=== PATIENT | female | born 1940 | race Caucasian/White ===

== ENCOUNTER → 2018-02-11 00:26 | Outpatient (CLI) | payer MEDICARE, SELFPAY ==
--- NOTE | 2018-02-11 10:10 | DI.REPORT_ITS ---
SYMPTOM/DIAGNOSIS: ABNORMAL MAMMO R928 RIGHT MAMMOGRAM: Mammograms were interpreted according to the usual protocol including computer analysis with CAD system, tomosynthesis and C view imaging. This is a 6-month follow up from August 2017 for question of asymmetry in the superior right breast. The right breast is composed of heterogeneously dense fibroglandular tissue, breast density Category C. An intramammary lymph node is again noted in the lower inner quadrant. No suspicious masses or suspicious microcalcifications are seen. The previously questioned asymmetry in the superior breast is not identified on the current exam. There has been no change when compared with exams back to 2013. IMPRESSION: Category 1-C, negative mammogram. Bilateral screening should be resumed in 6 months. [facility] ASSESSMENT OF FINDINGS: Negative. Category 1. Patient will receive a letter notifying them of these results. Bi-RADS category C. The breasts are heterogeneously dense, which may obscure small masses.
== END ==
PROVIDERS: PCP Family Medicine; Visit Provider Family Medicine
DX: Z12.31 Encounter for screening mammogram for malignant neoplasm of breast (principal); R92.8 Other abnormal and inconclusive findings on diagnostic imaging of breast; N60.81 Other benign mammary dysplasias of right breast
CPT/HCPCS: 77065; G0279; 77061

== ENCOUNTER 2018-02-28 10:42 | Outpatient (REF) | payer MEDICARE, SELFPAY ==
[2018-02-28 19:19] LABS: C-Reactive Protein 1.55 mg/dL (0.0-0.3); TSH (W/Ref FT4) 0.42 uIU/mL (0.358-3.74)
[2018-02-28 20:09] LABS: ESR 22 MM/HR (0-30)
== END 2018-02-28 10:43 ==
LOC: NCHCN 10:42
PROVIDERS: PCP Family Medicine; Visit Provider Family Medicine
DX: E03.9 Hypothyroidism, unspecified (principal); M35.3 Polymyalgia rheumatica
CPT/HCPCS: 85652; 84443; 86140

== ENCOUNTER 2018-04-07 10:23 | Outpatient (CLI) | payer MEDICARE, SELFPAY ==
--- NOTE | 2018-04-07 14:20 | DI.RAD_ITS ---
SYMPTOM/DIAGNOSIS: RT SHOULDER PAIN RIGHT SHOULDER: Three views. Mild hypertrophic changes are seen at the acromioclavicular joint. The glenohumeral joint appears well maintained. The bones are normally mineralized. The soft tissues are unremarkable. IMPRESSION: Mild degenerative changes of the right AC joint. LEFT SHOULDER: Three views. There are mild hypertrophic changes seen at the acromioclavicular joint. The glenohumeral joint appears well maintained. The bones are intact and normally mineralized. The soft tissues are unremarkable. IMPRESSION: Mild degenerative changes of the left AC joint.
== END 2018-04-07 10:43 ==
PROVIDERS: PCP Family Medicine; Referring Provider Family Medicine; Visit Provider Student in an Organized Health Care Education/Training Program
DX: M25.511 Pain in right shoulder (principal); M25.512 Pain in left shoulder; M19.011 Primary osteoarthritis, right shoulder; M19.012 Primary osteoarthritis, left shoulder
CPT/HCPCS: 99214; 73030

== ENCOUNTER 2018-04-07 14:34 | Outpatient (CLI) | payer MEDICARE, SELFPAY | END 2018-04-07 14:54 | PROVIDERS: PCP Family Medicine; Visit Provider Family Medicine | DX: M76.821 Posterior tibial tendinitis, right leg (principal); M76.822 Posterior tibial tendinitis, left leg; M67.911 Unspecified disorder of synovium and tendon, right shoulder; M67.912 Unspecified disorder of synovium and tendon, left shoulder | CPT/HCPCS: 99214 ==

== ENCOUNTER 2018-04-14 12:54 | Outpatient (REF) | payer MEDICARE, SELFPAY ==
[2018-04-14 18:57] LABS: C-Reactive Protein 1.35 mg/dL (0.0-0.3)
[2018-04-14 19:31] LABS: ESR 24 MM/HR (0-30)
== END 2018-04-14 13:14 ==
LOC: NCHCN 12:54
PROVIDERS: PCP Family Medicine; Visit Provider Family Medicine
DX: M35.3 Polymyalgia rheumatica (principal)
CPT/HCPCS: 85652; 86140

== ENCOUNTER 2018-05-14 01:52 | Outpatient (CLI) | payer MEDICARE, SELFPAY ==
[2018-05-14 16:52] LABS: C-Reactive Protein 1.36 mg/dL (0.0-0.3)
[2018-05-14 20:04] LABS: ESR 32 MM/HR (0-30)
== END 2018-05-14 02:12 ==
PROVIDERS: PCP Family Medicine; Visit Provider Internal Medicine Rheumatology
DX: M35.3 Polymyalgia rheumatica (principal); Z79.52 Long term (current) use of systemic steroids
CPT/HCPCS: 36415; 85652; 86140

== ENCOUNTER → 2018-06-02 11:17 | Outpatient (BNVA) | payer MEDICARE, SELFPAY | PROVIDERS: PCP Family Medicine; Visit Provider Student in an Organized Health Care Education/Training Program | DX: M76.821 Posterior tibial tendinitis, right leg; M76.822 Posterior tibial tendinitis, left leg | CPT/HCPCS: 99213 ==

== ENCOUNTER 2018-06-12 01:57 | Outpatient (CLI) | payer MEDICARE, SELFPAY ==
[2018-06-12 08:35] LABS: HCT 41.9 % (36.0-46.0); HGB 13.7 g/dL (12.0-15.5); Mean Corp. HGB Concentration 32.7 g/dL (32.0-36.0); Mean Corpuscular Hemoglobin 31.1 pg (27.0-33.0); Mean Platelet Volume 9.2 fL (8.0-11.0); Platelet Count 370 x1000/uL (130-400); RBC 4.41 m/cumm (4.00-5.20); RBC Distribution Width 13.7 % (11.7-14.6); White Blood Cell Count 7.82 k/cumm (4.4-10.8)
[2018-06-12 09:56] LABS: ESR 15 MM/HR (0-30)
[2018-06-12 10:13] LABS: ALT 71 U/L (12-78); AST 36 U/L (15-37); Albumin 3.7 g/dL (3.4-5.0); Alkaline Phosphatase 89 U/L (46-116); Anion Gap 10.6 mmol/L (3-11); BUN 16 mg/dL (7-18); Bilirubin, Total 0.4 mg/dL (0.2-1.0); C-Reactive Protein 0.63 mg/dL (0.0-0.3); CO2 27.4 mmol/L (21.0-32.0); Calcium 9.1 mg/dL (8.5-10.1); Chloride 100 mmol/L (98-107); Glucose 89 mg/dL (70-100); Potassium 4.2 mmol/L (3.5-5.1); Sodium 138 mmol/L (136-145); Total Protein 7.2 g/dL (6.4-8.2)
== END 2018-06-12 02:17 ==
PROVIDERS: PCP Family Medicine; Visit Provider Internal Medicine Rheumatology
DX: M35.3 Polymyalgia rheumatica (principal); Z79.52 Long term (current) use of systemic steroids
CPT/HCPCS: 36415; 80053; 85027; 85652; 86140

== ENCOUNTER 2018-07-18 07:41 | Outpatient (CLI) | payer MEDICARE, SELFPAY ==
[2018-07-18 11:17] LABS: C-Reactive Protein 0.45 mg/dL (0.0-0.3)
[2018-07-18 13:09] LABS: ESR 15 MM/HR (0-30)
== END 2018-07-18 08:01 ==
PROVIDERS: PCP Family Medicine; Visit Provider Internal Medicine Rheumatology
DX: M35.3 Polymyalgia rheumatica (principal); Z79.52 Long term (current) use of systemic steroids
CPT/HCPCS: 36415; 85652; 86140

== ENCOUNTER 2018-08-15 01:37 | Outpatient (CLI) | payer MEDICARE, SELFPAY ==
--- NOTE | 2018-08-15 09:19 | DI.MAMMO_ITS ---
SYMPTOM/DIAGNOSIS: SCREENING, Z12.39 MAMMOGRAMS: Mammograms were interpreted according to the usual protocol including computer analysis with CAD system, tomosynthesis and C view imaging. Comparison is made with prior examinations. Breast density, Category C. No suspicious masses or microcalcifications are seen. There is no definite evidence of malignancy. IMPRESSION: Negative mammogram. Routine screening is recommended. Category 1. [facility] ASSESSMENT OF FINDINGS: Negative. Category 1. Patient will receive a letter notifying them of these results. Bi-RADS category C. The breasts are heterogeneously dense, which may obscure small masses.
== END 2018-08-15 01:57 ==
PROVIDERS: PCP Family Medicine; Visit Provider Family Medicine
DX: Z12.31 Encounter for screening mammogram for malignant neoplasm of breast (principal)
CPT/HCPCS: 77063; 77067

== ENCOUNTER 2018-09-29 08:43 | Outpatient (CLI) | payer MEDICARE, SELFPAY ==
[2018-09-29 11:18] LABS: HCT 39.9 % (36.0-46.0); HGB 13.3 g/dL (12.0-15.5); Mean Corp. HGB Concentration 33.3 g/dL (32.0-36.0); Mean Corpuscular Hemoglobin 31.3 pg (27.0-33.0); Mean Corpuscular Volume 93.9 fL (80-95); Mean Platelet Volume 9.3 fL (8.0-11.0); Platelet Count 362 x1000/uL (130-400); RBC 4.25 m/cumm (4.00-5.20); White Blood Cell Count 8.02 k/cumm (4.4-10.8)
[2018-09-29 12:05] LABS: ALT 57 U/L (12-78); AST 30 U/L (15-37); Albumin 3.8 g/dL (3.4-5.0); Alkaline Phosphatase 93 U/L (46-116); Anion Gap 9.8 mmol/L (3-11); BUN 12 mg/dL (7-18); Bilirubin, Total 0.3 mg/dL (0.2-1.0); C-Reactive Protein 0.57 mg/dL (0.0-0.3); CO2 29.2 mmol/L (21.0-32.0); CREATININE 0.71 mg/dL (0.55-1.02); Calcium 9.4 mg/dL (8.5-10.1); Chloride 100 mmol/L (98-107); Glucose 100 mg/dL (70-100); Potassium 4.1 mmol/L (3.5-5.1); Sodium 139 mmol/L (136-145); Total Protein 7.2 g/dL (6.4-8.2)
[2018-09-29 12:26] LABS: ESR 15 MM/HR (0-30)
== END 2018-09-29 09:03 ==
PROVIDERS: PCP Family Medicine; Visit Provider Internal Medicine Rheumatology
DX: M35.3 Polymyalgia rheumatica (principal); Z79.52 Long term (current) use of systemic steroids
CPT/HCPCS: 36415; 80053; 85027; 85652; 86140

== ENCOUNTER → 2018-11-06 13:15 | Outpatient (BNVA) | payer MEDICARE, SELFPAY | PROVIDERS: PCP Family Medicine; Visit Provider Nurse Practitioner Gerontology | DX: N39.46 Mixed incontinence (principal) | CPT/HCPCS: 99215 ==

== ENCOUNTER 2019-01-08 01:35 | Outpatient (CLI) | payer MEDICARE, SELFPAY ==
[2019-01-08 08:46] LABS: HCT 39.8 % (36.0-46.0); Mean Corp. HGB Concentration 32.7 g/dL (32.0-36.0); Mean Corpuscular Hemoglobin 30.4 pg (27.0-33.0); Mean Corpuscular Volume 93.2 fL (80-95); Mean Platelet Volume 9.8 fL (8.0-11.0); Platelet Count 328 x1000/uL (130-400); RBC 4.27 m/cumm (4.00-5.20); RBC Distribution Width 14.2 % (11.7-14.6); White Blood Cell Count 7.02 k/cumm (4.4-10.8)
[2019-01-08 09:50] LABS: ALT 94 U/L (12-78); Albumin 3.6 g/dL (3.4-5.0); Alkaline Phosphatase 115 U/L (46-116); Anion Gap 9.8 mmol/L (3-11); BUN 23 mg/dL (7-18); Bilirubin, Total 0.2 mg/dL (0.2-1.0); C-Reactive Protein 0.67 mg/dL (0.0-0.3); CO2 27.2 mmol/L (21.0-32.0); CREATININE 0.87 mg/dL (0.55-1.02); Calcium 8.8 mg/dL (8.5-10.1); Chloride 105 mmol/L (98-107); Glucose 103 mg/dL (70-100); Potassium 4.4 mmol/L (3.5-5.1); Sodium 142 mmol/L (136-145); TSH (W/Ref FT4) 0.48 uIU/mL (0.358-3.74)
[2019-01-08 09:53] LABS: ESR 16 MM/HR (0-30)
[2019-01-08 10:24] LABS: AST 64 U/L (15-37)
== END 2019-01-08 01:55 ==
PROVIDERS: PCP Family Medicine; Visit Provider Family Medicine
DX: E03.9 Hypothyroidism, unspecified (principal); E78.5 Hyperlipidemia, unspecified; R53.83 Other fatigue
CPT/HCPCS: 36415; 80053; 85027; 85652; 84443; 86140

== ENCOUNTER → 2019-03-10 11:35 | Outpatient (BNVA) | payer MEDICARE, SELFPAY | PROVIDERS: PCP Family Medicine; Visit Provider Nurse Practitioner Gerontology | DX: N39.46 Mixed incontinence (principal) | CPT/HCPCS: 99213 ==

== ENCOUNTER 2019-04-09 12:18 | Outpatient (REF) | payer MEDICARE, SELFPAY ==
[2019-04-09 13:40] LABS: Iron 129 ug/dL (50-175); Total Iron Binding Capacity 305 ug/dL (250-450); Transferrin Sat 42 % (15-50)
[2019-04-09 13:44] LABS: ALT 173 U/L (14-59); AST 81 U/L (15-37); Albumin 3.9 g/dL (3.4-5.0); Alkaline Phosphatase 119 U/L (46-116); Bilirubin, Total 0.5 mg/dL (0.2-1.0); CREATININE 0.79 mg/dL (0.55-1.02); Ferritin 330 ng/mL (8-388); Total Protein 7.6 g/dL (6.4-8.2)
[2019-04-09 14:02] LABS: Bilirubin, Direct 0.11 mg/dL (0.00-0.20)
[2019-04-09 14:57] LABS: ESR 18 mm/hr (0-30)
[2019-04-10 10:40] LABS: Hepatitis A Antibody IgM Negative (NEGAT); Hepatitis B Core Antibody Negative (NEGAT); Hepatitis B surface Ag Negative (NEGAT); Hepatitis C Ab w Rflx HCV PCR Negative (NEGAT)
== END 2019-04-09 12:38 ==
LOC: NCHCN 12:18
PROVIDERS: PCP Family Medicine; Visit Provider Family Medicine
DX: M35.3 Polymyalgia rheumatica (principal); R32 Unspecified urinary incontinence; R79.89 Other specified abnormal findings of blood chemistry
CPT/HCPCS: 80076; 85652; 86704; 86709; 86803; 87340; 82565; 82728; 83540; 83550

== ENCOUNTER 2019-05-11 01:16 | Outpatient (CLI) | payer MEDICARE, SELFPAY ==
--- NOTE | 2019-05-11 07:00 | DI.US_ITS ---
EXAM: US ABDOMEN CLINICAL HISTORY: ELEVATED LFT'S,R79.89 TECHNIQUE: Ultrasound performed using standard protocol. COMPARISON: No previous for comparison FINDINGS: The aorta and inferior vena cava are unremarkable. The liver measures 17 cm in length. There is diffuse increased echogenicity of the liver consistent with fatty infiltration. There does appear to be a lobulated contour of the liver with an enlarged l eft lobe. Hepatic cirrhosis should be considered. No hepatic mass is seen. There is hepatopetal fl ow through the portal vein. The gallbladder is unremarkable. No gallbladder wall thickening or pericholecystic fluid is seen. T here is a negative sonographic Aguillon's sign. The common duct is within normal limits at 2.7 mm. The pancreas is unremarkable as visualized. The spleen and kidneys are unremarkable as visualized. No free fluid is seen in the abdomen. IMPRESSION: 1. Findings consistent with hepatic steatosis. 2. Appearance of the liver raises the question of hepatic cirrhosis. Please correlate clinically.
== END 2019-05-11 01:36 ==
PROVIDERS: PCP Family Medicine; Visit Provider Family Medicine
DX: K76.0 Fatty (change of) liver, not elsewhere classified (principal); R79.89 Other specified abnormal findings of blood chemistry; R16.0 Hepatomegaly, not elsewhere classified
CPT/HCPCS: 76700

== ENCOUNTER → 2019-05-18 13:23 | Outpatient (BNVA) | payer MEDICARE, SELFPAY | PROVIDERS: PCP Family Medicine; Referring Provider Family Medicine; Visit Provider Nurse Practitioner Gerontology | DX: N39.46 Mixed incontinence (principal) | CPT/HCPCS: 99213 ==

== ENCOUNTER 2019-05-30 09:20 | Outpatient (CLI) | payer MEDICARE, SELFPAY ==
[2019-05-30 11:38] LABS: ALT 102 U/L (14-59); AST 47 U/L (15-37); Albumin 3.9 g/dL (3.4-5.0); Alkaline Phosphatase 90 U/L (46-116); Anion Gap 14.4 mmol/L (3-11); BUN 23 mg/dL (7-18); Bilirubin, Total 0.4 mg/dL (0.2-1.0); CO2 25.6 mmol/L (21.0-32.0); CREATININE 0.69 mg/dL (0.55-1.02); Calcium 8.9 mg/dL (8.5-10.1); Calculated LDL 159 mg/dL; Chloride 100 mmol/L (98-107); Cholesterol 252 mg/dL (<200); Glucose 125 mg/dL (74-106); HDL Cholesterol 78 mg/dL (40-60); Potassium 4.3 mmol/L (3.5-5.1); Sodium 140 mmol/L (136-145); Total Protein 7.3 g/dL (6.4-8.2); Triglyceride 76 mg/dL (<150)
== END 2019-05-30 09:40 ==
PROVIDERS: PCP Family Medicine; Visit Provider Family Medicine
DX: E78.5 Hyperlipidemia, unspecified (principal); R79.89 Other specified abnormal findings of blood chemistry
CPT/HCPCS: 36415; 80053; 80061

== ENCOUNTER 2019-06-06 10:24 | Outpatient (CLI) | payer MEDICARE, SELFPAY ==
[2019-06-06 11:22] LABS: HCT 41.8 % (36.0-46.0); HGB 14.1 g/dL (12.0-15.5); Mean Corp. HGB Concentration 33.7 g/dL (32.0-36.0); Mean Platelet Volume 8.9 fL (8.0-11.0); Platelet Count 402 x1000/uL (130-400); RBC Distribution Width 13.3 % (11.7-14.6); White Blood Cell Count 7.09 k/cumm (4.4-10.8)
[2019-06-06 12:04] LABS: ESR 19 mm/hr (0-30)
[2019-06-06 12:27] LABS: ALT 76 U/L (14-59); AST 37 U/L (15-37); Albumin 4.2 g/dL (3.4-5.0); Alkaline Phosphatase 85 U/L (46-116); Anion Gap 9.7 mmol/L (3-11); BUN 22 mg/dL (7-18); Bilirubin, Total 0.4 mg/dL (0.2-1.0); CO2 29.3 mmol/L (21.0-32.0); CREATININE 0.71 mg/dL (0.55-1.02); Calcium 9.5 mg/dL (8.5-10.1); Chloride 99 mmol/L (98-107); Glucose 102 mg/dL (74-106); Potassium 4.2 mmol/L (3.5-5.1); Sodium 138 mmol/L (136-145); TSH (W/Ref FT4) 3.49 uIU/mL (0.36-3.74); Total Protein 7.6 g/dL (6.4-8.2)
[2019-06-08 11:34] LABS: IgA 395 mg/dL (85-499); IgG 1014 mg/dL (610-1,616); IgM 56 mg/dL (35-242)
[2019-06-08 14:21] LABS: ANA Interpretation Negative (Negative)
[2019-06-08 15:52] LABS: Albumin 60.3 % (55.8-66.1); Total Protein 7.5 g/dL (6.3-8.2)
[2019-06-09 12:33] LABS: Smooth Muscle Ab Screen Negative (Negative)
[2019-06-09 15:43] LABS: Liver/Kidney Microsome Type 1 <5.0 U
== END 2019-06-06 10:44 ==
PROVIDERS: PCP Family Medicine; Visit Provider Family Medicine
DX: E03.9 Hypothyroidism, unspecified (principal); E78.5 Hyperlipidemia, unspecified; R53.83 Other fatigue; R79.89 Other specified abnormal findings of blood chemistry; M35.3 Polymyalgia rheumatica; R32 Unspecified urinary incontinence
CPT/HCPCS: 36415; 80053; 82390; 82784; 85027; 85652; 84165; 84443; 86038; 86140; 86255

== ENCOUNTER → 2019-08-18 14:55 | Outpatient (BNVA) | payer MEDICARE, SELFPAY | PROVIDERS: PCP Family Medicine; Referring Provider Family Medicine; Visit Provider Nurse Practitioner Gerontology | DX: N39.46 Mixed incontinence (principal) | CPT/HCPCS: 99213 ==

== ENCOUNTER 2019-09-01 18:22 | Outpatient (REF) | payer MEDICARE, SELFPAY ==
[2019-09-01 19:13] LABS: ALT 44 U/L (14-59); AST 29 U/L (15-37); Albumin 3.9 g/dL (3.4-5.0); Alkaline Phosphatase 96 U/L (46-116); Bilirubin, Total 0.3 mg/dL (0.2-1.0); Calculated LDL 118 mg/dL (<100); Cholesterol 214 mg/dL (<200); HDL Cholesterol 64 mg/dL (40-60); Total Protein 7.2 g/dL (6.4-8.2); Triglyceride 164 mg/dL (<150)
[2019-09-01 19:44] LABS: Bilirubin, Direct 0.08 mg/dL (0.00-0.20)
== END 2019-09-01 18:42 ==
LOC: NCHCN 18:22
PROVIDERS: PCP Family Medicine; Visit Provider Family Medicine
DX: R79.89 Other specified abnormal findings of blood chemistry (principal)
CPT/HCPCS: 80061; 80076

== ENCOUNTER 2019-09-08 09:42 | Outpatient (REF) | payer MEDICARE, SELFPAY | END 2019-09-08 10:02 | LOC: NCHCN 09:42 | PROVIDERS: PCP Family Medicine; Visit Provider Family Medicine | DX: M35.3 Polymyalgia rheumatica (principal) | CPT/HCPCS: 85652 ==

== ENCOUNTER 2019-09-09 17:55 | Outpatient (REF) | payer MEDICARE, SELFPAY ==
[2019-09-09 20:29] LABS: ESR 23 mm/hr (0-30)
== END 2019-09-09 18:15 ==
LOC: NCHCN 17:55
PROVIDERS: PCP Family Medicine; Visit Provider Family Medicine
DX: M35.3 Polymyalgia rheumatica (principal)
CPT/HCPCS: 85652

== ENCOUNTER → 2019-10-01 10:39 | Outpatient (BNVA) | payer MEDICARE, SELFPAY | PROVIDERS: PCP Family Medicine; Referring Provider Family Medicine; Visit Provider Nurse Practitioner Gerontology | DX: N39.46 Mixed incontinence (principal) | CPT/HCPCS: 99212; 99213 ==

== ENCOUNTER 2019-10-28 17:29 | Outpatient (REF) | payer MEDICARE, SELFPAY ==
[2019-11-26 10:23] LABS: Fungus Smear No Fungi Seen
== END 2019-10-28 17:49 ==
LOC: NCHCN 17:29
PROVIDERS: PCP Family Medicine; Visit Provider Family Medicine
DX: B35.1 Tinea unguium (principal)
CPT/HCPCS: 87101; 87206

== ENCOUNTER → 2020-01-05 09:59 | Outpatient (BNVA) | payer MEDICARE, SELFPAY | PROVIDERS: PCP Family Medicine; Referring Provider Family Medicine; Visit Provider Nurse Practitioner Gerontology | DX: N39.46 Mixed incontinence (principal) | CPT/HCPCS: 99213 ==

== ENCOUNTER 2020-01-22 01:49 | Outpatient (CLI) | payer MEDICARE, SELFPAY ==
[2020-01-22 08:25] LABS: HCT 39.3 % (36.0-46.0); HGB 13.1 g/dL (12.0-15.5); Mean Corp. HGB Concentration 33.3 g/dL (32.0-36.0); Mean Corpuscular Hemoglobin 30.6 pg (27.0-33.0); Mean Corpuscular Volume 91.8 fL (80-95); Platelet Count 397 x1000/uL (130-400); RBC 4.28 m/cumm (4.00-5.20); RBC Distribution Width 13.8 % (11.7-14.6); White Blood Cell Count 5.52 k/cumm (4.4-10.8)
[2020-01-22 08:51] LABS: Hemoglobin A1C 5.7 % (3.8-5.6)
[2020-01-22 09:08] LABS: ESR 23 mm/hr (0-30)
[2020-01-22 09:23] LABS: ALT 35 U/L (14-59); AST 21 U/L (15-37); Albumin 3.8 g/dL (3.4-5.0); Alkaline Phosphatase 81 U/L (46-116); BUN 22 mg/dL (7-18); Bilirubin, Total 0.4 mg/dL (0.2-1.0); CREATININE 0.66 mg/dL (0.55-1.02); Calcium 9.1 mg/dL (8.5-10.1); Calculated LDL 136 mg/dL (<100); Chloride 102 mmol/L (98-107); Cholesterol 214 mg/dL (<200); Glucose 106 mg/dL (74-106); HDL Cholesterol 51 mg/dL (40-60); Potassium 4.3 mmol/L (3.5-5.1); Sodium 137 mmol/L (136-145); Total Protein 7.1 g/dL (6.4-8.2); Triglyceride 137 mg/dL (<150)
== END 2020-01-22 02:09 ==
PROVIDERS: PCP Family Medicine; Visit Provider Internal Medicine Gastroenterology
DX: K76.0 Fatty (change of) liver, not elsewhere classified (principal); M35.3 Polymyalgia rheumatica; E03.9 Hypothyroidism, unspecified
CPT/HCPCS: 36415; 80053; 80061; 85027; 85652; 83036

== ENCOUNTER 2020-03-10 01:33 | Outpatient (CLI) | payer MEDICARE, SELFPAY ==
--- NOTE | 2020-03-10 | DI.DEXA_ITS ---
EXAM: XR DEXA BONE DENSITY W/WO NADIA CLINICAL HISTORY: OSTEOPENIA,M85,88,DISORDER OF BONE DENSITY TECHNIQUE: ACTV8me Horizon C densitometer COMPARISON: 2003, 2006, 2009 and 2013 FINDINGS: Lateral asbestos remover view of the thoracic and lumbar spine shows no evidence of compression fracture. The b one mineral density measurements of lumbar spine correspond to a total T-score of -1.2, in the osteop enic range. This is not significantly changed from 2014. This represents a 3.9 percent increase whe n compared with 2003 baseline exam. The bone mineral density measurements of the left hip correspond to a total T-score of -0.4, in the n ormal range. This represents a 6.5 percent increase when compared with 2013 and a 9.9 percent increa se when compared with 2002. Bone mineral density measurements of the right forearm correspond to a total T-score of -2.3, in the osteopenic range. The T-score of the distal 3rd is -2.4. This is not significantly changed from 201 4. There has been a 2.9 percent decrease when compared with 2009. IMPRESSION: Osteopenia of the lumbar spine and normal bone mineral density of the left hip with increase in bone density when compared with previous exams. Osteopenia of the right forearm with mild decrease when c ompared with previous exams.
--- NOTE | 2020-03-10 10:47 | DI.MAMMO_ITS ---
EXAM: MAMMO SCREENING CLINICAL HISTORY: SCREENING,Z12.39 TECHNIQUE: Mammograms were interpreted according to the usual protocol including computer analysis w [employer] CAD system, tomosynthesis and C-view imaging. COMPARISON: 2009 through 2018 FINDINGS: The breasts are composed of heterogeneously dense fibroglandular densities, Breast Density category C . No suspicious masses or suspicious microcalcifications are seen. No skin thickening or abnormal axillary lymph nodes are seen. There has been no significant change from prior exams. IMPRESSION: BI-RADS Category 1: Negative mammogram Yearly screening mammography is recommended. Breast Density - Category C, heterogeneously dense tissue which decreases the sensitivity of the mamm ogram. The mammogram demonstrates the patient's breast tissue is dense. Dense breast tissue is very common a nd is not abnormal but dense breast tissue can make it harder to find cancer on a mammogram. Also, de nse breast tissue may increase breast cancer risk. This information about the result of the mammogram report was provided to the patient to raise their awareness. Use this report when you speak with the patient about their risks for breast cancer, which includes their family history. At that time, you may recommend additional screening tests (Ultrasound or MRI) as they might be useful based on their r isk. A negative radiographic report should not delay biopsy if a dominant or clinically suspicious mass is present. Up to ten percent of cancers are not identified on mammography. A negative report may reinforce clinical impression. Adenosis and dense breasts may obscure an underlying neoplasm. False positive reports average 6 to 10%.
== END 2020-03-10 01:53 ==
PROVIDERS: PCP Family Medicine; Visit Provider Family Medicine
DX: Z12.31 Encounter for screening mammogram for malignant neoplasm of breast (principal); R92.2 Inconclusive mammogram; M85.89 Other specified disorders of bone density and structure, multiple sites
CPT/HCPCS: 77063; 77067; 77080

== ENCOUNTER 2020-06-07 08:28 | Outpatient (REF) | payer MEDICARE, SELFPAY ==
[2020-06-07 18:14] LABS: HCT 39.5 % (36.0-46.0); HGB 13.2 g/dL (11.2-15.7); MCH 30.6 pg (27.0-33.0); MCHC 33.4 % (32.0-36.0); MCV 91.6 fL (80-95); MPV 11.7 fL (8.0-11.0); Platelet Count 376 10^3/uL (130-400); RBC 4.31 10^6/uL (3.93-5.22); RDW 14.6 % (11.7-14.6); RDW-SD 49.6 fL
[2020-06-07 18:32] LABS: Hemoglobin A1C 5.2 % (<5.7)
[2020-06-07 18:42] LABS: ALT 263 U/L (14-59); AST 196 U/L (15-37); Albumin 3.4 g/dL (3.4-5.0); Anion Gap 9.4 mmol/L (3-11); BUN 19 mg/dL (7-18); Bilirubin, Total 3.9 mg/dL (0.2-1.0); C-Reactive Protein 4.74 mg/dL (0.0-0.3); CO2 25.6 mmol/L (21.0-32.0); CREATININE 0.73 mg/dL (0.55-1.02); Calcium 9.3 mg/dL (8.5-10.1); Chloride 98 mmol/L (98-107); Glucose 112 mg/dL (74-106); Sodium 133 mmol/L (136-145); Total Protein 7.2 g/dL (6.4-8.2)
[2020-06-07 18:44] LABS: Alkaline Phosphatase 1550 U/L (46-116)
[2020-06-07 19:09] LABS: ESR 52 mm/hr (0-30)
[2020-06-07 19:38] LABS: Vitamin D 25 Total 43.5 ng/ml (30-100)
== END 2020-06-07 08:48 ==
LOC: NCHCN 08:28
PROVIDERS: PCP Family Medicine; Visit Provider Family Medicine
DX: R73.03 Prediabetes (principal); E03.9 Hypothyroidism, unspecified; K76.0 Fatty (change of) liver, not elsewhere classified; M85.80 Other specified disorders of bone density and structure, unspecified site; M35.3 Polymyalgia rheumatica
CPT/HCPCS: 80053; 82306; 85027; 85652; 83036; 84443; 86140

== ENCOUNTER 2020-06-07 10:20 | Observation (INO) | payer MEDICARE, SELFPAY ==
[2020-06-07] VITALS (54 sets, daily range): BP systolic 133–166; BP diastolic 51–102; PULSE 60–78; RESP 9–25; TEMP 36.1–36.8; O2SAT 93–99
--- NOTE | 2020-06-07 10:15 | RT.EKG_ITS ---
APPROVED REPORT Exam: Resting ECG Patient Location: E HR:59 bpm ECG Measurements Heart Rate 59 AXIS VA 175 P 43 QRSd 90 QRS 27 QT 404 T 26 QTc 402 Conclusion Sinus bradycardia...rate< 60 Probable left atrial enlargement...P >50mS, <-0.10mV V1 1mm ST depression in I, V3-5. Less than 1mm ST depression in II, aVL, aVF, V6. T wave inversion in V2. No STEMI.
--- NOTE | 2020-06-07 10:27 | W.ED.GENAD ---
Discharge Plan Disposition Patient Disposition: [facility] INPATIENT Condition: Stable Discharge Details Clinical Impression: Abnormal ECG, Pancreatic mass, Mass of left lung Primary Care Provider: Aissatou Grayson ED Provider: Alexa Lala Home Meds and New Rx's Prescriptions: No Action fluoxetine 20 mg capsule 20 mg PO DAILY RF: 0 prednisone 1 mg tablet 1 mg PO DAILY RF: 0 Myrbetriq 25 mg tablet extended release 24 hr 25 mg PO DAILY Qty: 90 RF: 4 Hold Instructions: Home Medication placed on hold at Doctor's office tolterodine 4 mg capsule,extended release 24hr 4 mg PO DAILY Qty: 90 RF: 1 aspirin [Aspir-81] 81 MG tablet,delayed release (DR/EC) 81 mg PO QAM RF: 0 triamcinolone acetonide 5 GM paste 1 ea Topical PRN PRNRF: 0 estradiol [Estrace] 42.5 GM cream 1 ea VG .2X A WEEK RF: 0 hydroxyzine HCl 10 MG tablet 10 mg PO PRN PRNRF: 0 diphenhydramine HCl [NightTime Sleep Aid (diphen)] 25 MG tablet 25 mg PO PRN PRNRF: 0 diphenhydramine-acetaminophen [Tylenol PM Extra Strength] 1 EACH tablet 1 ea PO HS PRN PRNRF: 0 levothyroxine [Levoxyl] 112 MCG tablet 112 mcg PO DAILY RF: 0 sulfamethoxazole-trimethoprim 1 TAB tablet 1 ea PO BID PRNRF: 0 vitamin B complex [B-Complex] 1 EACH tablet 1 ea PO DAILY RF: 0 magnesium 250 MG tablet 1 tab PO DAILY RF: 0 coenzyme Q10 [Co Q-10] 30 MG capsule 50 mg PO DAILY RF: 0 iron 18 MG tablet 18 mg PO DAILY RF: 0 red yeast rice 600 MG capsule 600 mg PO BID RF: 0 calcium carbonate-vitamin D3 [Calcium 500 With D] 1 EACH tablet 1 ea PO DAILY RF: 0 Emergen-C 1,000 MG powder effervescent in packet 1 ea PO DAILY RF: 0 Medical Decision Making 1010 -- 79-year-old female with a history of hypothyroidism and polymyalgia rheumatica chronically on oral steroids presents for intermittent nausea and intermittent aching chest and epigastric pain for the past 6 weeks. Sent from [facility] for complaint of chest pain in setting of abnormal EKG with no previous EKG to compare. EKG on arrival notes a rate of 59, sinus with [address] depression in anterior lateral leads and less than 1 mm depression in inferior leads. No STEMI. Differential diagnosis includes ACS, cholecystitis, cholelithiasis, hepatitis, peptic ulcer disease, gastritis, gastroenteritis. Will place an IV, bolus IV fluids, screening labs, CT chest abdomen pelvis and give Pepcid and Zofran and reassess. 1230 -- Labs reviewed and note a normal white blood cell count but with significant elevation in liver enzymes, specifically alkaline phosphatase at 1503 and total bilirubin at 4.1. US abdomen notes gallbladder distension and dilatation of gallbladder duct. CT notes IMPRESSION: 2.5 cm in diameter uncinate process pancreatic mass, suspicious for carcinoma, causing obstruction of the common bile duct. No gross associated regional or remote lymphadenopathy, an 8 millimeter pericaval node is noted which could conceivably represent metastatic lesion.. 14 millimeter in diameter smooth, well-circumscribed heterogeneous left lower lobe lung mass, indeterminate. Metastatic versus primary carcinoma versus other benign etiologies. Correlation with PET CT suggested. 1300 -- Case d/w Dr. Elder who recommends that pt would need an ERCP or endoscopic US with biopsy for further evaluation of pancreatic mass. We will consult [facility] for recommendations as well as [facility] cardiology for any recommendations for abnormal EKG. We will repeat a troponin and EKG. Repeat EKG unchanged with slight improvement and ST depressions. No STEMI. 1400 --Case discussed with [facility] cardiology who recommends overnight telemetry monitoring with plan for stress test as soon as possible, especially in the case of this needing any GI procedures to be able to rule out any acute cardiac disease. Does not see an acute indication for transfer unless any acute change in symptoms or work-up. Case discussed with [facility] GI who reviewed imaging and recommends outpatient EUS or ERCP. Recommends obtaining a CEA 19-9. Does not see an acute indication for transfer. Case discussed with Dr. Elder who will start the referral process for [facility]. Case discussed with hospitalist who accepts patient for admission. Medical Records Medical records reviewed: Yes I reviewed the patient's medical records. Imaging Data Radiologic Study: Radiologist's impression: US ABDOMEN LIMITED INDICATION: epigastric pain, r/o cholecystitis COMPARISON: US US ABDOMEN from 05/11/2019 TECHNIQUE: Ultrasound abdomen performed using standard protocol FINDINGS: Abdominal ultrasound was performed according to the usual protocol. The liver is normal in size and shape. No focal hepatic lesion seen. There is no evidence of cholelithiasis.. No gallbladder wall thickening or pericholecystic fluid collection. Note is made of gallbladder sludge and mild gallbladder distention, these are nonspecific findings. There is moderate dilatation common bile duct at about 12 millimeters. Pancreas appears intact as visualized, abdominal CT today showed findings suggesting mass of the uncinate process of pancreas which is not appreciated ultrasonographically. Spleen is unremarkable in appearance with no focal lesion. Kidneys are normal in size and shape. No renal mass, hydronephrosis, or nephrolithiasis. Abdominal aorta and IVC are of normal diameter. IMPRESSION: Gallbladder distension and sludge, no evidence of cholelithiasis. Dilatation of the common hepatic duct is noted, obstruction is likely at the level of the head of the pancreas. CT CHEST/ABD/PEL W CLINICAL HISTORY: epigastric/chest pain, r/o gallstones TECHNIQUE: CT examination of the chest, abdomen, and pelvis was performed utilizing intravenous infusion of 100 cc of Omnipaque 350. COMPARISON: No exams were available for comparison FINDINGS: Lungs are predominantly clear. However, there is a 14 millimeter in diameter smooth walled rounded mass seen in left lower lobe lying adjacent to segmental vessels. This measures 80 Hounsfield units mean attenuation. Differential diagnosis would include neoplastic process including primary or neoplastic disease. Benign infectious or inflammatory process not excluded, benign tumor such as pulmonary hamartoma not excluded, aneurysm not excluded. No additional intrapulmonary lesion identified. No pleural effusion. No pleural based mass. No mediastinal or hilar adenopathy. No axillary or supraclavicular adenopathy. Tracheobronchial tree appears intact. No evidence of pulmonary embolic disease. Unremarkable appearance of thoracic aorta and major branch vessels. No focal hepatic lesion identified. There is moderate intra and extrahepatic biliary dilatation. The ducts appear dilated to the level of the head of the pancreas. There is a 2.5 cm in diameter poorly defined heterogeneous low-attenuation mass with some nodular excrescences of the uncinate process of the pancreas, this is likely to be the cause of the biliary obstruction. The most distal portion of the common bile duct appears nondilated. The findings are highly suggestive of pancreatic neoplasm. Adrenals appear normal. Kidneys are unremarkable in appearance with no renal mass, hydronephrosis, or nephrolithiasis. Abdominal aorta and major visceral branches appear intact. No focal bowel pathology. Appendix is normal. No evidence of diverticulitis. No abdominal or pelvic adenopathy. There is an 8 millimeter in diameter pericaval node seen just above level of the uncinate process pancreatic mass, nonspecific. No significant abdominal wall hernia. No focal bony lesion identified on scanning of the chest, abdomen, and pelvis. IMPRESSION: 2.5 cm in diameter uncinate process pancreatic mass, suspicious for carcinoma, causing obstruction of the common bile duct. No gross associated regional or remote lymphadenopathy, an 8 millimeter pericaval node is noted which could conceivably represent metastatic lesion.. 14 millimeter in diameter smooth, well-circumscribed heterogeneous left lower lobe lung mass, indeterminate. Metastatic versus primary carcinoma versus other benign etiologies. Correlation with PET CT suggested. Lab Data Lab results reviewed: Yes I reviewed the patient's lab results. Labs: Laboratory Tests Range/Units 06/07/20 06/07/20 06/07/20 10:35 10:35 10:35 WBC (4.4-10.8) 10^3/uL 7.49 RBC (3.93-5.22) 10^6/uL 4.29 Hgb (11.2-15.7) g/dL 13.2 Hct (36.0-46.0) % 38.8 MCV (80-95) fL 90.4 MCH (27.0-33.0) pg 30.8 MCHC (32.0-36.0) % 34.0 RDW (11.7-14.6) % 14.6 Plt Count (130-400) 10^3/uL 364 MPV (8.0-11.0) fL 10.4 Immature Gran % 0.7 Neutrophils % 59.4 Lymphocytes % 28.8 Monocytes % 8.1 Eosinophils % 2.1 Basophils % 0.9 Nucleated RBC % % 0 Absolute Neutrophils (1.2-6.7) 10^3/uL 4.44 Absolute Lymphocytes (1.2-3.4) 10^3/uL 2.16 Absolute Monocytes (0.1-0.8) 10^3/uL 0.61 Absolute Eosinophils (0.0-0.7) 10^3/uL 0.16 Absolute Basophils (0.0-0.2) 10^3/uL 0.07 PT (9.3-11.0) sec 9.8 INR (0.9-1.1) 1.0 APTT (21.0-27.5) sec 24.3 Sodium (136-145) mmol/L 134 L Potassium (3.5-5.1) mmol/L 3.6 Chloride (98-107) mmol/L 98 Carbon Dioxide (21.0-32.0) mmol/L 27.5 Anion Gap (3-11) mmol/L 8.5 BUN (7-18) mg/dL 16 Creatinine (0.55-1.02) mg/dL 0.64 Estimated GFR/1.73 m2 (mL/min/1.73m2) >= 60.00 Glucose (74-106) mg/dL 104 Calcium (8.5-10.1) mg/dL 9.5 Magnesium (1.8-2.4) mg/dL 2.0 Total Bilirubin (0.2-1.0) mg/dL 4.1 H Conjugated Bilirubin (0.00-0.20) mg/dL AST (15-37) U/L 191 H ALT (14-59) U/L 262 H Alkaline Phosphatase (46-116) U/L 1503 H Troponin I (<0.06) ng/mL < 0.05 Total Protein (6.4-8.2) g/dL 7.8 Albumin (3.4-5.0) g/dL 3.4 Lipase (73-393) U/L 89 TSH (0.36-3.74) uIU/mL Range/Units 06/07/20 06/07/20 10:35 10:35 WBC (4.4-10.8) 10^3/uL RBC (3.93-5.22) 10^6/uL Hgb (11.2-15.7) g/dL Hct (36.0-46.0) % MCV (80-95) fL MCH (27.0-33.0) pg MCHC (32.0-36.0) % RDW (11.7-14.6) % Plt Count (130-400) 10^3/uL MPV (8.0-11.0) fL Immature Gran % Neutrophils % Lymphocytes % Monocytes % Eosinophils % Basophils % Nucleated RBC % % Absolute Neutrophils (1.2-6.7) 10^3/uL Absolute Lymphocytes (1.2-3.4) 10^3/uL Absolute Monocytes (0.1-0.8) 10^3/uL Absolute Eosinophils (0.0-0.7) 10^3/uL Absolute Basophils (0.0-0.2) 10^3/uL PT (9.3-11.0) sec INR (0.9-1.1) APTT (21.0-27.5) sec Sodium (136-145) mmol/L Potassium (3.5-5.1) mmol/L Chloride (98-107) mmol/L Carbon Dioxide (21.0-32.0) mmol/L Anion Gap (3-11) mmol/L BUN (7-18) mg/dL Creatinine (0.55-1.02) mg/dL Estimated GFR/1.73 m2 (mL/min/1.73m2) Glucose (74-106) mg/dL Calcium (8.5-10.1) mg/dL Magnesium (1.8-2.4) mg/dL Total Bilirubin (0.2-1.0) mg/dL Conjugated Bilirubin (0.00-0.20) mg/dL 3.59 H AST (15-37) U/L ALT (14-59) U/L Alkaline Phosphatase (46-116) U/L Troponin I (<0.06) ng/mL Total Protein (6.4-8.2) g/dL Albumin (3.4-5.0) g/dL Lipase (73-393) U/L TSH (0.36-3.74) uIU/mL 0.58 ECG Data Attestation: I personally reviewed and interpreted this ECG (s) as follows: Interpretation: #1 -- Rate of 59, sinus, [address] depression in 1, V3 through V5. Less than [address] depression in 2, aVL, aVF. T wave inversion in lead III and V2. No acute ST elevation. DE 175. QRS 90. QTc 402. #2 -- Rate is 63, sinus, [address] depression in V3 through V5 and lead I. Less than [address] depression in 2, aVL and aVF. T wave inversion in lead II. No STEMI. DE 131. QRS 92. QTc 422. HPI General Mode of arrival: ambulatory. Date/Time Provider Initiated Documentation: 06/07/20 10:22. Limitations to Documentation: no limitations. Information obtained by: patient. HPI Narrative: Patient is a 79-year-old female with a history of hypothyroidism, polymyalgia rheumatica chronically on oral prednisone down to 1 mg daily for the past 2 years presents for chest and abdominal pain and nausea for the past 6 weeks. She states the symptoms feel like aching that is intermittent with occasional radiation of her chest into her back. She states the pain is currently 1/10 but at its worst can be 8/10. She states she has had heartburn in the past which is usually relieved with Tums and Nexium but states for the past 6 weeks, she has only had intermittent relief with these medications. She states she also takes bicarbonate of soda occasionally with occasional relief. She was seen today at [facility] for stomach pain and was referred here for further evaluation when she was noted to have inverted T waves in the anterior leads and was pointing to her chest as the location of her symptoms. Patient admits to occasional vomiting due to nausea when brushing her teeth but none recently. She states her urine has been dark and her stool was recently pale but is now loose and green. She denies any fever, chest pain, shortness of breath, urinary symptoms, recent travel, recent known sick contacts or recent known exposure to coronavirus. She states she has had increased stress recently with caring for her sister and neighbor who recently . Related Data Home Medications Medication Instructions Recorded Confirmed aspirin [Aspir 81] 81 mg PO QAM 07/16/15 06/07/20 estradiol [Estrace] 1 ea VG .2X A WEEK 07/16/15 06/07/20 hydroxyzine HCl 10 mg PO PRN PRN 07/16/15 06/07/20 triamcinolone acetonide 1 ea TOPICAL PRN PRN 07/16/15 06/07/20 ascorbic hira-[id number]-[id number] 1 ea PO DAILY 08/03/16 06/07/20 [Emergen-C 1,000 mg Packet] calcium carbonate-vitamin D3 1 ea PO DAILY 08/03/16 06/07/20 [Calcium 500 + Vit D 400 Tablet] coenzyme Q10 [Co Q-10] 50 mg PO DAILY 08/03/16 06/07/20 diphenhydramine HCl [Nighttime 25 mg PO PRN PRN 08/03/16 06/07/20 Sleep Aid] diphenhydramine-acetaminophen 1 ea PO HS PRN PRN 08/03/16 06/07/20 [Tylenol Pm Ex-Strength Caplet] iron 18 mg PO DAILY 08/03/16 06/07/20 levothyroxine [Levoxyl] 112 mcg PO DAILY 08/03/16 06/07/20 magnesium 1 tab PO DAILY 08/03/16 06/07/20 red yeast rice 600 mg PO BID 08/03/16 06/07/20 sulfamethoxazole-trimethoprim 1 ea PO BID PRN 08/03/16 06/07/20 vitamin B complex [B Complex] 1 ea PO DAILY 08/03/16 06/07/20 fluoxetine 20 mg capsule 20 mg PO DAILY 08/18/19 06/07/20 prednisone 1 mg tablet 1 mg PO DAILY 08/18/19 06/07/20 mirabegron 25 mg tablet,extended 25 mg PO DAILY #90 tab 09/25/19 06/07/20 release 24 hr tolterodine 4 mg capsule,extended 4 mg PO DAILY #90 cap 04/20/20 06/07/20 release 24 hr Previous Rx's Medication Instructions Recorded mirabegron 25 mg tablet,extended 25 mg PO DAILY #90 tab 09/25/19 release 24 hr tolterodine 4 mg capsule,extended 4 mg PO DAILY #90 cap 04/20/20 release 24 hr Allergies Allergy/AdvReac Type Severity Reaction Status Date / Time duloxetine HCl AdvReac Unknown Unverified 06/07/20 10:35 [From Kalin] black flies AdvReac Severe hives Uncoded 06/07/20 10:35 wood smoke AdvReac Severe hives Uncoded 06/07/20 10:35 Review of Systems All systems reviewed & are unremarkable except as noted in HPI and below Constitutional Constitutional: Reports as per HPI, Denies chills and Denies fever(s) Eyes Eyes: Denies blurry vision ENT Ears, Nose, Mouth, and Throat: Denies dizziness, Denies sore throat and Denies throat swelling Cardiovascular Cardiovascular: Denies chest pain and Denies dyspnea Respiratory Respiratory: Denies cough and Denies dyspnea Gastrointestinal Gastrointestinal: Denies abdominal pain, Denies diarrhea and Denies vomiting Genitourinary Genitourinary: Denies hematuria and Denies dysuria Musculoskeletal Musculoskeletal: Denies back pain and Denies numbness Integumentary/Breasts Skin/Breast: Denies lesions and Denies rash Neurologic Neurologic: Denies dizziness, Denies localized weakness and Denies numbness Allergic/Immunologic Allergic/Immunologic: Denies throat swelling PFS Medical History (Updated 06/07/20 @ 14:35 by Alexa Lala DO) Hypothyroidism Polymyalgia rheumatica Surgical History (Updated 06/07/20 @ 11:17 by Alexa Lala DO) H/O total cystectomy vaginal cystectomy Social History Smoking/Tobacco Use Status: Former Tobacco Use Smoking risk assessment performed?: Yes Alcohol Intake: current Alcohol Intake frequency: 0-2 drinks per day Alcohol type: wine Drug use: Never Substance use type: does not use Exam Const General: cooperative and no acute distress Orientation: alert, awake and oriented x3 HENMT Head: normal to inspection Face and sinus: normal facial exam Eyes General: appearance normal, both eyes and all related structures Conjunctivae: conjunctival abnormality bilaterally conjunctival icterus Pupils: PERRL EOM: EOM intact bilaterally Neck Neck: normal visual inspection and No submandibular swelling Lymphatic: no lymphadenopathy noted Chest Chest: normal inspection of the chest and no tenderness Resp Effort & Inspection: normal respiratory effort and able to speak in complete sentences Auscultation: clear to auscultation bilaterally Cardio Rate: regular rate Rhythm: regular rhythm GI Inspection: normal to inspection Palpation: soft, not firm, not rigid and nontender Auscultation: normal bowel sounds Back/Spine/Pelvis Thoracic/Lumbar Spine: thoracic and lumbar spine normal to inspection Pelvis: no pain with anterior-posterior compression Skin General skin exam: no rashes or lesions noted and jaundice Neuro General: patient alert, patient awake and patient oriented x3 Cognition: normal cognition Speech: speech normal Motor: muscle tone normal throughout Sensory Exam: no sensory deficits noted Extrem General: normal to inspection, full ROM, capillary refill normal, no calf tenderness bilaterally and no edema Psych Appearance: grossly normal Mental Status: mental status grossly normal Speech and Movement: speech and movement normal Affect: normal affect
[2020-06-07 10:42] LABS: Abs Immature Grans 0.05 10^3/uL (0.0-0.06); Absolute Basophil Count 0.07 10^3/uL (0.0-0.2); Absolute Eosinophil Count 0.16 10^3/uL (0.0-0.7); Absolute Lymphocyte Count 2.16 10^3/uL (1.2-3.4); Absolute Monocyte Count 0.61 10^3/uL (0.1-0.8); Absolute Neutrophil Count 4.44 10^3/uL (1.2-6.7); Basophils % 0.9; Eosinophils % 2.1; HCT 38.8 % (36.0-46.0); HGB 13.2 g/dL (11.2-15.7); Immature Grans % 0.7; Lymphocytes % 28.8; MCH 30.8 pg (27.0-33.0); MCV 90.4 fL (80-95); MPV 10.4 fL (8.0-11.0); Monocytes % 8.1; Neutrophils % 59.4; Nucleated RBC 0 %; Platelet Count 364 10^3/uL (130-400); RBC 4.29 10^6/uL (3.93-5.22); RDW 14.6 % (11.7-14.6); RDW-SD 48.9 fL; WBC 7.49 10^3/uL (4.4-10.8)
[2020-06-07 10:56] LABS: PTT Activated 24.3 sec (21.0-27.5); Prothrombin Time 9.8 sec (9.3-11.0)
--- NOTE | 2020-06-07 11:00 | DI.CT_ITS ---
EXAM: CT CHEST/ABD/PEL W CLINICAL HISTORY: epigastric/chest pain, r/o gallstones TECHNIQUE: CT examination of the chest, abdomen, and pelvis was performed utilizing intravenous inf usion of 100 cc of Omnipaque 350. COMPARISON: No exams were available for comparison FINDINGS: Lungs are predominantly clear. However, there is a 14 millimeter in diameter smooth walled rounded m ass seen in left lower lobe lying adjacent to segmental vessels. This measures 80 Hounsfield units m micki attenuation. Differential diagnosis would include neoplastic process including primary or neopla stic disease. Benign infectious or inflammatory process not excluded, benign tumor such as pulmonary hamartoma not excluded, aneurysm not excluded. No additional intrapulmonary lesion identified. No pleural effusion. No pleural based mass. No mediastinal or hilar adenopathy. No axillary or supraclavicular adenopathy. Tracheobronchial tamiko e appears intact. No evidence of pulmonary embolic disease. Unremarkable appearance of thoracic aorta and major branch vessels. No focal hepatic lesion identified. There is moderate intra and extrahepatic biliary dilatation. The ducts appear dilated to the level of the head of the pancreas. There is a 2.5 cm in diameter poo rly defined heterogeneous low-attenuation mass with some nodular excrescences of the uncinate process of the pancreas, this is likely to be the cause of the biliary obstruction. The most distal portion of the common bile duct appears nondilated. The findings are highly suggestive of pancreatic neoplasm. Adrenals appear normal. Kidneys are unremarkable in appearance with no renal mass, hydronephrosis, or nephrolithiasis. Abdominal aorta and major visceral branches appear intact. No focal bowel pathology. Appendix is normal. No evidence of diverticulitis. No abdominal or pelvic adenopathy. There is an 8 millimeter in diameter pericaval node seen just abo ve level of the uncinate process pancreatic mass, nonspecific. No significant abdominal wall hernia. No focal bony lesion identified on scanning of the chest, abdomen, and pelvis. IMPRESSION: 2.5 cm in diameter uncinate process pancreatic mass, suspicious for carcinoma, causing obstruction of the common bile duct. No gross associated regional or remote lymphadenopathy, an 8 millimeter peric aval node is noted which could conceivably represent metastatic lesion.. 14 millimeter in diameter smooth, well-circumscribed heterogeneous left lower lobe lung mass, indeter minate. Metastatic versus primary carcinoma versus other benign etiologies. Correlation with PET CT suggested. RADIATION DOSE DELIVERED: 1,349.64mGy.cm Total DLP 1,349.64mGy.cm Total DLP
--- NOTE | 2020-06-07 11:00 | DI.US_ITS ---
EXAM: US ABDOMEN LIMITED INDICATION: epigastric pain, r/o cholecystitis COMPARISON: US US ABDOMEN from 05/11/2019 TECHNIQUE: Ultrasound abdomen performed using standard protocol FINDINGS: Abdominal ultrasound was performed according to the usual protocol. The liver is normal in size and shape. No focal hepatic lesion seen. There is no evidence of cholelithiasis.. No gallbladder wall thickening or pericholecystic fluid col lection. Note is made of gallbladder sludge and mild gallbladder distention, these are nonspecific f indings. There is moderate dilatation common bile duct at about 12 millimeters. Pancreas appears intact as visualized, abdominal CT today showed findings suggesting mass of the unci michael process of pancreas which is not appreciated ultrasonographically. Spleen is unremarkable in appearance with no focal lesion. Kidneys are normal in size and shape. No renal mass, hydronephrosis, or nephrolithiasis. Abdominal aorta and IVC are of normal diameter. IMPRESSION: Gallbladder distension and sludge, no evidence of cholelithiasis. Dilatation of the common hepatic duct is noted, obstruction is likely at the level of the head of the pancreas.
[2020-06-07 11:05] LABS: ALT 262 U/L (14-59); AST 191 U/L (15-37); Albumin 3.4 g/dL (3.4-5.0); Alkaline Phosphatase 1503 U/L (46-116); Anion Gap 8.5 mmol/L (3-11); BUN 16 mg/dL (7-18); Bilirubin, Total 4.1 mg/dL (0.2-1.0); CO2 27.5 mmol/L (21.0-32.0); CREATININE 0.64 mg/dL (0.55-1.02); Calcium 9.5 mg/dL (8.5-10.1); Chloride 98 mmol/L (98-107); Glucose 104 mg/dL (74-106); Lipase 89 U/L (73-393); Potassium 3.6 mmol/L (3.5-5.1); Sodium 134 mmol/L (136-145); Total Protein 7.8 g/dL (6.4-8.2); Troponin I < 0.05 ng/mL (<0.06)
[2020-06-07] MEDS: Ondansetron 4 MG/2 ML VIAL IVP ×2 (11:18→22:23)
[2020-06-07 11:45] LABS: Bilirubin, Direct 3.59 mg/dL (0.00-0.20)
[2020-06-07] MEDS: Omnipaque 350 MG/ML 100 ML BTL IJ (11:51)
[2020-06-07] MEDS: Normal Saline - Diluent 50 ML VIAL IV (11:52)
[2020-06-07 11:56] LABS: TSH (W/Ref FT4) 0.58 uIU/mL (0.36-3.74)
[2020-06-07] MEDS: FAMOTIDINE 20 MG/50 ML BAG 200 MG IVPB (12:08)
[2020-06-07] MEDS: Normal Saline 1,000 ML 1000 ML IV (12:08)
--- NOTE | 2020-06-07 13:15 | RT.EKG_ITS ---
APPROVED REPORT Exam: Resting ECG Patient Location: E HR:63 bpm ECG Measurements Heart Rate 63 AXIS AK 171 P 61 QRSd 92 QRS 33 QT 410 T 26 QTc 422 Conclusion Sinus rhythm...normal P axis, V-rate 60- 99 Probable left atrial enlargement...P >50mS, <-0.10mV V1
[2020-06-07 14:03] LABS: Troponin I < 0.05 ng/mL (<0.06)
[2020-06-07] MEDS: Normal Saline 1,000 ML 75 ML IV (16:05)
[2020-06-07] MEDS: Normal Saline Flush 10 ML SYR IVP ×2 (16:06→22:23)
--- NOTE | 2020-06-07 16:08 | HPE_ITS ---
Date of service: 06/07/20 Time of Service: 16:08 Assessment and Plan Assessment and plan (1) Abnormal ECG: Status: Acute Assessment and plan: Complete her serial troponin measurements. If negative obtain gated exercise treadmill stress ECG with myocardial perfusion imaging. If this is negative we will plan to discharge her with near-term follow-up with GI at [facility] for an ERCP. Patient will also need a PET CT scan to evaluate the left lower lobe lung nodule (2) Pancreatic mass: Status: Acute Assessment and plan: Suspicious for pancreatic cancer causing biliary ductal obstruction. Present time her nausea seems to be controlled. We will continue with IV fluid hydration overnight but if she is eating adequately and her stress test is negative I will plan for discharge home tomorrow with close follow-up with GI services at [facility] for an ERCP as well as a metastatic work-up. (3) Mass of left lung: Status: Acute Assessment and plan: As above History of Present Illness History of Present Illness Chief Complaint: epigastric pain Narrative: 79-year-old female with a history of polymyalgia rheumatica chronically on prednisone, history of depression, history of overactive bladder who presents emergency department with epigastric burning pain with radiation to substernal area with nausea and waterbrash. Patient states that her symptoms began in late March when she was in [facility] taking care of her sister who from gastric cancer. Since that time the patient's had a 15 pound weight loss. Her GI symptoms have been improved initially with antaci ds and Nexium but is gotten more frequent and has been taking more antacids to relieve her symptoms. She denies exertional chest discomfort or exertional dyspnea. She try to get into see her PCP today but could not get an appointment and was referred to the emergency department. Work-up by Dr. Lala included a CT scan of her chest abdomen and pelvis as well as an abdominal ultrasound and routine labs and EKGs. CT scan of the abdomen showed a pancreatic mass measuring 2.5 cm at the head of the pancreas causing obstruction of her common bile duct. CT scan of the lungs demonstrated a 1.4 cm left lower lobe nodule which could not be definitively characterized as to whether or not this was a primary versus a metastatic carcinoma versus a benign process. It was smooth and well-circumscribed but heterogeneous. No focal bony lesions were identified in the chest abdomen and pelvis. She did have an 8 mm pericaval lymph node in the abdomen. Labs were consistent with a biliary obstructive process with an elevated total bilirubin of 4.1 and conjugated bilirubin of 3.59 with an AST of 191, ALT 262, alkaline phosphatase 1503. EKGs were obtained and demonstrated nonspecific ST depression diffusely seen throughout the limb leads and precordial leads measuring 0.5mm to 1 mm. Serial ECGs were obtained and there were no dynamic changes. Serial troponin levels x2 sets were normal. Patient came into the emergency room because she could not get into see her PCP and she thought that she probably had either a peptic ulcer or a bad gallbladder. She was shocked to find out that she has a pancreatic mass. Dr. Lala spoke with [facility] and discussed her case both with GI service and cardiology. Because of her abnormal EKG it was recommended that she be ho spitalized overnight for serial troponin levels and if they are negative to get a stress test. The GI service at [facility] did not feel that she needed urgent transfer for an ERCP but recommended that if her stress test is negative she can be done as an outpatient. In addition to the 15 pound weight loss over the past 2-1/2 months she has noticed over the past couple weeks that her stools been a certified technician color although not karen colored. Review of Systems Constitutional Constitutional: Reports weight loss (15 pounds over the past 2 and half months) Cardiovascular Cardiovascular: Denies chest pain with activity, Denies radiating jaw, neck or arm pain, Denies dyspnea and Denies dyspnea on exertion Respiratory Respiratory: Denies cough, Denies dyspnea and Denies dyspnea on exertion Gastrointestinal Gastrointestinal: Reports as per HPI and Reports change in stool character PFSH Medical History (Updated 06/07/20 @ 17:09 by Doug Paz) Hypothyroidism Polymyalgia rheumatica Surgical History (Updated 06/07/20 @ 17:09 by Doug Paz) H/O total cystectomy vaginal cystectomy History of benign breast biopsy Family History (Updated 06/07/20 @ 17:10 by Doug Paz) Sister Gastric cancer Niece Breast cancer Social History Smoking/Tobacco Use Status: Former Tobacco Use Smoking risk assessment performed?: Yes Alcohol Intake: current Alcohol Intake frequency: 0-2 drinks per day Alcohol type: wine Drug use: Never Substance use type: does not use Meds Home Medications and Allergies Home Medications Medication Instructions Recorded Confirmed Type aspirin [Aspir 81] 81 mg PO QAM 07/16/15 06/07/20 History estradiol [Estrace] 1 ea VG .2X A WEEK 07/16/15 06/07/20 History hydroxyzine HCl 10 mg PO PRN PRN 07/16/15 06/07/20 History triamcinolone acetonide 1 ea TOPICAL PRN PRN 07/16/15 06/07/20 History ascorbic [id number] 1 ea PO DAILY 08/03/16 06/07/20 History [Emergen-C 1,000 mg Packet] calcium carbonate-vitamin D3 1 ea PO DAILY 08/03/16 06/07/20 History [Calcium 500 + Vit D 400 Tablet] coenzyme Q10 [Co Q-10] 50 mg PO DAILY 08/03/16 06/07/20 History diphenhydramine HCl [Nighttime 25 mg PO PRN PRN 08/03/16 06/07/20 History Sleep Aid] diphenhydramine-acetaminophen 1 ea PO HS PRN PRN 08/03/16 06/07/20 History [Tylenol Pm Ex-Strength Caplet] iron 18 mg PO DAILY 08/03/16 06/07/20 History levothyroxine [Levoxyl] 112 mcg PO DAILY 08/03/16 06/07/20 History magnesium 1 tab PO DAILY 08/03/16 06/07/20 History red yeast rice 600 mg PO BID 08/03/16 06/07/20 History sulfamethoxazole-trimethoprim 1 ea PO BID PRN 08/03/16 06/07/20 History vitamin B complex [B Complex] 1 ea PO DAILY 08/03/16 06/07/20 History fluoxetine 20 mg capsule 20 mg PO DAILY 08/18/19 06/07/20 History prednisone 1 mg tablet 1 mg PO DAILY 08/18/19 06/07/20 History mirabegron 25 mg tablet,extended 25 mg PO DAILY #90 tab 09/25/19 06/07/20 Rx release 24 hr tolterodine 4 mg capsule,extended 4 mg PO DAILY #90 cap 04/20/20 06/07/20 Rx release 24 hr Allergies Allergy/AdvReac Type Severity Reaction Status Date / Time duloxetine HCl AdvReac Unknown Unverified 06/07/20 10:35 [From Kalin] black flies AdvReac Severe hives Uncoded 06/07/20 10:35 wood smoke AdvReac Severe hives Uncoded 06/07/20 10:35 Exam Narrative Exam Narrative: Elderly female who is sitting up in her chair alert and oriented person place time circumstance. HEENT is remarkable for slight scleral icterus Neck is supple nontender no JVD normal carotid pulses no bruits no cervical lymphadenopathy Lungs are clear to auscultation Heart regular rate and rhythm Abdomen soft nondistended normal bowel sounds no palpable masses no organomegaly. Extremities without peripheral cyanosis or edema Neuro exam is grossly intact nonfocal Genitalia rectal exam and breast exam deferred Results Labs Result diagrams: 06/07/20 10:35 06/07/20 10:35 Labs: Laboratory Results - last 24 hr 06/07/20 06/07/20 06/07/20 10:35 10:35 10:35 WBC 7.49 RBC 4.29 Hgb 13.2 Hct 38.8 MCV 90.4 MCH 30.8 MCHC 34.0 RDW 14.6 Plt Count 364 MPV 10.4 Immature Gran % 0.7 Neutrophils % 59.4 Lymphocytes % 28.8 Monocytes % 8.1 Eosinophils % 2.1 Basophils % 0.9 Nucleated RBC % 0 Absolute Neutrophils 4.44 Absolute Lymphocytes 2.16 Absolute Monocytes 0.61 Absolute Eosinophils 0.16 Absolute Basophils 0.07 PT 9.8 INR 1.0 APTT 24.3 Sodium 134 L Potassium 3.6 Chloride 98 Carbon Dioxide 27.5 Anion Gap 8.5 BUN 16 Creatinine 0.64 Estimated GFR/1.73 m2 >= 60.00 Glucose 104 Calcium 9.5 Magnesium 2.0 Total Bilirubin 4.1 H Conjugated Bilirubin AST 191 H ALT 262 H Alkaline Phosphatase 1503 H Troponin I < 0.05 Total Protein 7.8 Albumin 3.4 Lipase 89 TSH 06/07/20 06/07/20 06/07/20 10:35 10:35 13:35 WBC RBC Hgb Hct MCV MCH MCHC RDW Plt Count MPV Immature Gran % Neutrophils % Lymphocytes % Monocytes % Eosinophils % Basophils % Nucleated RBC % Absolute Neutrophils Absolute Lymphocytes Absolute Monocytes Absolute Eosinophils Absolute Basophils PT INR APTT Sodium Potassium Chloride Carbon Dioxide Anion Gap BUN Creatinine Estimated GFR/1.73 m2 Glucose Calcium Magnesium Total Bilirubin Conjugated Bilirubin 3.59 H AST ALT Alkaline Phosphatase Troponin I < 0.05 Total Protein Albumin Lipase TSH 0.58 Last Vital Signs Temp 36.5 C 06/07/20 15:40 Pulse 72 06/07/20 15:40 Resp 14 06/07/20 15:40 BP 158/91 H 06/07/20 15:40 Pulse Ox 98 06/07/20 15:40 COVID-19 Screening Have you, or household traveled for leisure in last 14 days?: No Had IN PERSON contact w/suspected or confirmed C-19 person: No
[2020-06-07] MEDS: Enoxaparin 40 MG/0.4 ML SYR SC (17:03)
[2020-06-07 17:24] LABS: Troponin I < 0.05 ng/mL (<0.06)
[2020-06-07] MEDS: Acetaminophen 325 MG TAB PO (22:22)
[2020-06-08 01:26] LABS: COVID-19 RT-PCR UVMMC Result Negative (Negative)
[2020-06-08 03:16] VITALS: BP 176/80; PULSE 65; RESP 17; TEMP 36.6; O2SAT 96
[2020-06-08] MEDS: Levothyroxine 112 MCG TAB PO (05:45)
[2020-06-08] MEDS: Ondansetron 4 MG/2 ML VIAL IVP ×3 (05:45→14:35)
[2020-06-08] MEDS: Normal Saline Flush 10 ML SYR IVP ×4 (05:45→14:36)
[2020-06-08] MEDS: Normal Saline 1,000 ML 75 ML IV (05:47)
[2020-06-08 07:49] VITALS: BP 153/72; PULSE 69; RESP 17; TEMP 36.9; O2SAT 97
[2020-06-08 07:53] VITALS: PULSE 65
[2020-06-08] MEDS: FLUoxetine 20 MG CAP PO (08:06)
[2020-06-08] MEDS: Famotidine 20 MG TAB PO (08:06)
[2020-06-08] MEDS: predniSONE 1 MG TAB PO (08:06)
[2020-06-08] MEDS: Aspirin E.C. 81 MG TABEC PO (08:06)
[2020-06-08] MEDS: Mirabegron 25 MG TABCR PO (08:06)
[2020-06-08] MEDS: Vitamins B Comp w/C TAB 1 TAB PO (08:06)
[2020-06-08] MEDS: Magnesium Oxide 400 MG TAB 200 MG PO (10:17)
--- NOTE | 2020-06-08 11:03 | W.PM.PROGNOT ---
Date of Service Date of service: 06/08/20 Time of Service: 11:04 Assessment and Plan Assessment and plan (1) Abnormal ECG: Status: Acute Assessment and plan: Serial troponin I levels were all negative. Stress MPI cannot be performed today and will be scheduled for tomorrow morning as an outpatient. (2) Pancreatic mass: Status: Acute Assessment and plan: 2.5 cm mass at the uncinate process of the pancreas causing biliary ductal obstruction. There is also a 14 mm left lower lobe lung nodule suspicious for metastatic lesion. Patient needs outpatient PET/CT study to evaluate the lung nodule for metastatic disease. Patient needs an urgent ERCP for diagnosis of her pancreatic mass as well as stenting of her common bile duct. All relevant studies have been sent to Dr. Peoples's office at [facility] gastroenterology department. (3) Mass of left lung: Status: Acute Assessment and plan: As above Subjective Subjective Patient reports: no new complaints Interval history since last seen: Patient's had some nausea this morning requiring Zofran but denies any abdominal pain and no chest pain. Troponin levels were all negative. She was post to have a gated exercise treadmill stress MPI study today however the specialty clinic did not coordinate with radiology or stress test nurse and although we have a sandblast or shotblast equipment tender in-house today because of a lack of communication no stress testing will be performed today. I advised the patient that she will be put on the schedule for tomorrow morning but there is no need for further hospitalization. She can be discharged home today with her prescription for Zofran to be used as needed for nausea. I did let the patient know that I spoke with Dr. Alex Peoples's office in the gastroenterology department at [facility] and explained her situation with her pancreatic mass causing biliary ductal obstruction. And inform them that all relevant films were sent to [facility] radiology department. They gave me their fax number [phone] I requested that the relevant reports and H&P be faxed to them with a cover letter requesting a stat consult. Dr. Peoples will be reviewing her studies and they will be calling us back with an urgent outpatient appointment for an ERCP. Objective Last Vital Signs Temp 36.9 C 06/08/20 07:49 Pulse 65 06/08/20 07:53 Resp 17 06/08/20 07:49 BP 153/72 H 06/08/20 07:49 Pulse Ox 97 06/08/20 07:49 Laboratory Results - last 24 hr 06/07/20 06/07/20 06/07/20 10:35 10:35 10:35 WBC 7.49 Hgb 13.2 Hct 38.8 MCV 90.4 Plt Count 364 PT 9.8 INR 1.0 APTT 24.3 Sodium 134 L Potassium 3.6 Chloride 98 Carbon Dioxide 27.5 Anion Gap 8.5 BUN 16 Creatinine 0.64 Estimated GFR/1.73 m2 >= 60.00 Glucose 104 Calcium 9.5 Magnesium 2.0 Total Bilirubin 4.1 H Conjugated Bilirubin AST 191 H ALT 262 H Alkaline Phosphatase 1503 H Troponin I < 0.05 Total Protein 7.8 Albumin 3.4 Lipase 89 TSH COVID-19 PCR Nasopharyn COVID-19 PCR Ref Test Perform Site 06/07/20 06/07/20 06/07/20 10:35 10:35 13:35 WBC Hgb Hct MCV Plt Count PT INR APTT Sodium Potassium Chloride Carbon Dioxide Anion Gap BUN Creatinine Estimated GFR/1.73 m2 Glucose Calcium Magnesium Total Bilirubin Conjugated Bilirubin 3.59 H AST ALT Alkaline Phosphatase Troponin I < 0.05 Total Protein Albumin Lipase TSH 0.58 COVID-19 PCR Nasopharyn COVID-19 PCR Ref Test Perform Site 06/07/20 06/07/20 14:45 16:37 WBC Hgb Hct MCV Plt Count PT INR APTT Sodium Potassium Chloride Carbon Dioxide Anion Gap BUN Creatinine Estimated GFR/1.73 m2 Glucose Calcium Magnesium Total Bilirubin Conjugated Bilirubin AST ALT Alkaline Phosphatase Troponin I < 0.05 Total Protein Albumin Lipase TSH COVID-19 PCR Negative Nasopharyn COVID-19 PCR Not Applicable Ref Test Perform Site [facility] lab
[2020-06-08 11:34] VITALS: BP 121/74; PULSE 63; RESP 17; TEMP 37.2; O2SAT 97
[2020-06-08 11:52] LABS: CA 19-9 1087 U/mL (<35)
--- NOTE | 2020-06-08 13:10 | NUR.NOTE ---
Nursing Note: 06/08/2020 13:10 Patient's daughter Nena Andino called requesting some information about her mother. Nena is on patient's hipaa so nurse answered all questions that were asked by her, including about radiology's reporting on size of masses seen on imaging and Dr. Paz's progress note from today 06/08. Nena's number, , was requested to be used to reach her with any updates.
--- NOTE | 2020-06-08 14:12 | W.PM.DS.N ---
Date of service: 06/08/20 Time of Service: 14:12 DS: Diagnosis Discharge Diagnosis (1) Abnormal ECG: Status: Acute (2) Pancreatic mass: Status: Acute (3) Mass of left lung: Status: Acute Discharge Plan Disposition Patient Disposition: HOME Condition: Improving Discharge Details Reason For Visit: ABNORMAL EKG, PANCREATIC MASS, LEFT LUNG MASS Admit Date/Time: 06/07/20 14:29 Admit Provider: Doug Paz Attending Provider: Doug Paz Primary Care Provider: Aissatou Grayson [facility] Course Hospital Course: See my admission H&P from 06/07/2020 for details. In summary this 79-year-old female with a past medical history of polymyalgia rheumatica chronically on prednisone, history depression had presented with worsening epigastric burning pain with radiation to the substernal area with nausea and waterbrash. Symptoms have been present for the last 2-1/2 to 3 months. Initially symptoms have been able to be controlled with Nexium and an acids but is gotten progressively worse over the last couple weeks. When she could not get into see her PCP she was advised to go to the emergency department where work-up included a CT scan of her chest abdomen pelvis which demonstrated 2.5 cm mass at the uncinate process of the pancreas causing biliary ductal obstruction. CT scanning lungs demonstrate a 1.4 cm left lower lobe nodule. Patient's labs were consistent with a biliary obstructive process with elevated total bilirubin of 4.1 with a conjugated bilirubin 3.59 along with an alkaline phosphatase of 1503. Admission EKG showed nonspecific diffuse ST depression. Serial troponin I levels came back within normal limits x3 sets. She was admitted overnight for cardiac monitoring to rule out ACS. She was supposed to have a gated exercise treadmill stress test the next morning with myocardial perfusion imaging however due to a miscommunication between the purification supervisor office and the radiology department the test did not get performed. However her stress test has been rescheduled for tomorrow morning at 11:45 AM. Patient's nausea was controlled with Zofran. She was given IV fluid hydration overnight. She is tolerating a diet and will be discharged home with her follow-up stress test for tomorrow morning June 09, 2020 at 11:45 AM. Furthermore I made phone calls to Dr. Alex Peoples's office in the gastroenterology department at [facility] to try to get her in urgently for an ERCP. All of her images including her CT scans as well as her abdominal ultrasound was sent to [facility] radiology department. Her chart was photocopied and faxed to Dr. Peoples's office for his review. Patient has been advised that she will hear from Dr. Peoples's office in the next 24 to 48 hours after he is reviewed her studies. Patient has been given his office number [phone] to call for follow-up if she does not hear from his office in the next 24 to 48 hours. Patient is advised to avoid use of any NSAIDs or aspirin as this may complicate any procedure she has.. Home Meds and New Rx's Prescriptions: New ondansetron HCl [Zofran] 4 mg tablet 4 mg PO Q6H PRNQty: 30 RF: 0 Continued fluoxetine 20 mg capsule 20 mg PO DAILY RF: 0 prednisone 1 mg tablet 1 mg PO DAILY RF: 0 Myrbetriq 25 mg tablet extended release 24 hr 25 mg PO DAILY Qty: 90 RF: 4 Hold Instructions: Home Medication placed on hold at Doctor's office tolterodine 4 mg capsule,extended release 24hr 4 mg PO DAILY Qty: 90 RF: 1 aspirin [Aspir-81] 81 MG tablet,delayed release (DR/EC) 81 mg PO QAM RF: 0 triamcinolone acetonide 5 GM paste 1 ea Topical PRN PRNRF: 0 estradiol [Estrace] 42.5 GM cream 1 ea VG .2X A WEEK RF: 0 hydroxyzine HCl 10 MG tablet 10 mg PO PRN PRNRF: 0 diphenhydramine HCl [NightTime Sleep Aid (diphen)] 25 MG tablet 25 mg PO PRN PRNRF: 0 diphenhydramine-acetaminophen [Tylenol PM Extra Strength] 1 EACH tablet 1 ea PO HS PRN PRNRF: 0 levothyroxine [Levoxyl] 112 MCG tablet 112 mcg PO DAILY RF: 0 sulfamethoxazole-trimethoprim 1 TAB tablet 1 ea PO BID PRNRF: 0 vitamin B complex [B-Complex] 1 EACH tablet 1 ea PO DAILY RF: 0 magnesium 250 MG tablet 1 tab PO DAILY RF: 0 coenzyme Q10 [Co Q-10] 30 MG capsule 50 mg PO DAILY RF: 0 iron 18 MG tablet 18 mg PO DAILY RF: 0 red yeast rice 600 MG capsule 600 mg PO BID RF: 0 calcium carbonate-vitamin D3 [Calcium 500 With D] 1 EACH tablet 1 ea PO DAILY RF: 0 Emergen-C 1,000 MG powder effervescent in packet 1 ea PO DAILY RF: 0 Discharge Instructions Instructions: Chest Pain (DC) Stand Alone Forms: Nursing Discharge Form Referrals: Alex Peoples [ [facility] STAFF PHYSICIAN] - (you should hear from Dr. Peoples's office in the next 24 to 48 hr regarding an appointment for your ERCP; if you do not hear from them please call the office) Aissatou Grayson MD [Primary Care Provider] - 06/15/20 10:30 am Activity:: Activity as Tolerated Equipment/Supplies:: No Equipment Needed Diet:: As Tolerated Discharge Orders Discharge Orders: Discharge Order (Routine); Ordered 06/08/20 Ordered By: Doug Paz Other Ambulatory Orders: NM MPI rest & stress grp (Routine) Timeframe: 1 Day Facility: [facility] - Location: DIAGNOSTIC IMAGING DEPT Ordered By: Doug Paz DS: Summary Status at Discharge Functional status at discharge: independent ambulation Overall status at discharge: patient is not back to baseline Mental Status: mental status grossly normal Speech and Movement: speech and movement normal Mood: congruent mood Affect: normal affect Time Spent with Patient providing and/or coordinating discharge services: Greater than 30 minutes Exam Psych Mental Status: mental status grossly normal Speech and Movement: speech and movement normal Mood: congruent mood Affect: normal affect DS: Data Vitals/I&O Vitals and I&O: Vital Signs Temperature 37.2 C 06/08/20 11:34 Temperature Source Tympanic 06/08/20 11:34 Pulse 63 06/08/20 11:34 Pulse Rhythm Regular 06/08/20 07:55 Pulse 71 06/07/20 15:20 Respiratory Rate 17 06/08/20 11:34 Respiratory Effort Non-Labored 06/08/20 07:55 Respiratory Depth Normal 06/08/20 07:55 Respiratory Pattern Normal 06/08/20 07:55 Blood Pressure 121/74 06/08/20 11:34 Blood Pressure Mean 109 06/07/20 14:46 Blood Pressure Position Supine 06/07/20 10:23 Pulse Oximetry 97 06/08/20 11:34 Oxygen Delivery Method Room Air 06/08/20 11:34 Oxygen Flow Rate 0 06/08/20 11:34 Pain Level 2 06/08/20 11:34 Intake & Output 06/07/20 06/08/20 06/08/20 23:59 11:59 23:59 Intake Total 1390 / 1390 2290 / 2530 240 / 2530 Balance 1390 / 1390 2290 / 2530 240 / 2530 Weight 75.2 kg Intake: IV 1050 / 1050 990 / 990 Oral 340 / 340 1300 / 1540 240 / 1540 Other: Urine Color Yellow Urine Appearance Clear Voiding Methods Toilet Toilet Data Completed and Pending Labs on day of discharge: Labs from last 24 hours 06/07/20 06/07/20 06/07/20 16:37 14:45 10:35 WBC Hgb Hct MCV Plt Count Sodium Potassium BUN Creatinine Glucose Troponin I < 0.05 CA 19-9 Antigen 1087 H COVID-19 PCR Negative Nasopharyn COVID-19 PCR Not Applicable Ref Test Perform Site [facility] 06/07/20 06/07/20 10:35 10:35 WBC 7.49 Hgb 13.2 Hct 38.8 MCV 90.4 Plt Count 364 Sodium 134 L Potassium 3.6 BUN 16 Creatinine 0.64 Glucose 104 Troponin I CA 19-9 Antigen COVID-19 PCR Nasopharyn COVID-19 PCR Ref Test Perform Site [facility] Medical History (Updated 06/07/20 @ 17:09 by Doug Paz) Hypothyroidism Polymyalgia rheumatica Surgical History (Updated 06/07/20 @ 17:09 by Doug Paz) H/O total cystectomy vaginal cystectomy History of benign breast biopsy Family History (Updated 06/07/20 @ 17:10 by Doug Paz) Sister Gastric cancer Niece Breast cancer Social History Smoking/Tobacco Use Status: Former Tobacco Use Smoking risk assessment performed?: Yes Alcohol Intake: current Alcohol Intake frequency: 0-2 drinks per day Alcohol type: wine Drug use: Never Substance use type: does not use
[2020-06-08 15:00] VITALS: PULSE 63
--- NOTE | 2020-06-08 15:11 | CMPROGNOTE_ITS ---
- If Service Date Differs Date of service: 06/08/20 Time of Service: 15:11 Care Management Progress Note S/O: Gale was sitting up in a chair when CM met with her. She shared that she is really concerned about the mass on her pancreas and the fact that she may have cancer. She stated that her sister recently from stomach cancer and she is still struggling with that. Gale will be discharged later this afternoon and return to her home in [place] where she and her live in a single family home. They have 2 daughters who are both nurses and provide a great deal of support to their parents. Gale's will transport her via private vehicle. Gale will return to [facility] tomorrow for an outpatient stress test and follow up with gastroenterology at [facility] for the pancreatic mass. A: Gale was admitted on 06/07/20 with an abnormal EKG andf new pancreatic and lung masses. P: Gale will be discharaged home later today. She will return for an outpatient stress test tomorrow and complete a workup in the near future at [facility] for the newly diagnosed masses in her pancreas and lung. She will transport with her .
== END 2020-06-08 15:27 | disposition home or self-care (01) ==
LOC: ER 14:35 → MS 15:44
PROVIDERS: Admitting Provider Internal Medicine; Emergency Provider Physician Assistant; PCP Family Medicine; Visit Provider Internal Medicine
DX: R94.31 Abnormal electrocardiogram [ECG] [EKG] (principal); R10.13 Epigastric pain; K86.89 Other specified diseases of pancreas; M35.3 Polymyalgia rheumatica; Z79.52 Long term (current) use of systemic steroids; R91.1 Solitary pulmonary nodule; E03.9 Hypothyroidism, unspecified
CPT/HCPCS: 74177; 80053; 83690; 93005; 96361; 96365; 96375; 99220; 99225; 99239; 99285; J1650; U0003; 71260; 76705; 82248; 83735; 84443; 84484; 85025; 85610; 85730; 86301; 93010; 99217; G0378; J2405; J3490

== ENCOUNTER 2020-06-09 02:53 | Outpatient (CLI) | payer MEDICARE, SELFPAY ==
--- NOTE | 2020-06-09 11:45 | DI.NM_ITS ---
APPROVED REPORT Exam: Exercise Treadmill Patient Location: Out-Patient Room/Bed: Stress Nurse: Emily Bhagat RN BMI: 26.14 Baseline Rhythm: Sinus Rhythm Indications: Atypical chest pain, abnormal ECG. Medical History Medical History: Hypothyroidism, Polymyalgia rheumatica Cardiac Medications: Aspirin, CoQ10, Magnesium, Prednisone. , Allergies: Duloxetine. Cardiac Risk Factors: Hyperlipidemia, Smoking (former) Previous Cardiac Procedures: None. Pretest Chest Pain Characteristics: None. Exercise History: Sedentary Physical Disabilities: None. Lung Sounds: Clear to auscultation Heart Sounds: Regular Stress Test Details Test: Exercise stress testing was performed using a modified Francis protocol. Nuclear Acquisition: Rest Tc-99m/Stress Tc-99m 1 day Rest Isotope: Tc-99m Sestamibi. Dose: 12.1 Date: 06/09/2020 Injection Time: 1210 Stress Isotope: Tc-99m Sestamibi. Dose: 38.1 Date: 06/09/2020 Injection Time: 1425 HR Resting HR Supine: 61 bpm Max Heart Rate (APMHR): 143 bpm Resting HR Standin bpm Target HR (85% APMHR): 121 bpm Max HR Achieved: 148 bpm % of APMHR: 103 Recovery HR: 76 bpm HR response to stress: Normal HR response to stress BP Resting BP Supine: 126/70 mmHg Resting BP Standin/84 mmHg Max BP: 162/70 mmHg Recovery BP: 130//78 mmHg BP response to stress: Normal blood pressure response to stress. ECG Resting ECG: Sinus Rhythm Ectopy: None. Stress ECG: Sinus Tachycardia ST Change: Horizontal ST depression, Upsloping ST depression Lead(s): , aVF, V3, V4, V5 Maximum ST Deviation: 1 mm Arrhythmia: None Recovery ECG: Sinus Rhythm Recovery ST Change: Downsloping ST depression Lead(s): II, III, aVF, V3, V4, V5, V6 Recovery ST Deviation: 2.5 mm Recovery Arrhythmia: PAC's. Patient to ER: following second set of images Reason Why: Patient developed downsloping ST segment depressions that had not resolved 18 min after e xercise. Patient had a brief episode of nausea, but otherwise asymptomatic. Dr. Murphy notified who s uggested patient be brought to ER after MPI complete for further work-up. Report called to ER while s econd set of images being obtained. Clinical Reason for Termination: Fatigue Stress Symptoms: Nausea. Exercise duration: 9 min00 sec Exercise capacity: 8.55 METs Stress ECG Conclusion 1. The patient exercised for 9 minutes (9 METS). Exercise was stopped due to nausea. 2. The patient developed diffuse horizontal ST depressions at close the inferior and lateral leads. These changes lasted until 8 minutes into recovery. Stress Test Summary STAGE Time (mins) Speed (mph) Grade (%) HR BP SYMPTOMS METS Supine 61 126/70 Standing 68 128/74 1 3 1.7 10 90 138/72 4.6 2 6 2.5 12 120 144/76 7 1 min recovery 105 162/70 Nauseous. 3 min recovery 88 150/72 Nausea resolved. 6 min recovery 76 130/78 Francis protocol was modified at 06:40 to enable patient to continue exercising. MPI Conclusion Ejection fraction was 69% with stress. There were no wall motion abnormalities. The imaging portion of this exam did not show any evidence of ischemia. This represents a discordant stress test as the the ECG portion of the exam was grossly abnormal. I discussed the findings of this case case with the referring provider in the emergency room.
== END 2020-06-09 03:13 ==
PROVIDERS: PCP Family Medicine; Visit Provider Internal Medicine
DX: R07.89 Other chest pain (principal); R94.31 Abnormal electrocardiogram [ECG] [EKG]; E78.5 Hyperlipidemia, unspecified; Z87.891 Personal history of nicotine dependence
CPT/HCPCS: 78452; 93016; 93018; 93017

== ENCOUNTER 2020-06-09 15:21 | Emergency (ER) | payer MEDICARE, SELFPAY ==
[2020-06-09] VITALS (38 sets, daily range): BP systolic 109–158; BP diastolic 49–128; PULSE 61–82; RESP 11–27; TEMP 36.8; O2SAT 93–98
--- NOTE | 2020-06-09 15:15 | RT.EKG_ITS ---
APPROVED REPORT Exam: Resting ECG Patient Location: E HR:69 bpm ECG Measurements Heart Rate 69 AXIS MO 166 P 60 QRSd 91 QRS 16 QT 388 T 27 QTc 416 Conclusion Sinus rhythm. Nonspecific repol abnormality, diffuse leads...ST dep, T flat/neg, ant/lat/inf. No signiicant change versus 06/09/20
--- NOTE | 2020-06-09 15:54 | W.ED.GENAD ---
Discharge Plan Disposition Patient Disposition: HOME Condition: Improving Discharge Details Clinical Impression: Pancreatic mass, Abnormal stress test Primary Care Provider: Aissatou Grayson ED Provider: Ladarius Giles Home Meds and New Rx's Prescriptions: Continued fluoxetine 20 mg capsule 20 mg PO DAILY RF: 0 prednisone 1 mg tablet 1 mg PO DAILY RF: 0 Myrbetriq 25 mg tablet extended release 24 hr 25 mg PO DAILY Qty: 90 RF: 4 Hold Instructions: Home Medication placed on hold at Doctor's office tolterodine 4 mg capsule,extended release 24hr 4 mg PO DAILY Qty: 90 RF: 1 aspirin [Aspir-81] 81 MG tablet,delayed release (DR/EC) 81 mg PO QAM RF: 0 triamcinolone acetonide 5 GM paste 1 ea Topical PRN PRNRF: 0 estradiol [Estrace] 42.5 GM cream 1 ea VG .2X A WEEK RF: 0 hydroxyzine HCl 10 MG tablet 10 mg PO PRN PRNRF: 0 diphenhydramine HCl [NightTime Sleep Aid (diphen)] 25 MG tablet 25 mg PO PRN PRNRF: 0 diphenhydramine-acetaminophen [Tylenol PM Extra Strength] 1 EACH tablet 1 ea PO HS PRN PRNRF: 0 levothyroxine [Levoxyl] 112 MCG tablet 112 mcg PO DAILY RF: 0 sulfamethoxazole-trimethoprim 1 TAB tablet 1 ea PO BID PRNRF: 0 vitamin B complex [B-Complex] 1 EACH tablet 1 ea PO DAILY RF: 0 magnesium 250 MG tablet 1 tab PO DAILY RF: 0 coenzyme Q10 [Co Q-10] 30 MG capsule 50 mg PO DAILY RF: 0 iron 18 MG tablet 18 mg PO DAILY RF: 0 red yeast rice 600 MG capsule 600 mg PO BID RF: 0 calcium carbonate-vitamin D3 [Calcium 500 With D] 1 EACH tablet 1 ea PO DAILY RF: 0 Emergen-C 1,000 MG powder effervescent in packet 1 ea PO DAILY RF: 0 ondansetron HCl [Zofran] 4 mg tablet 4 mg PO Q6H PRNQty: 30 RF: 0 Discharge Instructions Additional Instructions: We will ask our care management team to arrange a follow-up for you at [facility] in cardiology as we discussed. Continue your regularly prescribed medications. Return if you develop chest pain, difficulty breathing, or any other acute concerns. Medical Decision Making 79-year-old female who was recently admitted to the hospital for both pancreatic mass and jaundice as well as to rule out pericardial infarction. Patient had unremarkable troponins while an inpatient and was referred for outpatient stress test today. During the stress test towards the end she had ST depressions that did not resolve and reported some nausea. The images show ejection fraction of 69% with no wall motion abnormalities. Imaging did not show any evidence of ischemia. Due to the abnormal ECG findings patient was sent to the ER for further evaluation. Upon arrival to the ED, patient reports no discomfort. Case discussed with Dr. Murphy, who noted persistent ST depressions following the patient's stress test and that these were incongruent with the imaging portion of the exam which did not show any evidence of ischemia and no wall motion abnormalities. Patient placed in a cardiac specialist, screening labs including troponin obtained and patient observed for nearly 4 hours and repeat troponin obtained and is negative. We will have the patient follow-up with [facility] cardiology as she has pending GI intervention planned. She is stable and improved, appropriate for discharge home at this time. I discussed with her indications to seek reevaluation. HPI General Mode of arrival: wheelchair. Date/Time Provider Initiated Documentation: 06/09/20 15:21. Limitations to Documentation: no limitations. Information obtained by: patient and RN notes reviewed. History of Present Illness 79 year old F presents to the emergency department with the chief complaint of Brought from outpatient stress test with nausea, now improved, described as moderate, and is localized to the abdomen. Patient reports no radiation. Patient started experiencing this minute(s) and it has been now resolved. No relieving factors improve symptom(s), No exacerbating factors reported . Patient notes denies chest pain, syncope and weakness. Patient did receive the following treatments prior to arrival, none Related Data Home Medications Medication Instructions Recorded Confirmed aspirin [Aspir-81] 81 mg PO QAM 07/16/15 06/09/20 estradiol [Estrace] 1 ea VG .2X A WEEK 07/16/15 06/09/20 hydroxyzine HCl 10 mg PO PRN PRN 07/16/15 06/09/20 triamcinolone acetonide 1 ea TOPICAL PRN PRN 07/16/15 06/09/20 Emergen-C 1 ea PO DAILY 08/03/16 06/09/20 calcium carbonate-vitamin D3 1 ea PO DAILY 08/03/16 06/09/20 [Calcium 500 With D] coenzyme Q10 [Co Q-10] 50 mg PO DAILY 08/03/16 06/09/20 diphenhydramine HCl [NightTime 25 mg PO PRN PRN 08/03/16 06/09/20 Sleep Aid (diphen)] diphenhydramine-acetaminophen 1 ea PO HS PRN PRN 08/03/16 06/09/20 [Tylenol PM Extra Strength] iron 18 mg PO DAILY 08/03/16 06/09/20 levothyroxine [Levoxyl] 112 mcg PO DAILY 08/03/16 06/09/20 magnesium 1 tab PO DAILY 08/03/16 06/09/20 red yeast rice 600 mg PO BID 08/03/16 06/09/20 sulfamethoxazole-trimethoprim 1 ea PO BID PRN 08/03/16 06/09/20 vitamin B complex [B-Complex] 1 ea PO DAILY 08/03/16 06/09/20 fluoxetine 20 mg capsule 20 mg PO DAILY 08/18/19 06/09/20 prednisone 1 mg tablet 1 mg PO DAILY 08/18/19 06/09/20 mirabegron 25 mg tablet,extended 25 mg PO DAILY #90 tab 09/25/19 06/09/20 release 24 hr tolterodine 4 mg capsule,extended 4 mg PO DAILY #90 cap 04/20/20 06/09/20 release 24 hr ondansetron HCl [Zofran] 4 mg PO Q6H PRN #30 tab 06/08/20 06/09/20 Previous Rx's Medication Instructions Recorded mirabegron 25 mg tablet,extended 25 mg PO DAILY #90 tab 09/25/19 release 24 hr tolterodine 4 mg capsule,extended 4 mg PO DAILY #90 cap 04/20/20 release 24 hr ondansetron HCl [Zofran] 4 mg PO Q6H PRN #30 tab 06/08/20 Allergies Allergy/AdvReac Type Severity Reaction Status Date / Time duloxetine HCl AdvReac Unknown Unverified 06/09/20 15:27 [From Cymbalta] black flies AdvReac Severe hives Uncoded 06/09/20 15:27 wood smoke AdvReac Severe hives Uncoded 06/09/20 15:27 General Stated Complaint: Chest Pain JEROD: 2 Review of Systems Narrative: 6 systems reviewed and otherwise negative FOR[facility]LY [facility], [facility] Medical History Hypothyroidism Polymyalgia rheumatica Surgical History (Updated 06/07/20 @ 17:09 by Doug Paz) H/O total cystectomy vaginal cystectomy History of benign breast biopsy Family History Sister Gastric cancer Niece Breast cancer Social History Smoking/Tobacco Use Status: Former Tobacco Use Smoking risk assessment performed?: Yes Alcohol Intake: current Alcohol Intake frequency: 0-2 drinks per day Alcohol type: wine Drug use: Daily Substance use type: does not use Details: CBD oil on ankle Do you feel safe at home: Yes Do you feel safe in your relationship?: Yes Exam Narrative Exam Narrative: GEN: awake, alert, oriented 3. Pleasant, well groomed, interactive. Slight jaundice of skin HEAD: Normocephalic, atraumatic ENT: Mucous membranes moist, External ear exam unremarkable EYES: PERRL, EOMI NECK: Full ROM, no EDU, no menigismus CHEST/RESP: Nontender, clear to auscultation bilateral, no wheeze/rhonchi/rales CARDIOVASCULAR: RRR, no murmur, rub russel. 2+ Rad pulse bilateral ABDOMEN: Soft, minimal tenderness to palpation in the epigastrium without rebound or guarding, no mass. +Bowel sounds EXT: Full ROM, no edema, no rash Neuro: Grossly normal neurologic exam, conversant, interactive. Psych: Speech fluent, thoughts congruent, affect normal Course Vital Signs Vital signs: Vital Signs Temperature 36.8 C 06/09/20 15:22 Pulse 75 06/09/20 15:22 Respiratory Rate 16 06/09/20 15:22 Blood Pressure 158/71 H 06/09/20 15:22 Pulse Oximetry 97 06/09/20 15:22 Temperature 36.8 C 06/09/20 15:22 Temperature Source Skin 06/09/20 15:22 Pulse 75 06/09/20 15:24 Pulse 75 06/09/20 15:27 Respiratory Rate 18 06/09/20 15:27 Respiratory Effort Non-Labored 06/09/20 15:25 Blood Pressure 158/71 H 06/09/20 15:24 Blood Pressure Mean 90 06/09/20 15:24 Blood Pressure Position Sitting 06/09/20 15:22 Pulse Oximetry 95 06/09/20 15:27 Oxygen Delivery Method Room Air 06/09/20 15:22 Oxygen Flow Rate 0 06/09/20 15:22 Pain Level 0 06/09/20 15:22
[2020-06-09 16:07] LABS: Abs Immature Grans 0.05 10^3/uL (0.0-0.06); Absolute Basophil Count 0.05 10^3/uL (0.0-0.2); Absolute Lymphocyte Count 1.47 10^3/uL (1.2-3.4); Absolute Monocyte Count 0.49 10^3/uL (0.1-0.8); Absolute Neutrophil Count 4.21 10^3/uL (1.2-6.7); Basophils % 0.8; Eosinophils % 1.6; HCT 38.9 % (36.0-46.0); Immature Grans % 0.8; Lymphocytes % 23.1; MCH 30.4 pg (27.0-33.0); MCHC 33.4 % (32.0-36.0); MCV 91.1 fL (80-95); MPV 10.6 fL (8.0-11.0); Monocytes % 7.7; Nucleated RBC 0 %; Platelet Count 360 10^3/uL (130-400); RBC 4.27 10^6/uL (3.93-5.22); RDW 15.1 % (11.7-14.6); RDW-SD 50.4 fL; WBC 6.37 10^3/uL (4.4-10.8)
[2020-06-09 16:30] LABS: ALT 315 U/L (14-59); AST 238 U/L (15-37); Albumin 3.3 g/dL (3.4-5.0); BUN 14 mg/dL (7-18); Bilirubin, Total 5.4 mg/dL (0.2-1.0); CREATININE 0.71 mg/dL (0.55-1.02); Calcium 9.4 mg/dL (8.5-10.1); Chloride 99 mmol/L (98-107); Glucose 110 mg/dL (74-106); Potassium 3.3 mmol/L (3.5-5.1); Sodium 136 mmol/L (136-145); Total Protein 7.7 g/dL (6.4-8.2)
[2020-06-09 16:32] LABS: Alkaline Phosphatase 1451 U/L (46-116); Troponin I < 0.05 ng/mL (<0.06)
--- NOTE | 2020-06-09 17:54 | NUR.NOTE ---
referral to Care Management to make f/u appt to [facility]. Provider discussed case with RUDY CM.Nursing Note:
--- NOTE | 2020-06-09 18:30 | RT.EKG_ITS ---
APPROVED REPORT Exam: Resting ECG Patient Location: E HR:65 bpm ECG Measurements Heart Rate 65 AXIS MO 169 P 66 QRSd 89 QRS 31 QT 394 T 61 QTc 409 Conclusion Sinus rhythm.. Nonspecific T abnormalities, anterior leads.
[2020-06-09 19:03] LABS: Troponin I 0.05 ng/mL (<0.06)
--- NOTE | 2020-06-10 11:46 | CMPROGNOTE_ITS ---
- If Service Date Differs Date of service: 06/10/20 Time of Service: 11:49 Care Management Progress Note Gale is seen in the ED on 06/09/20 for chest pain. At the request of Dr. Giles, ED provider, ZEN coordinates a referral to [facility] Cardiology. An appointment is scheduled for Gale on July 05, 2020 at [facility] with cardiology.
--- NOTE | 2020-06-10 11:46 | PDOC.ERCMPRO ---
- If Service Date Differs Date of service: 06/10/20 Time of Service: 11:49 Care Management Progress Note Gale is seen in the ED on 06/09/20 for chest pain. At the request of Dr. Giles, ED provider, ZEN coordinates a referral to [facility] Cardiology. An appointment is scheduled for Gale on July 05, 2020 at [facility] with cardiology.
== END 2020-06-09 19:38 | disposition home or self-care (01) ==
PROVIDERS: Emergency Provider Emergency Medicine; PCP Family Medicine
DX: R93.3 Abnormal findings on diagnostic imaging of other parts of digestive tract (principal); R94.31 Abnormal electrocardiogram [ECG] [EKG]; K86.89 Other specified diseases of pancreas
CPT/HCPCS: 36415; 80053; 93005; 99284; 83735; 84484; 85025; 93010

== ENCOUNTER 2020-06-13 14:40 | Outpatient (REF) | payer MEDICARE, SELFPAY ==
[2020-06-13 19:06] LABS: ALT 274 U/L (14-59); AST 204 U/L (15-37); Albumin 3.4 g/dL (3.4-5.0); Bilirubin, Total 6.7 mg/dL (0.2-1.0); Total Protein 7.2 g/dL (6.4-8.2)
[2020-06-13 19:30] LABS: Alkaline Phosphatase 1470 U/L (46-116)
== END 2020-06-13 15:00 ==
LOC: NCHCN 14:40
PROVIDERS: PCP Family Medicine; Visit Provider Family Medicine
DX: K83.1 Obstruction of bile duct (principal); R79.89 Other specified abnormal findings of blood chemistry
CPT/HCPCS: 80076

== ENCOUNTER 2020-06-29 15:44 | Outpatient (REF) | payer MEDICARE, SELFPAY ==
--- OUTSIDE RECORDS SUMMARY | 2020-06-29 15:56 | XMS_ITS ---
:1940 Author Care Team Providers Name Role Phone DR. RINKU BRANDT Primary Care Provider [phone] DR. RINKU BRANDT Referring Provider [phone] Allergies Code Code System Name Reaction Severity Status Onset 009935 RxNorm Cymbalta ? ? Active ? Notes: wood smoke black flies Medications Name Status Start Date Stop Date ? ? Adult Aspirin Regimen 81 mg tablet,delayed release Active ? Not available Take 1 tablet every day by oral route. Aleve 220 mg tablet Completed ? 04/14/2018 Take 1 tablet every 12 hours by oral route as needed. B Complex 50 ER tablet,extended release Active ? Not available Take 1 tablet every day by oral route. Calcium 600 with Vitamin D3 600 mg (1,500 mg)-200 unit tablet Ac tive ? Not available Take 2 tablets every day by oral route. CoQ-10 Active ? Not available 50mg daily CoQ-10 30 mg capsule Completed ? 09/11/2018 Take 1.5 capsules every day by oral route. Emergen-C 1,000 mg oral effervescent powder packet Active ? Not available Take by oral route as needed. Estrace 0.01% (0.1 mg/gram) vaginal cream Active ? Not available INSERT 1 GRAM BY VAGINAL ROUTE twice WEEKLY ferrous sulfate, dried ER 168 mg (50 mg iron) tablet,extended re lease Active ? Not available Take 1 tablet every day by oral route. fluoxetine 10 mg tablet Completed ? 08/13/19 20 Take 1 tablet every day by oral route. fluoxetine 20 mg tablet Active ? Not avai lable Take 1 tablet every day by oral route. glucosamine 116 mg-chondroitin 100 mg-dietary supplement #25 cap abraham Active ? Not available Take 1 capsule twice a day by oral route. hydroxyzine HCl 10 mg tablet Active ? Not available Take 1 tablet as needed by oral route. Levoxyl 112 mcg tablet Active ? Not avail able Take 1 tablet every day by oral route. magnesium Active ? Not available 400 mg with zinc once daily Multiple Vitamin Active ? Not available once daily Myrbetriq 25 mg tablet,extended release Active ? Not available Take 1 tablet every day by oral route. oxybutynin chloride 5 mg tablet Completed ? 01/11/2020 Take 1 tablet every day by oral route. paroxetine 10 mg tablet Completed ? 02/17/20 19 Take 0.5 tablets every day by oral route. prednisone 1 mg tablet Active ? Not avail able Take 1 tablet every day by oral route. prednisone 5 mg tablet Completed ? 0 Take 2 tablets every day by oral route. red yeast rice 600 mg tablet Completed ? Take 1 tablet twice a day by oral route. triamcinolone acetonide 0.1 % topical cream Active ? Not available APPLY A THIN LAYER TO THE AFFECTED AREA (S) BY TOPICAL ROUTE 2 TIMES PER DAY PRN Tylenol Extra Strength 500 mg tablet Active ? Not available Take 1 tablet every 3-4 hours by oral route as needed. Wheat Germ Active ? Not available with flaxseed Problems Name Status Onset Date Source ? Multinodular Goiter Active 04/08/2018 ? Hypothyroidism Active 04/08/2018 ? Hyperlipidemia Active 04/08/2018 ? Foot Callus Active 04/08/2018 ? Ingrowing Nail Active 04/08/2018 ? Urticaria Active 04/08/2018 ? Polymyalgia Active 04/08/2018 ? Osteopenia Active 04/08/2018 ? Fatigue Active 04/08/2018 ? Urinary Incontinence Active 04/08/2018 ? Procedures None recorded. Results Lab Results None recorded. 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 01/11/2020 [place] [facility] [place] [employer]: [address] [place] [phone], Ph. 11/09/2019 Avulsion of Toenail of Right Foot [facility]: [address] [place] [phone], Ph. 08/13/2019 Intractable Plantar Keratoma [facility]: [address] [place] [phone], Ph. 05/04/2019 [place] [facility]: [address] [place] [phone], Ph. 02/16/2019 Hallux Valgus and Bunion; [place] [facility] [employer] [employer]: [address] [place] [phone], Ph. Social History Tobacco Smoking Status Never Smoker Vaccine List Vaccine Type Hep B, unspecified formulation 12/05/2000 01/02/2001 06/05/2001 pneumococcal polysaccharide PPV23 05/31/1993 02/28/2009 pneumococcal, unspecified formulation 12/20/2014 Td(adult) unspecified formulation 03/26/2005 Tdap 03/26/2012 zoster live 12/02/2007 Plan of Care Patient Instructions Patient should consider use of a Mo rton's extension to unload the IP joint of the callus which is hyperextended and th ere is a relatively large 3 mm diameter IP K under the interphalangeal joint of the h allux. Reminders Provider Appointments None recorded. ? ? Lab None recorded. ? ? Referral None recorded. ? ? Procedures None recorded. ? ? Surgeries None recorded. ? ? Imaging None recorded. ? ? Vitals 05/16/2020 01:00PM PODIATRY NAIL DEBRIDEMENT Height Weight BMI Blood Pressure 167.64 cm 72.57 kg 25.8 kg/m2 01/11/2020 02:45PM PODIATRY NAIL DEBRIDEMENT Height Weight BMI Blood Pressure 167.64 cm 72.57 kg 25.8 kg/m2 110/60 mm[Hg] 11/09/2019 02:30PM PODIATRY NAIL DEBRIDEMENT Height Weight BMI Blood Pressure 167.64 cm 70.31 kg 25 kg/m2 122/64 mm[Hg] 08/13/2019 02:00PM PODIATRY NAIL DEBRIDEMENT Height Weight BMI Blood Pressure 167.64 cm 70.31 kg 25 kg/m2 130/66 mm[Hg] 05/04/2019 01:30PM PODIATRY NAIL DEBRIDEMENT Height Weight BMI Blood Pressure 167.64 cm 70.31 kg 25 kg/m2 126/68 mm[Hg] 02/16/2019 01:15PM PODIATRY NAIL DEBRIDEMENT Height Weight BMI Blood Pressure 167.64 cm 70.31 kg 25 kg/m2 122/62 mm[Hg] 11/18/2018 02:30PM PODIATRY FOLLOW UP Height Weight BMI Blood Pressure 167.64 cm 70.31 kg 25 kg/m2 122/62 mm[Hg] 09/11/2018 01:00PM PODIATRY NAIL DEBRIDEMENT Height 167.64 cm 09/11/2018 01:30PM PODIATRY ACUTE Height Weight BMI Blood Pressure 167.64 cm 70.31 kg 25 kg/m2 128/62 mm[Hg] 07/07/2018 01:15PM PODIATRY NAIL DEBRIDEMENT Height Weight BMI Blood Pressure 167.64 cm 70.31 kg 25 kg/m2 140/72 mm[Hg] 04/14/2018 02:30PM PODIATRY NEW PATIENT Height Weight BMI Blood Pressure 167.64 cm 70.31 kg 25 kg/m2 128/62 mm[Hg]
--- OUTSIDE RECORDS SUMMARY | 2020-06-29 15:56 | XMS_ITS | Encounter Summary ---
:1940 Author Care Team Providers Name Role Phone Dr. Aissatou Grayson Primary Care Provider [phone] Dr. Aissatou Grayson Referring Provider [phone] Reason for Visit nailsLAST PCP VISIT 01/29/20 Assessment and Plan Assessment Note Assessment/Plan: 1. Hallux Limitus Left 2. Keratoderma 3. Onychomycosis -Discussed symptoms and etiology with maurizio mauro. -Pared lesions as courtesy with #15 blad e x 1. Pt tolerated procedure well with negative trauma to skin. all skin intact -Counseled patient on foot care: drying feet well, especially between toes, apply cream to top and bottom of feet and not between, and never walking without shoes or hard bottom slippers. -Under aseptic technique, debrided nails 1-10, of all devitalized tissue, using sterile nail nipper and curettage, to he althy nail as possible. Patient tolerated procedure well, without compli cations. -Advised patient on proper foot hygiene and shoe gear for condition. -Advised patient to perform daily foot c hecks. -Advised patient to f/u with PCP as dire cted. -RTC every 3 months 1. Acquired hallux limitus of le ft great toe 2. Acquired plantar keratoderma 3. Onychomycosis of toenails Discussion Note: None recorded.Patient educational handouts: No information available. Plan of Care Reminders Provider Appointments Podiatry Nail [facility] Debridement 07/25/2020 12:30PM Lab None recorded. ? ? Referral None recorded. ? ? Procedures None recorded. ? ? Surgeries None recorded. ? ? Imaging None recorded. ? ? Medications Name Start Date ? ? Adult Aspirin Regimen 81 mg tablet,delayed release ? Take 1 tablet every day by oral route. B Complex 50 ER tablet,extended release ? Take 1 tablet every day by oral route. Calcium 600 with Vitamin D3 600 mg (1,500 mg)-200 unit tablet ? Take 2 tablets every day by oral route. CoQ-10 ? 50mg daily Emergen-C 1,000 mg oral effervescent powder packet ? Take by oral route as needed. Estrace 0.01% (0.1 mg/gram) vaginal cream ? INSERT 1 GRAM BY VAGINAL ROUTE twice WEEKLY ferrous sulfate, dried ER 168 mg (50 mg iron) tablet,e xtended release ? Take 1 tablet every day by oral route. fluoxetine 20 mg tablet ? Take 1 tablet every day by oral route. glucosamine 116 mg-chondroitin 100 mg-dietary suppleme nt #25 capsule ? Take 1 capsule twice a day by oral route. hydroxyzine HCl 10 mg tablet ? Take 1 tablet as needed by oral route. Levoxyl 112 mcg tablet ? Take 1 tablet every day by oral route. magnesium ? 400 mg with zinc once daily Multiple Vitamin ? once daily Myrbetriq 25 mg tablet,extended release ? Take 1 tablet every day by oral route. prednisone 1 mg tablet ? Take 1 tablet every day by oral route. triamcinolone acetonide 0.1 % topical cream ? APPLY A THIN LAYER TO THE AFFECTED AREA (S) BY TOPICAL ROUTE 2 TIMES PER DAY PRN Tylenol Extra Strength 500 mg tablet ? Take 1 tablet every 3-4 hours by oral route as needed . Wheat Germ ? with flaxseed Medications Administered None recorded. Vitals Height Weight BMI Blood Pressure 5 ft 6 in 160 lbs 25.8 kg/m2 Results Lab Results None recorded. Allergies Code Code System Name Reaction Severity Onset 087029 RxNorm Cymbalta ? ? ? Notes: wood smoke black flies Problems Name Status Onset Date Source ? Multinodular Goiter Active 04/08/2018 ? Hypothyroidism Active 04/08/2018 ? Hyperlipidemia Active 04/08/2018 ? Foot Callus Active 04/08/2018 ? Ingrowing Nail Active 04/08/2018 ? Urticaria Active 04/08/2018 ? Polymyalgia Active 04/08/2018 ? Osteopenia Active 04/08/2018 ? Fatigue Active 04/08/2018 ? Urinary Incontinence Active 04/08/2018 ? Procedures None recorded. Vaccine List Vaccine Type Hep B, unspecified formulation 12/05/2000 01/02/2001 06/05/2001 pneumococcal polysaccharide PPV23 05/31/1993 02/28/2009 pneumococcal, unspecified formulation 12/20/2014 Td(adult) unspecified formulation 03/26/2005 Tdap 03/26/2012 zoster live 12/02/2007 Social History Tobacco Smoking Status Never Smoker Smokeless Tobacco Status Never used smokeless tobacco Has patient visited an area known to be N high risk for 2019 n-CoV? Most Recent Tobacco Use Screening 05/16/2020 E-cigarette/Vape Status Never used electronic cigarettes In the 14 days before symptom onset, did N the patient spend time in [facility]? If patient spent time in [facility] N - Does the patient live in [facility]? Functional Status Unknown. Past Encounters 05/16/2020 Acquired Hallux Limitus of Left Great To e; Acquired Plantar Keratoderma; Onychomycosis of Toenails Ana Luisa Crump, DPM: [address] [place] [address], Ph. History of Present Illness Note: 79 y/o female presents with painful callous when she walks and in shoes. pt would also like nail care. No other acute pedal concerns. chart and meds reviewed. Review of Systems ? Notes: all neg at this time Physical Exam ? Notes: P/E: VASC:<div>b/l DP 0/4; R ight PT 2/4; Left PT 1/4; 0/4 pitting edema to b/l LE. Skin temp
</div>< div>warm to cool prox to distal b/l LE. decreased pedal hair growth b/l LE.
</div><div>Capillary Fill time 1 sec bilateral; neg Varicosities b/l; neg Ru bor
</div><div>b/l
</div> <div>
</div><div>DERM:
</div><div>No open lesions noted b/l. </div><di v>+ HPK lesion: left sub hallux DIPJ: _+ intralesional hemorrhage +PO P</div><div>Nails 1-10 yellow dystrophic thick, elongated +POp with sub ungu al debris</div><div>
</div><div>MUSC:
</div><div>MMT 5/5 to al l major muscle groups b/l LE with decreased AJ, STJ, and pedal
</div><di v>joint ROM b/l. neg equinus b/l. No POP to b/l Achilles tendon insertions, </div><div>No POP along PT, peroneal or Achilles
</div><div>tendons. + digital contracture b/l 4,5.
</div><div>left Hallux Limitus with left 1st MTPJ dorsal and medial bony prominence</div><div>
</d iv><div>NEURO:
</div><div>Protective threshold intact b/l LE as per 5.07 mo nofilament().
</div>
[2020-06-29 20:19] LABS: ALT 48 U/L (14-59); AST 40 U/L (15-37); Albumin 3.2 g/dL (3.4-5.0); Alkaline Phosphatase 433 U/L (46-116); Amylase 40 U/L (25-115); BUN 16 mg/dL (7-18); Bilirubin, Total 1.2 mg/dL (0.2-1.0); Calcium 8.9 mg/dL (8.5-10.1); Chloride 100 mmol/L (98-107); Glucose 145 mg/dL (74-106); Lipase 229 U/L (73-393); Potassium 4.3 mmol/L (3.5-5.1); Sodium 134 mmol/L (136-145); Total Protein 7.1 g/dL (6.4-8.2)
== END 2020-06-29 16:04 ==
LOC: NCHCN 15:44
PROVIDERS: PCP Family Medicine; Visit Provider Family Medicine
DX: R94.39 Abnormal result of other cardiovascular function study (principal); C25.9 Malignant neoplasm of pancreas, unspecified
CPT/HCPCS: 80053; 83690; 82150

== ENCOUNTER 2020-07-13 02:02 | Outpatient (CLI) | payer MEDICARE, SELFPAY ==
--- NOTE | 2020-07-13 09:26 | DI.US_ITS ---
APPROVED REPORT EXAM: Comprehensive 2D, Doppler, and color-flow Echocardiogram Patient Location: Out-Patient Cargo Inspector: Sivan Sebastian RDCS (AE) Indications: Pre operative exam, Chest pain, Abnormal EKG,Hyperlipidemia, Pancreatic Mass Other Information Study Quality: Adequate Conclusion Normal left ventricular wall thickness and chamber size. Estimated ejection fraction is 60 to 65%. There are no segmental wall motion abnormalities Right ventricular free wall appears hypertrophied. Normal right ventricular chamber size and systoli c function Both atria are normal in size There is no significant valvular disease Wall motion Left Ventricle The left ventricle is normal size. The left ventricular systolic function is normal. The left ventric ular ejection fraction is within the normal range. There is normal left ventricular wall thickness. T here is normal LV segmental wall motion. There is no ventricular septal defect visualized. LVEF is 60 -65%. Right Ventricle The right ventricle is normal size. The right ventricular systolic function is normal. The RVSP is 27 .3 mmHg. Right ventricle is moderately hypertrophied. Atria The left atrium size is normal. The right atrium size is normal. The interatrial septum is intact wit h no evidence for an atrial septal defect. Aortic Valve The aortic valve is normal in structure. Aortic valve is trileaflet. There is no aortic valvular sten osis. No aortic regurgitation is present. Mitral Valve The mitral valve is normal in structure. No evidence of mitral valve stenosis. Mild mitral regurgitat ion. Tricuspid Valve The tricuspid valve is normal in structure. There is no tricuspid valve stenosis. Trace tricuspid reg urgitation. Pulmonic Valve The pulmonary valve is normal in structure. There is no pulmonic valvular stenosis. Trace pulmonic re gurgitation. Great Vessels The aortic root is normal in size. The ascending aorta is normal in size. IVC is normal in size and c ollapses >50% with inspiration. Pericardium There is no pericardial effusion. 2D Dimensions IVSD d PLAX 0.84 cm F: 0.6-1.0 LV Vol A2C d MOD 95.3 mL LVPW d PLAX 0.98 cm F: 0.6 - 1.0 LV Vol A4C d MOD 81.0 mL LVID d PLAX 4.15 cm F: 3.8 - 5.2 LA vol/ BSA A2C s A-L 33.5 mL/m2 LVDs 2.75 cm F: 2.2 - 3.5 LA vol/ BSA A4C s A-L 27.1 mL/m2 Ao Root d 2.64 cm F: 2.7 - 3.3 LA Vol/ BSA Biplane s A-L 31.3 mL/m2 RA Area A4C 13.48 cm2 LA Area A4C s MOD 17.00 cm2 RA Vol/ BSA A4C s A-L 18.8 mL/m2 LA Area A2C s MOD 19.66 cm2 Ao Asc Diam d 3.24 cm F: 2.3 - 3.1 LV EF A4C MOD 62.3 % LV EF Teichholz 61.9 % LV EF A2C MOD 57.6 % LVEF (Carr's) 57.11 % F: 54 - 74 LV EF Biplane MOD 57.1 % LV Volume 69.21 mL F: 46 - 106 SV 50.92 mL LV Volume Index 38.23 mL/m2 F: 29 - 61 SV Index 28.14 mL/m2 LV Vol Biplane MOD 89.2 mL FS 32.95 % M-Mode TAPSE 2.83 cm (M/F) >1.7 LV Diastology MV E' medial 0.055 (>0.07 m/s) E/A Ratio 1.0 LV E/e MED 11.25 (<14) MV E Vmax 0.62 (0.4-1.3 m/s) MV E' lateral 0.062 (>0.1 m/s) MV A Vmax 0.65 (0.4-1.3 m/s) LV E/e LAT 9.90 (<14) MV E/A Ratio 0.94 MV E/E' medial 11.26 MV E/E' lateral 9.93 Aortic Valve LVOT Area 3.06 cm2 AoV Area Vmax 2.81 cm2 LVOT Vmax 1.27 m/s AoV Area/ BSA (Vmax) 1.55 cm2/m2 LVOT Mean Raul. 0.73 m/s TYREL Mean Raul. 2.33 cm2 LVOT Peak Grad 6.5 mmHg TYREL Mean Raul. Index 1.29 cm2/m2 LVOT Mean Grad 2.7 mmHg LVOT VTI 0.247 m LVOT Diam s 1.95 cm AoV Vmax 1.38 m/s Velocity Ratio 0.92 AoV Mean Raul. 0.96 m/s AoV Peak Grad 7.6 mmHg LVOT SV 75.40 mL AoV Mean Grad 4.1 mmHg AoV VTI 0.285 m AoV Area VTI 2.65 cm2 AoV Area/ BSA (VTI) 1.46 cm/m2 Mitral Valve MV DT 218 (160-240 msec) MV PHT 63 msec MV Area PHT 3.48 cm2 MV VTI 0.181 m MV VTI Annulus 0.191 m MV Area VTI 4.39 (4.0-6.0 cm2) Pulmonary Valve PV Vmax 1.09 (0.5-1.5 m/s) RVOT Peak Gr. 3.66 mmHg PV Peak Grad 4.8 mmHg RVOT Mean Gr. 1.95 mmHg PV Mean Grad 2.8 mmHg RVOT VTI 0.183 m PV VTI 0.218 m RVOT Vmax 0.96 m/s Tricuspid Valve TR Peak Grad 24.2 mmHg TR Vmax 2.46 m/s RA Pressure 3.00 mmHg RVSP (TR) 27.3 mmHg
== END 2020-07-13 02:22 ==
PROVIDERS: PCP Family Medicine; Visit Provider Family Medicine
DX: R07.9 Chest pain, unspecified (principal); Z01.818 Encounter for other preprocedural examination; E78.5 Hyperlipidemia, unspecified; R94.31 Abnormal electrocardiogram [ECG] [EKG]; K86.89 Other specified diseases of pancreas
CPT/HCPCS: 93306

== ENCOUNTER 2020-07-29 10:00 | Outpatient (RCR) | payer MEDICARE, SELFPAY ==
[2020-07-29] MEDS: Heparin 500 UNITS/5 ML SYRINGE IV (12:40)
[2020-07-29] MEDS: Normal Saline Flush 10 ML SYR IVP (12:40)
[2020-07-29 12:55] LABS: Abs Immature Grans 0.03 10^3/uL (0.0-0.06); Absolute Basophil Count 0.04 10^3/uL (0.0-0.2); Absolute Eosinophil Count 0.13 10^3/uL (0.0-0.7); Absolute Lymphocyte Count 2.87 10^3/uL (1.2-3.4); Absolute Monocyte Count 0.62 10^3/uL (0.1-0.8); Absolute Neutrophil Count 5.57 10^3/uL (1.2-6.7); Basophils % 0.4; Eosinophils % 1.4; HCT 35.7 % (36.0-46.0); HGB 11.8 g/dL (11.2-15.7); Immature Grans % 0.3; MCH 31.8 pg (27.0-33.0); MCHC 33.1 % (32.0-36.0); MCV 96.2 fL (80-95); MPV 9.1 fL (8.0-11.0); Monocytes % 6.7; Neutrophils % 60.2; Nucleated RBC 0 %; Platelet Count 354 10^3/uL (130-400); RBC 3.71 10^6/uL (3.93-5.22); RDW 12.9 % (11.7-14.6); WBC 9.26 10^3/uL (4.4-10.8)
[2020-07-29 13:09] LABS: ALT 35 U/L (14-59); AST 31 U/L (15-37); Albumin 3.7 g/dL (3.4-5.0); Alkaline Phosphatase 158 U/L (46-116); Anion Gap 8.9 mmol/L (3-11); BUN 20 mg/dL (7-18); Bilirubin, Total 0.5 mg/dL (0.2-1.0); CO2 26.1 mmol/L (21.0-32.0); CREATININE 0.7 mg/dL (0.55-1.02); Calcium 9.1 mg/dL (8.5-10.1); Chloride 97 mmol/L (98-107); Glucose 123 mg/dL (74-106); Potassium 3.9 mmol/L (3.5-5.1); Sodium 132 mmol/L (136-145); Total Protein 7.9 g/dL (6.4-8.2)
== END 2020-07-31 23:59 | disposition home or self-care (01) ==
LOC: INF 10:00
PROVIDERS: PCP Family Medicine; Visit Provider Internal Medicine Hematology & Oncology
DX: C25.0 Malignant neoplasm of head of pancreas (principal); Z45.2 Encounter for adjustment and management of vascular access device
CPT/HCPCS: 36591; 80053; 85025

== ENCOUNTER 2020-08-19 01:43 | Outpatient (RCR) | payer MEDICARE, SELFPAY ==
[2020-08-19] MEDS: Normal Saline Flush 10 ML SYR IVP (08:11)
[2020-08-19 08:21] LABS: Abs Immature Grans 0.03 10^3/uL (0.0-0.06); Absolute Basophil Count 0.05 10^3/uL (0.0-0.2); Absolute Eosinophil Count 0.46 10^3/uL (0.0-0.7); Absolute Lymphocyte Count 2.05 10^3/uL (1.2-3.4); Absolute Monocyte Count 0.37 10^3/uL (0.1-0.8); Absolute Neutrophil Count 2.07 10^3/uL (1.2-6.7); Eosinophils % 9.1; HGB 12.3 g/dL (11.2-15.7); Immature Grans % 0.6; Lymphocytes % 40.8; MCH 31.5 pg (27.0-33.0); MCHC 32.4 % (32.0-36.0); MCV 97.4 fL (80-95); MPV 9.2 fL (8.0-11.0); Monocytes % 7.4; Neutrophils % 41.1; Nucleated RBC 0 %; Platelet Count 293 10^3/uL (130-400); RDW 13.3 % (11.7-14.6); WBC 5.03 10^3/uL (4.4-10.8)
[2020-08-19 08:39] LABS: ALT 42 U/L (14-59); AST 29 U/L (15-37); Albumin 3.4 g/dL (3.4-5.0); Alkaline Phosphatase 153 U/L (46-116); Anion Gap 8.3 mmol/L (3-11); BUN 19 mg/dL (7-18); Bilirubin, Total 0.3 mg/dL (0.2-1.0); CO2 27.7 mmol/L (21.0-32.0); CREATININE 0.7 mg/dL (0.55-1.02); Calcium 8.7 mg/dL (8.5-10.1); Chloride 100 mmol/L (98-107); Glucose 159 mg/dL (74-106); Sodium 136 mmol/L (136-145); Total Protein 7.4 g/dL (6.4-8.2)
[2020-08-22 12:58] LABS: CA 19-9 3196 U/mL (<35)
== END 2020-08-28 23:59 | disposition home or self-care (01) ==
LOC: INF 01:43
PROVIDERS: PCP Family Medicine; Visit Provider Internal Medicine Hematology & Oncology
DX: C25.0 Malignant neoplasm of head of pancreas (principal); Z45.2 Encounter for adjustment and management of vascular access device
CPT/HCPCS: 36591; 80053; 85025; 86301

== ENCOUNTER → 2020-08-23 14:56 | Outpatient (BNVA) | payer MEDICARE, SELFPAY | PROVIDERS: PCP Family Medicine; Referring Provider Family Medicine; Visit Provider Nurse Practitioner Gerontology | DX: N39.46 Mixed incontinence (principal); C25.0 Malignant neoplasm of head of pancreas; R91.8 Other nonspecific abnormal finding of lung field | CPT/HCPCS: 99443 ==

== ENCOUNTER 2020-09-28 01:57 | Outpatient (CLI) | payer MEDICARE, SELFPAY ==
[2020-09-28] MEDS: Omnipaque 350 MG/ML 50 ML BTL IJ (07:44)
[2020-09-28] MEDS: Breeza Beverage 473 ML BTL PO ×2 (07:45→07:46)
--- NOTE | 2020-09-28 09:05 | DI.CT_ITS ---
EXAM: CT CHEST/ABD/PEL W CLINICAL HISTORY: PANCREATIC HEAD CT,C25.0,DRUG INDUCED NAUSEA,VOMITING,R11.2,T50.905A,ASSESS. TECHNIQUE: Imaging Protocol: Axial computed tomography images with coronal and sagittal reformatted images were created and reviewed CONTRAST MATERIAL: Intravenous: Omnipaque 350 Contrast volume:100 ml Oral: Yes COMPARISON: CT CT CHEST/ABD/PEL W from 06/07/2020 FINDINGS: CHEST: LUNGS: The previously described 1.3 x 1.3 centimeter nodule in the left lower lobe adjacent to segmen lynn vessels is unchanged in size. There are no new focal left lung findings nor pleural effusions. No new focal findings in the opposite-right lung. A small 2 millimeter subpleural nodule laterally i n the posterior segment of the right upper lobe is unchanged. No new focal right lung findings. No pleural effusions. There are no significant focal findings in the trachea and mainstem bronchi.. MEDIASTINUM: There is no new hilar nor mediastinal adenopathy. No subcarinal adenopathy. No axillar y adenopathy. No supraclavicular adenopathy. Distal tip of the Port-A-Cath is at the SVC-RA junctio n CARDIAC: Heart size is normal. There is no pericardial effusion.Caliber of the thoracic aorta is wit hin normal limits. OSSEOUS: No significant osseous lesions.. ABDOMEN: There is no ascites. PANCREAS: There has been interval placement of a self expanding CBD stent which appears to be in satisfactory p osition. Air is seen within intrahepatic ducts, as expected. Gallbladder is not distended. No obvi ous acute gallbladder pathology. The previously described hypodense mass in the uncinate process of pancreas is noted but appears somewhat less well-defined at this time some probable edema in this are a. Some abnormal tissue from this mass is now interposed between the superior mesenteric artery and pre aortic left renal vein, slightly more so than previous. There is no encasement of the celiac art darius nor of its main branches. Pancreatic duct diameter is upper normal. LIVER: Liver is now steatotic but without evidence of obvious metastatic lesions. GALLBLADDER/BILIARY: The gallbladder is not distended. CBD stent in place. SPLEEN: Spleen is not enlarged. There are no intrasplenic lesions. Splenic and portal veins are chi nt. ADRENALS: There are no significant adrenal masses. KIDNEYS: No calculi nor hydronephrosis. No solid renal masses. No cysts evident. ABDOMINAL AORTA: Calcified but not enlarged LYMPH NODES: No para-aortic adenopathy. ABDOMINAL WALL/GI: No evidence of significant anterior abdominal wall hernia. No bowel obstruction. No abnormal tissue in the lesser sac. Posterior wall of the stomach appears unremarkable. Duodenal C loop is patent. PELVIS: LYMPH NODES: There is no intrapelvic nor inguinal adenopathy. GI: No evidence of appendicitis.No evidence of sigmoid diverticulitis. URINARY BLADDER: Not distended. No obvious abnormality. REPRODUCTIVE: Age-appropriate uterus and adnexal regions. No free fluid in the pelvis. OSSEOUS: No significant osseous lesions. IMPRESSION: 1. Compared to the prior CT scan of 06/07/2020 there has been interval stenting of the CBD with a per manent-type self expanding-type stent. This stent appears to be in satisfactory position there is mi ld pneumobilia, as expected. No gross dilatation of intrahepatic ducts nor significant dilatation of the gallbladder lumen. 2. The previously described neoplasm at the junction of the uncinate and pancreatic head appears slig htly less well-defined. There is some abnormal tissue now evident in the midline interposed between the superior mesenteric artery and the pre aortic left renal vein. I suspect this is malignant tissu e. It appears to encase 2 small arteries coming off of the posterior aspect of the superior mesenter ic artery. The superior mesenteric artery itself is not encased nor thrombosed. There is no thrombo sis of the adjacent preaortic left renal vein nor of the adjacent splenic vein and portal vein conflu ence.. Small portacaval lymph node again noted. There is no prominent para-aortic adenopathy. 3. Liver is now hypodense implying steatosis. However, there are no metastatic appearing lesions in the liver at this time. 4. Previously described 1.3 centimetres solitary concerning nodule in the left lung is unchanged. No additional lung nodules evident. No pleural effusions nor intrathoracic adenopathy evident. 5. No lytic osseous lesions identified. RADIATION DOSE DELIVERED: 1,602.26mGy.cm Total DLP DATA REPOSITORY: All CT scans at this facility are submitted to the National Radiology Data Registry (NRDR) Dose Index Registry (DIR) with the [employer] (ACR). RADIATION OPTIMIZATION: All CT scans at this facility use at least one of these dose optimization te chniques: automated exposure control; mA and/or kV adjustment per patient size (includes targeted exa ms where dose is matched to clinical indication); or iterative reconstruction.
[2020-09-28] MEDS: Normal Saline - Diluent 50 ML VIAL IV (09:14)
[2020-09-28] MEDS: Omnipaque 350 MG/ML 100 ML BTL IJ (09:15)
[2020-09-28] MEDS: Normal Saline Flush 10 ML SYR IVP (09:16)
== END 2020-09-28 02:17 ==
PROVIDERS: PCP Family Medicine; Visit Provider Nurse Practitioner Family
DX: C25.0 Malignant neoplasm of head of pancreas (principal); R11.2 Nausea with vomiting, unspecified; K76.0 Fatty (change of) liver, not elsewhere classified; R91.1 Solitary pulmonary nodule
CPT/HCPCS: 36415; 74177; 80053; 96523; 71260; 85025; 86301; J3490; Q9967

== ENCOUNTER 2020-09-28 02:29 | Outpatient (RCR) | payer MEDICARE, SELFPAY ==
[2020-09-02 08:29] LABS: Abs Immature Grans 0.01 10^3/uL (0.0-0.06); Absolute Basophil Count 0.05 10^3/uL (0.0-0.2); Absolute Eosinophil Count 0.46 10^3/uL (0.0-0.7); Absolute Lymphocyte Count 1.67 10^3/uL (1.2-3.4); Absolute Monocyte Count 0.38 10^3/uL (0.1-0.8); Absolute Neutrophil Count 1.73 10^3/uL (1.2-6.7); Basophils % 1.2; Eosinophils % 10.7; HCT 37.8 % (36.0-46.0); HGB 12.5 g/dL (11.2-15.7); Immature Grans % 0.2; Lymphocytes % 38.8; MCH 32.2 pg (27.0-33.0); MCHC 33.1 % (32.0-36.0); MCV 97.4 fL (80-95); MPV 8.8 fL (8.0-11.0); Monocytes % 8.8; Neutrophils % 40.3; Nucleated RBC 0 %; Platelet Count 260 10^3/uL (130-400); RBC 3.88 10^6/uL (3.93-5.22); RDW 13.6 % (11.7-14.6); RDW-SD 48.7 fL
[2020-09-02 08:46] LABS: ALT 64 U/L (14-59); AST 50 U/L (15-37); Albumin 3.3 g/dL (3.4-5.0); Alkaline Phosphatase 186 U/L (46-116); Anion Gap 10.8 mmol/L (3-11); BUN 19 mg/dL (7-18); Bilirubin, Total 0.3 mg/dL (0.2-1.0); CO2 27.2 mmol/L (21.0-32.0); CREATININE 0.7 mg/dL (0.55-1.02); Calcium 8.7 mg/dL (8.5-10.1); Chloride 101 mmol/L (98-107); Glucose 131 mg/dL (74-106); Potassium 3.6 mmol/L (3.5-5.1); Sodium 139 mmol/L (136-145); Total Protein 7.1 g/dL (6.4-8.2)
[2020-09-02] MEDS: Normal Saline Flush 10 ML SYR IVP (09:06)
[2020-09-05 12:20] LABS: CA 19-9 1512 U/mL (<35)
[2020-09-16] MEDS: Normal Saline Flush 10 ML SYR IVP (08:15)
[2020-09-16 08:29] LABS: Abs Immature Grans 0.01 10^3/uL (0.0-0.06); HCT 39.2 % (36.0-46.0); HGB 13.2 g/dL (11.2-15.7); MCH 32.3 pg (27.0-33.0); MCHC 33.7 % (32.0-36.0); MCV 95.8 fL (80-95); MPV 9.2 fL (8.0-11.0); Nucleated RBC 0 %; RBC 4.09 10^6/uL (3.93-5.22); RDW 13.7 % (11.7-14.6); RDW-SD 48.3 fL; WBC 4.13 10^3/uL (4.4-10.8)
[2020-09-16 08:42] LABS: ALT 46 U/L (14-59); AST 38 U/L (15-37); Albumin 3.3 g/dL (3.4-5.0); Alkaline Phosphatase 194 U/L (46-116); Anion Gap 8.6 mmol/L (3-11); BUN 15 mg/dL (7-18); Bilirubin, Total 0.3 mg/dL (0.2-1.0); CO2 28.4 mmol/L (21.0-32.0); CREATININE 0.8 mg/dL (0.55-1.02); Calcium 8.7 mg/dL (8.5-10.1); Chloride 100 mmol/L (98-107); Glucose 128 mg/dL (74-106); Potassium 3.8 mmol/L (3.5-5.1); Sodium 137 mmol/L (136-145); Total Protein 7.5 g/dL (6.4-8.2)
[2020-09-16 08:45] LABS: Absolute Eosinophil Count 0.25 10^3/uL (0.0-0.7); Absolute Lymphocyte Count 1.86 10^3/uL (1.2-3.4); Absolute Monocyte Count 0.45 10^3/uL (0.1-0.8); Absolute Neutrophil Count 1.53 10^3/uL (1.2-6.7); Atypical Lymphocytes % 3; Diff Comment Manual Differential; Platelet Count 245 10^3/uL (130-400); RBC Morphology Normal
[2020-09-19 12:17] LABS: CA 19-9 1868 U/mL (<35)
[2020-09-28] MEDS: Heparin 500 UNITS/5 ML SYRINGE IV (09:31)
[2020-09-28] MEDS: Normal Saline Flush 10 ML SYR IVP (09:31)
[2020-09-28 09:35] LABS: Abs Immature Grans 0.01 10^3/uL (0.0-0.06); Absolute Basophil Count 0.02 10^3/uL (0.0-0.2); Absolute Eosinophil Count 0.09 10^3/uL (0.0-0.7); Absolute Lymphocyte Count 1.42 10^3/uL (1.2-3.4); Absolute Monocyte Count 0.42 10^3/uL (0.1-0.8); Absolute Neutrophil Count 1.17 10^3/uL (1.2-6.7); Basophils % 0.6; Eosinophils % 2.9; HCT 36.9 % (36.0-46.0); HGB 12.3 g/dL (11.2-15.7); Immature Grans % 0.3; Lymphocytes % 45.4; MCH 31.9 pg (27.0-33.0); MCHC 33.3 % (32.0-36.0); MCV 95.6 fL (80-95); Monocytes % 13.4; Neutrophils % 37.4; Nucleated RBC 0 %; Platelet Count 195 10^3/uL (130-400); RBC 3.86 10^6/uL (3.93-5.22); RDW 14.4 % (11.7-14.6); RDW-SD 49.8 fL; WBC 3.13 10^3/uL (4.4-10.8)
[2020-09-28 09:54] LABS: ALT 47 U/L (14-59); AST 37 U/L (15-37); Albumin 2.9 g/dL (3.4-5.0); Alkaline Phosphatase 231 U/L (46-116); Anion Gap 5.7 mmol/L (3-11); BUN 17 mg/dL (7-18); Bilirubin, Total 0.3 mg/dL (0.2-1.0); CO2 30.3 mmol/L (21.0-32.0); CREATININE 0.7 mg/dL (0.55-1.02); Calcium 8.6 mg/dL (8.5-10.1); Chloride 98 mmol/L (98-107); Glucose 89 mg/dL (74-106); Potassium 3.6 mmol/L (3.5-5.1); Sodium 134 mmol/L (136-145); Total Protein 6.9 g/dL (6.4-8.2)
[2020-09-30 11:23] LABS: CA 19-9 1860 U/mL (<35)
== END 2020-09-28 23:59 | disposition home or self-care (01) ==
LOC: INF 02:29
PROVIDERS: PCP Family Medicine; Visit Provider Internal Medicine Hematology & Oncology
DX: C25.0 Malignant neoplasm of head of pancreas (principal); Z45.2 Encounter for adjustment and management of vascular access device
CPT/HCPCS: 36415; 36591; 80053; 96523; 85025; 86301

== ENCOUNTER 2020-10-16 19:29 | Inpatient (IN) | payer MEDICARE, SELFPAY ==
[2020-10-16] VITALS (33 sets, daily range): BP systolic 82–168; BP diastolic 30–74; PULSE 77–100; RESP 14–23; TEMP 37–37.1; O2SAT 81–98
--- NOTE | 2020-10-16 20:00 | RT.EKG_ITS ---
APPROVED REPORT Exam: Resting ECG Patient Location: E HR:94 bpm ECG Measurements Heart Rate 94 AXIS IL 150 P 72 QRSd 89 QRS 28 QT 356 T 195 QTc 445 Conclusion Sinus rhythm...normal P axis, V-rate 60- 99 Probable left atrial enlargement...P >50mS, <-0.10mV V1 Anteroseptal infarct, age indeterminate...Q >35mS, T neg, V1-V2 Abnormal T, consider ischemia, lateral leads...T <-0.20mV, I aVL V5 V6 Physician: Rate 94, sinus rhythm, less than a millimeter of ST depression in V3 through V6, no recipr ocal ST elevation aside for minimal less than a millimeter in V1. Does not meet STEMI criteria. Pre vious EKG from 06/09 demonstrates similar depressions at that time
--- NOTE | 2020-10-16 20:00 | DI.CT_ITS ---
EXAM: CT ABDOMEN PELVIS WO CLINICAL HISTORY: panc cancer, vomoyting, low back/L flank pain. TECHNIQUE: Imaging Protocol: Axial computed tomography images with coronal and sagittal reformatted images were created and reviewed CONTRAST MATERIAL: Intravenous: none Oral: None COMPARISON: CT CT CHEST/ABD/PEL W from 09/28/2020 FINDINGS: VISUALIZED LUNG BASES: In left lower lobe subhilar region there is again noted noncalcified 12 x 12 m illimeter nodule. Slightly above this level in the left lower lobe posteriorly there is a subpleural density which appears unchanged and possibly may represent pulmonary varicose. There dependent incr eased markings in posterior aspect of both lungs again noted. There are no pleural effusions. ABDOMEN: There is no ascites. LIVER: There is pneumobilia again noted in this patient who has a self expanding-type CBD stent in pl shannan. There is fluid and density in the inferior aspect of the stent just at and above the level of t he duodenal wall. GALLBLADDER/BILIARY: The gallbladder is not overly distended nor edematous and there is no pericholec ystic fluid. PANCREAS: On this noninfused study there is now a metallic density-probable surgical clip in the kylee on of the uncinate process the pancreas. This is at the site of previous abnormal tissue in this reg ion anterior to the pre aortic left renal vein. Another possibility is that this may represent embol ic material. The amount of abnormal tissue at this level adjacent to the superior mesenteric artery is basically unchanged from 09/28/2020. SPLEEN: Spleen is not enlarged. No obvious intrasplenic lesions. ADRENALS: There are no significant adrenal masses. KIDNEYS:No cysts evident. No solid renal masses. No calculi nor hydronephrosis. . ABDOMINAL AORTA: Abdominal aorta is not enlarged. LYMPH NODES: There is no retroperitoneal nor paraaortic adenopathy. ABDOMINAL WALL/GI: No evidence of significant anterior abdominal wall hernia. No bowel obstruction. PELVIS: LYMPH NODES: There is no intrapelvic nor inguinal adenopathy. GI: No evidence of appendicitis.No evidence of sigmoid diverticulitis. URINARY BLADDER: No calculi nor obvious masses evident REPRODUCTIVE: Age-appropriate OSSEOUS: No significant osseous lesions. IMPRESSION: 1. To the prior study of 09/29/2019 there is now what is probably a surgical clip in the abnormal sof t tissue mass adjacent to the pancreatic head uncinate process region adjacent to the superior mesent alex artery. This area appears relatively stable when compared to the prior study. 2. CBD stent is unchanged in position. Lower part of this stent contains some fluid and density. Pn eumobilia is again noted. The gallbladder is not edematous nor grossly distended. 3. Unchanged appearing left lung lower lobe nodules. No pleural effusions. RADIATION DOSE DELIVERED: Total DLP DATA REPOSITORY: All CT scans at this facility are submitted to the National Radiology Data Registry (NRDR) Dose Index Registry (DIR) with the [employer] (ACR). RADIATION OPTIMIZATION: All CT scans at this facility use at least one of these dose optimization te chniques: automated exposure control; mA and/or kV adjustment per patient size (includes targeted exa ms where dose is matched to clinical indication); or iterative reconstruction.
--- NOTE | 2020-10-16 20:00 | DI.RAD_ITS ---
EXAM: XR PORTABLE CHEST AP CLINICAL HISTORY: fever, vomiting. TECHNIQUE: 2D digital imaging was performed. COMPARISON: No exams were available for comparison FINDINGS: Heart size is upper normal. The mediastinum is not widened. Lungs are clear. No infiltrates nor obvious pleural effusions. Distal tip of the right supraclinoid in Port-A-Cath is at the SVC-RA junction. Incidentally noted is calcific tendinitis in the right shoulder. IMPRESSION: No acute pulmonary findings on this single AP portable view of the chest. Calcific tendinitis right shoulder. DATA REPOSITORY: RADIATION DOSE DELIVERED: All CT scans at this facility use at least one of these dose optimization techniques: automated exposure control; mA and/or kV adjustment per patient size (includes targeted e xams where dose is matched to clinical indication); or iterative reconstruction.
--- NOTE | 2020-10-16 20:12 | DI.CT_ITS ---
EXAM: CT LUMBAR SPINE RECONS CLINICAL HISTORY: low back and left flank pain. TECHNIQUE: Imaging Protocol: Axial computed tomography images with coronal and sagittal reformatted images were created and reviewed COMPARISON: CT CT CHEST/ABD/PEL W from 09/28/2020 FINDINGS: History of pancreatic malignancy. CBD stent noted as well as abnormal tissue with biopsy clip just a nterior to the aorta left renal vein region. Bones: There are no fractures, listhesis, nor pars defects. There are no lytic osseous lesions evide nt. INDIVIDUAL LEVELS: T12-L1:No disc herniation nor canal stenosis. Facet joints unremarkable. No foraminal stenosis. L1-2: Disc space narrowing is noted at this level. Also vacuum phenomenon seen within the disc spac e. There is posterior annular bulging. Appears to be a suggestion of a lateral right disc protrusio n at the level of the exiting right neural foramen with minimal foraminal stenosis. No significant f acet arthropathy. L2-3: No disc herniation nor canal stenosis. Facet joints unremarkable. No Foraminal stenosis L3-4: No disc herniation nor canal stenosis. Mild annular bulging. No dominant disc herniation. No central or canal stenosis. L4-5: Mild disc space narrowing. Broad annular bulging. Mild-moderate central canal stenosis. No significant foraminal stenosis. Mild facet arthropathy L5-S1: No disc herniation or canal stenosis. No disc height loss. No central canal stenosis. No f oraminal stenosis. No obvious facet arthropathy. The visualized sacroiliac joints and sacrum appear unremarkable. PARASPINAL SOFT TISSUES: Visualized paraspinal tissues appear unremarkable. IMPRESSION: 1. There is annular bulging with a superimposed lateral right disc protrusion at L2-3 level which ext ends into the exiting right neural foramen there is mild foraminal stenosis. Central canal dimension s lower normal. 2. There is mild central spinal canal stenosis L3 in-4 and L4-5 levels as described above. No signif icant foraminal stenosis. 3. No lytic osseous lesions identified, given the history of pancreatic malignancy here. A CBD stent is noted in the peripheral aspect of the field of view as is abnormal tissue adjacent to the pancrea tic head-preaortic region. There appears to be a surgical clip at this level. RADIATION DOSE DELIVERED: Total DLP DATA REPOSITORY: All CT scans at this facility are submitted to the National Radiology Data Registry (NRDR) Dose Index Registry (DIR) with the [employer] (ACR). RADIATION OPTIMIZATION: All CT scans at this facility use at least one of these dose optimization te chniques: automated exposure control; mA and/or kV adjustment per patient size (includes targeted exa ms where dose is matched to clinical indication); or iterative reconstruction.
[2020-10-16] MEDS: Normal Saline 1,000 ML 1000 ML IV (20:19)
[2020-10-16 20:21] LABS: Abs Immature Grans 0.05 10^3/uL (0.0-0.06); Absolute Basophil Count 0.03 10^3/uL (0.0-0.2); Absolute Eosinophil Count 0.11 10^3/uL (0.0-0.7); Absolute Lymphocyte Count 1.12 10^3/uL (1.2-3.4); Absolute Monocyte Count 0.26 10^3/uL (0.1-0.8); Absolute Neutrophil Count 6.89 10^3/uL (1.2-6.7); Basophils % 0.4; Eosinophils % 1.3; HCT 38.8 % (36.0-46.0); HGB 12.8 g/dL (11.2-15.7); Immature Grans % 0.6; Lymphocytes % 13.2; MCH 31.7 pg (27.0-33.0); MPV 9.2 fL (8.0-11.0); Monocytes % 3.1; Neutrophils % 81.4; Nucleated RBC 0 %; Platelet Count 237 10^3/uL (130-400); RBC 4.04 10^6/uL (3.93-5.22); RDW 15.2 % (11.7-14.6); RDW-SD 54.6 fL; WBC 8.46 10^3/uL (4.4-10.8)
[2020-10-16 20:23] LABS: Lactate 2.6 mmol/L (0.6-1.4)
[2020-10-16 20:38] LABS: ALT 224 U/L (14-59); AST 390 U/L (15-37); Albumin 3.4 g/dL (3.4-5.0); Alkaline Phosphatase 589 U/L (46-116); BUN 19 mg/dL (7-18); Bilirubin, Total 0.7 mg/dL (0.2-1.0); CREATININE 0.7 mg/dL (0.55-1.02); Calcium 8.9 mg/dL (8.5-10.1); Chloride 102 mmol/L (98-107); Glucose 106 mg/dL (74-106); Potassium 3.8 mmol/L (3.5-5.1); Sodium 138 mmol/L (136-145); Total Protein 7.8 g/dL (6.4-8.2)
[2020-10-16 20:42] LABS: Troponin I < 0.05 ng/mL (<0.06)
[2020-10-16] MEDS: Ondansetron 4 MG/2 ML VIAL IVP (20:50)
--- NOTE | 2020-10-16 20:53 | DI.VRAD_ITS ---
PROCEDURE INFORMATION: Exam: XR Chest Exam date and time: 10/16/2020 8:29 PM Age: 80 years old Clinical indication: Fever and other: Vomiting TECHNIQUE: Imaging protocol: XR of the chest. Views: 1 view. COMPARISON: CT CHEST/ABD/PEL W 28/09/2020 09:02 FINDINGS: Tubes, catheters and devices: Right IJ line in place with the tip in the mid superior vena cava. EKG wires overlie the chest. Lungs: Unremarkable. No consolidation. Pleural spaces: Unremarkable. No pleural effusion. No pneumothorax. Heart/Mediastinum: Unremarkable. No cardiomegaly. Bones/joints: Unremarkable for patient's age. IMPRESSION: No acute cardiopulmonary findings. Dictated and Authenticated by: Galilea Aleman MD. Ordering:JENNIFER Pringle MD
--- NOTE | 2020-10-16 21:02 | W.ED.GENAD ---
Discharge Plan Disposition Patient Disposition: [facility] INPATIENT Condition: Stable Discharge Details Chief Complaint: GenMedical Clinical Impression: Transaminitis, Elevated LDH, Fever of unknown origin Primary Care Provider: Aissatou Grayson ED Provider: Pino Doyle Home Meds and New Rx's Prescriptions: No Action fluoxetine 20 mg capsule 20 mg PO DAILY RF: 0 prednisone 1 mg tablet 1 mg PO DAILY RF: 0 Myrbetriq 25 mg tablet extended release 24 hr 25 mg PO DAILY Qty: 90 RF: 4 Hold Instructions: Home Medication placed on hold at Doctor's office tolterodine 4 mg capsule,extended release 24hr 4 mg PO DAILY Qty: 90 RF: 1 Hold Instructions: Home Medication placed on hold at Doctor's office aspirin [Aspir-81] 81 MG tablet,delayed release (DR/EC) 81 mg PO QAM RF: 0 triamcinolone acetonide 5 GM paste 1 ea Topical PRN PRNRF: 0 estradiol [Estrace] 42.5 GM cream 1 ea VG .2X A WEEK RF: 0 hydroxyzine HCl 10 MG tablet 10 mg PO PRN PRNRF: 0 diphenhydramine HCl [NightTime Sleep Aid (diphen)] 25 MG tablet 25 mg PO PRN PRNRF: 0 diphenhydramine-acetaminophen [Tylenol PM Extra Strength] 1 EACH tablet 1 ea PO HS PRN PRNRF: 0 levothyroxine [Levoxyl] 112 MCG tablet 112 mcg PO DAILY RF: 0 sulfamethoxazole-trimethoprim 1 TAB tablet 1 ea PO BID PRNRF: 0 vitamin B complex [B-Complex] 1 EACH tablet 1 ea PO DAILY RF: 0 magnesium 250 MG tablet 1 tab PO DAILY RF: 0 coenzyme Q10 [Co Q-10] 30 MG capsule 50 mg PO DAILY RF: 0 iron 18 MG tablet 18 mg PO DAILY RF: 0 red yeast rice 600 MG capsule 600 mg PO BID RF: 0 calcium carbonate-vitamin D3 [Calcium 500 With D] 1 EACH tablet 1 ea PO DAILY RF: 0 Emergen-C 1,000 MG powder effervescent in packet 1 ea PO DAILY RF: 0 ondansetron HCl [Zofran] 4 mg tablet 4 mg PO Q6H PRNQty: 30 RF: 0 Medical Decision Making 80-year-old female with a past medical history of pancreatic cancer/adenocarcinoma, left lung mass, recently just received fiduciary beads/gold beads 3 days ago. She has been doing well until this afternoon when she developed left lower back pain/flank pain, fever of 101, and nausea and vomiting shortly after eating a whopper at [employer]. She denies any chest pain or shortness of breath. She denies any history of heart attack or cardiac disease. She denies any urinary frequency, dysuria, or other complaint. She denies any cough or shortness of breath. She denies any epigastric abdominal pain. She did not take any Tylenol or Motrin prior to arrival. No other complaints at this time. She denies any chest pain. Physical exam is notably unremarkable. Lung sounds are clear, abdomen is nontender. Differential is broad but includes pulmonary pneumonia, urinary tract infection, kidney stone, or potential complication from fiduciary bead placement. We will treat the patient's pain, get labs, get imaging of her chest and abdomen, monitor closely and reassess. 1:14 AM Laboratory work-up has returned, initial labs show no elevation in white count, no bandemia, no significant left shift, electrolytes and bilirubin are all normal. Renal function normal. She does demonstrate fairly notable transaminitis and an elevated alkaline phosphatase. However this is in the setting of a normal lipase. Urinalysis is normal with no blood, Covid test is negative. Troponin is normal. Patient was rehydrated with a liter of normal saline. Repeat lactate is actually increasing now to 3.2 after initial lactate of 2.6. Pain is now completely resolved after an extensive treatment of Dilaudid and morphine. Patient feels much better. She has remained afebrile here, heart rate is stayed normal. Urinalysis negative. Uncertain as to the exact cause of her transaminitis and rising lactate. I did contact [facility] and discussed the case with oncology Dr. Alfaro they are uncertain as to the cause of what is going on as well. With no clear infectious etiology of pneumonia or UTI, and especially with negative lipase and negative bilirubin they are not certain. I also contacted [facility] gastroenterology and reviewed the case with them. Images were forwarded to [facility]. Dr. Ramirez of GI feels that the procedure is unrelated to her current symptomatology. Specially with a negative lipase and a negative bilirubin. [facility] does recommend observation and admission for the patient to trend her lactate and sending hepatitis studies. Patient remains hemodynamically stable currently. I discussed the case with Dr. Middleton, he agrees with the assessment and plan. Patient will be admitted. I have extensively reviewed the treatment plan with the patient. I have addressed all patient concerns at this time. I have also discussed the plan with the admitting physician and they agree with the current assessment and plan and have agreed to assume responsibility for the patient. All parties demonstrate verbal understanding and agreement with our assessment and plan at this time. The documentation in this chart was dictated using [employer] dictation software. Please excuse any dictation errors. EKG 21: 09 Rate 94, sinus rhythm, less than a millimeter of ST depression in V3 through V6, no reciprocal ST elevation aside for minimal less than a millimeter in V1. Does not meet STEMI criteria. Previous EKG from 06/09 demonstrates similar depressions at that time. FINDINGS: Tubes, catheters and devices: Tip of central infusion catheter in superior vena cava. Lungs: Dependent subsegmental atelectasis Liver: Normal. No mass. Gallbladder and bile ducts: Pneumobilia as previously demonstrated.. Soft tissue attenuation occludes biliary stent distally, less pronounced on comparison to prior. No gallstones or gallbladder wall thickening. Pancreas: Surgical clips now demonstrated within circumscribed soft tissue density measuring 1.6 cm, in or adjacent to pancreatic head and interposed between it and superior mesenteric artery. There is stranding of fat immediately about the density. No pancreatic ductal dilatation. Spleen: Normal. No splenomegaly. Adrenal glands: Normal. No mass. Kidneys and ureters: There is subtle, bilateral perinephric stranding which is nonspecific. Stomach and bowel: Unremarkable. No obstruction. No mucosal thickening. Colonic diverticula. Appendix: Normal appendix. Intraperitoneal space: Unremarkable. No free air. No significant fluid collection. Vasculature: There are coronary artery calcifications. Lymph nodes: Unremarkable. No enlarged lymph nodes. Urinary bladder: Unremarkable as visualized. Reproductive: Retroverted uterus. Bones/joints: Unremarkable. No acute fracture. Soft tissues: There is an uncomplicated fat-containing umbilical hernia. IMPRESSION: 1. No bowel obstruction. 2. Surgical clips now demonstrated in soft tissue within or immediately adjacent to pancreatic head which could represent pancreatic mass or adjacent enlarged lymph node. There is stranding of fat about the area which could be due to recent procedure, inflammatory process or infection. 3. Perinephric stranding of fat which could have several possible etiologies including scarring, third spacing of fluid, inflammatory process or infection. 4. Soft tissue attenuation occludes distal portion of biliary stent. 5. Colonic diverticula. Thank you for allowing us to participate in the care of your patient. Dictated and Authenticated by: Phi Ruelas DO 10/16/2020 11:07 PM Eastern Time ([place] & [place]) HPI General Date/Time Provider Initiated Documentation: 10/16/20 19:51. HPI Narrative: 80-year-old female with a past medical history of pancreatic cancer/adenocarcinoma, left lung mass, recently just received fiduciary beads/gold beads 3 days ago. She has been doing well until this afternoon when she developed left lower back pain/flank pain, fever of 101, and nausea and vomiting shortly after eating a whopper at [employer]. She denies any chest pain or shortness of breath. She denies any history of heart attack or cardiac disease. She denies any urinary frequency, dysuria, or other complaint. She denies any cough or shortness of breath. She denies any epigastric abdominal pain. She did not take any Tylenol or Motrin prior to arrival. No other complaints at this time. She denies any chest pain. Related Data Home Medications Medication Instructions Recorded Confirmed aspirin [Aspir-81] 81 mg PO QAM 07/16/15 08/23/20 estradiol [Estrace] 1 ea VG .2X A WEEK 07/16/15 08/23/20 hydroxyzine HCl 10 mg PO PRN PRN 07/16/15 08/23/20 triamcinolone acetonide 1 ea TOPICAL PRN PRN 07/16/15 08/23/20 Emergen-C 1 ea PO DAILY 08/03/16 08/23/20 calcium carbonate-vitamin D3 1 ea PO DAILY 08/03/16 08/23/20 [Calcium 500 With D] coenzyme Q10 [Co Q-10] 50 mg PO DAILY 08/03/16 08/23/20 diphenhydramine HCl [NightTime 25 mg PO PRN PRN 08/03/16 08/23/20 Sleep Aid (diphen)] diphenhydramine-acetaminophen 1 ea PO HS PRN PRN 08/03/16 08/23/20 [Tylenol PM Extra Strength] iron 18 mg PO DAILY 08/03/16 08/23/20 levothyroxine [Levoxyl] 112 mcg PO DAILY 08/03/16 08/23/20 magnesium 1 tab PO DAILY 08/03/16 08/23/20 red yeast rice 600 mg PO BID 08/03/16 08/23/20 sulfamethoxazole-trimethoprim 1 ea PO BID PRN 08/03/16 08/23/20 vitamin B complex [B-Complex] 1 ea PO DAILY 08/03/16 08/23/20 fluoxetine 20 mg capsule 20 mg PO DAILY 08/18/19 08/23/20 prednisone 1 mg tablet 1 mg PO DAILY 08/18/19 08/23/20 mirabegron 25 mg tablet,extended 25 mg PO DAILY #90 tab 09/25/19 08/23/20 release 24 hr tolterodine 4 mg capsule,extended 4 mg PO DAILY #90 cap 04/20/20 08/23/20 release 24 hr ondansetron HCl [Zofran] 4 mg PO Q6H PRN #30 tab 06/08/20 08/23/20 Previous Rx's Medication Instructions Recorded mirabegron 25 mg tablet,extended 25 mg PO DAILY #90 tab 09/25/19 release 24 hr tolterodine 4 mg capsule,extended 4 mg PO DAILY #90 cap 04/20/20 release 24 hr ondansetron HCl [Zofran] 4 mg PO Q6H PRN #30 tab 06/08/20 Allergies Allergy/AdvReac Type Severity Reaction Status Date / Time duloxetine HCl AdvReac Unknown Unverified 10/16/20 19:54 [From Cymbalta] black flies AdvReac Severe hives Uncoded 10/16/20 19:54 wood smoke AdvReac Severe hives Uncoded 10/16/20 19:54 General Stated Complaint: GenMedical JEROD: 2 Review of Systems All systems reviewed & are unremarkable except as noted in HPI and below PFSH Medical History Adenocarcinoma of head of pancreas Goals of care, counseling/discussion Hypothyroidism Palliative care patient Polymyalgia rheumatica Unintentional weight loss Surgical History H/O total cystectomy vaginal cystectomy History of benign breast biopsy Family History Sister , in 05/2020 from gastric cancer age 75 Gastric cancer Niece , age 45 Breast cancer Father , age 69 from small bowel cancer Small bowel cancer Social History Smoking/Tobacco Use Status: Former Tobacco Use Smoking risk assessment performed?: Yes Alcohol Intake: current Alcohol Intake frequency: 0-2 drinks per day Alcohol type: wine Drug use: Never Substance use type: does not use Details: CBD oil on ankle Caregiver/Support person: Yes Household members: spouse Housing: house Number of Children: 2 number of grandchildren: 3 Communication Needs: Corrective Lenses Education Level: high school Do you need help understanding health information?: Often 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; 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 Do you think of yourself as: straight/heterosexual Current gender identity: female What is your relationship status?: How often do you talk on the phone with friends or family?: three or more times per week How often do you get together with friends or relatives?: twice per week How often do you attend scientology or presybeterian services?: 4 or more times per year Panel score (0-1 are the most socially isolated patients): 3 What type of physical activity do you participate in: walking Duration: 15-30 minutes/day Frequency: 5-6 times per week Peyton/Catholic: Muslim Special peyton needs: No Seatbelt use: always Working smoke detector in home: Yes Do you feel safe at home: Yes Do you feel safe in your relationship?: Yes Additional Social history: to Quan. Has 2 daughters, Nena, who is an ICU nurse and Chelsey, who is a hospice nurse. Gale is doing much better than she was when first diagnosed. Sister in May 2020; she had heart burn and dyspepsia after her . When she had weight loss too, PCP worked her up. Found pancreatic cancer in head of pancreas. NO KNOWN METS at this time. Had negative w/u for endometrial ca; stage 1 lung cancer, very slow growing rare type, found. Watching only. Plan is to go ahead with chemo and radiation, then Whipple. Gale gearing herself up for the long escobedo. Wants to hear about Act 39/Medical Aid in Dying. Just gathering information. Exam Narrative Exam Narrative: 1.Const: Well-nourished, Well-developed, appearing stated age 2.Eyes: PERRL, no conjunctival injection, and symmetrical lids. 3.ENT: Atraumatic external nose and ears. Moist MM. Neck: Symmetric, trachea midline, No thyromegaly. No nuchal rigidity 4.CVS: +S1/S2, No murmurs or gallops. Peripheral pulses 2+ and equal in all extremities. Brisk capillary refill in all extremities. 5.RESP: Unlabored respiratory effort. Clear to auscultation bilaterally. No wheezes rales or rhonchi 6.GI: Soft, Nontender/Nondistended, No hepatosplenomegaly. No guarding or rebound. No epigastric tenderness, no reproducible flank or CVA tenderness. No midline spine tenderness. No tenderness to the pelvis with palpation 7.MSK: Normocephalic/Atraumatic, Extremities w/o deformity or ttp No cyanosis or clubbing, Normal movement of all extremities 8.Skin: Warm, Dry. No rashes or lesions. 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 Sensation grossly intact, no focal neurologic deficits. 10.Psych: (AAO) x3. Appropriate mood and affect Course Vital Signs Vital signs: Vital Signs Temperature 37.1 C 10/16/20 19:41 Pulse 90 10/16/20 19:41 Respiratory Rate 17 10/16/20 19:41 Blood Pressure 168/71 H 10/16/20 19:41 Pulse Oximetry 98 10/16/20 19:41 Temperature 37.1 C 10/16/20 19:41 Temperature Source Oral 10/16/20 19:41 Pulse 90 10/16/20 19:41 Respiratory Rate 17 10/16/20 19:41 Respiratory Effort 10/16/20 20:51 Blood Pressure 168/71 H 10/16/20 19:41 Blood Pressure Position Supine 10/16/20 19:41 Pulse Oximetry 98 10/16/20 19:41 Oxygen Delivery Method Room Air 10/16/20 19:41 Oxygen Flow Rate 0 10/16/20 19:41 Pain Level 4 10/16/20 19:41 Lab/Test Results Lab/Test Results: 10/16/20 20:13 Blood Blood Culture - Pending 10/16/20 20:13 Blood Blood Culture - Pending Laboratory Tests Range/Units 10/16/20 10/16/20 10/16/20 20:15 20:15 20:15 WBC (4.4-10.8) 10^3/uL RBC (3.93-5.22) 10^6/uL Hgb (11.2-15.7) g/dL Hct (36.0-46.0) % MCV (80-95) fL MCH (27.0-33.0) pg MCHC (32.0-36.0) % RDW (11.7-14.6) % Plt Count (130-400) 10^3/uL MPV (8.0-11.0) fL Immature Gran % Neutrophils % Lymphocytes % Monocytes % Eosinophils % Basophils % Nucleated RBC % % Absolute Neutrophils (1.2-6.7) 10^3/uL Absolute Lymphocytes (1.2-3.4) 10^3/uL Absolute Monocytes (0.1-0.8) 10^3/uL Absolute Eosinophils (0.0-0.7) 10^3/uL Absolute Basophils (0.0-0.2) 10^3/uL VBG Lactate (0.6-1.4) mmol/L 2.6 H* Sodium (136-145) mmol/L 138 Potassium (3.5-5.1) mmol/L 3.8 Chloride (98-107) mmol/L 102 Carbon Dioxide (21.0-32.0) mmol/L 26.0 Anion Gap (3-11) mmol/L 10.0 BUN (7-18) mg/dL 19 H Creatinine (0.55-1.02) mg/dL 0.7 Estimated GFR/1.73 m2 (mL/min/1.73m2) >= 60.00 Glucose (74-106) mg/dL 106 Calcium (8.5-10.1) mg/dL 8.9 Total Bilirubin (0.2-1.0) mg/dL 0.7 AST (15-37) U/L 390 H ALT (14-59) U/L 224 H Alkaline Phosphatase (46-116) U/L 589 H Troponin I (<0.06) ng/mL < 0.05 Total Protein (6.4-8.2) g/dL 7.8 Albumin (3.4-5.0) g/dL 3.4 Range/Units 10/16/ 20:15 WBC (4.4-10.8) 10^3/uL 8.46 RBC (3.93-5.22) 10^6/uL 4.04 Hgb (11.2-15.7) g/dL 12.8 Hct (36.0-46.0) % 38.8 MCV (80-95) fL 96.0 H MCH (27.0-33.0) pg 31.7 MCHC (32.0-36.0) % 33.0 RDW (11.7-14.6) % 15.2 H Plt Count (130-400) 10^3/uL 237 MPV (8.0-11.0) fL 9.2 Immature Gran % 0.6 Neutrophils % 81.4 Lymphocytes % 13.2 Monocytes % 3.1 Eosinophils % 1.3 Basophils % 0.4 Nucleated RBC % % 0 Absolute Neutrophils (1.2-6.7) 10^3/uL 6.89 H Absolute Lymphocytes (1.2-3.4) 10^3/uL 1.12 L Absolute Monocytes (0.1-0.8) 10^3/uL 0.26 Absolute Eosinophils (0.0-0.7) 10^3/uL 0.11 Absolute Basophils (0.0-0.2) 10^3/uL 0.03 VBG Lactate (0.6-1.4) mmol/L Sodium (136-145) mmol/L Potassium (3.5-5.1) mmol/L Chloride (98-107) mmol/L Carbon Dioxide (21.0-32.0) mmol/L Anion Gap (3-11) mmol/L BUN (7-18) mg/dL Creatinine (0.55-1.02) mg/dL Estimated GFR/1.73 m2 (mL/min/1.73m2) Glucose (74-106) mg/dL Calcium (8.5-10.1) mg/dL Total Bilirubin (0.2-1.0) mg/dL AST (15-37) U/L ALT (14-59) U/L Alkaline Phosphatase (46-116) U/L Troponin I (<0.06) ng/mL Total Protein (6.4-8.2) g/dL Albumin (3.4-5.0) g/dL
[2020-10-16 21:10] LABS: Bilirubin Negative (Negative); Blood Negative (Negative); Clarity Clear (Clear); Glucose Negative (Negative); Ketones Negative (Negative); Leukocyte Esterase Negative (Negative); Nitrite Negative (Negative); Urobilinogen 0.2 EU/dL (Up TO 0.2); pH 7.5 (5-8)
[2020-10-16] MEDS: HYDROmorphone 2 MG/ML VIAL 1 MG IVP (21:18)
[2020-10-16 22:24] LABS: Lipase 232 U/L (73-393)
--- NOTE | 2020-10-16 23:07 | DI.VRAD_ITS ---
PROCEDURE INFORMATION: Exam: CT Abdomen And Pelvis Without Contrast Exam date and time: 10/16/2020 9:49 PM Age: 80 years old Clinical indication: Abdominal pain and other: Flank; Generalized; Patient HX: Back and abdominal pain; Additional info: Panc cancer, vomitting, low back/l flank pain TECHNIQUE: Imaging protocol: Computed tomography of the abdomen and pelvis without contrast. Radiation optimization: All CT scans at this facility use at least one of these dose optimization techniques: automated exposure control; mA and/or kV adjustment per patient size (includes targeted exams where dose is matched to clinical indication); or iterative reconstruction. COMPARISON: CT CHEST/ABD/PEL W 09/28/2020 9:02 AM FINDINGS: Tubes, catheters and devices: Tip of central infusion catheter in superior vena cava. Lungs: Dependent subsegmental atelectasis Liver: Normal. No mass. Gallbladder and bile ducts: Pneumobilia as previously demonstrated.. Soft tissue attenuation occludes biliary stent distally, less pronounced on comparison to prior. No gallstones or gallbladder wall thickening. Pancreas: Surgical clips now demonstrated within circumscribed soft tissue density measuring 1.6 cm, in or adjacent to pancreatic head and interposed between it and superior mesenteric artery. There is stranding of fat immediately about the density. No pancreatic ductal dilatation. Spleen: Normal. No splenomegaly. Adrenal glands: Normal. No mass. Kidneys and ureters: There is subtle, bilateral perinephric stranding which is nonspecific. Stomach and bowel: Unremarkable. No obstruction. No mucosal thickening. Colonic diverticula. Appendix: Normal appendix. Intraperitoneal space: Unremarkable. No free air. No significant fluid collection. Vasculature: There are coronary artery calcifications. Lymph nodes: Unremarkable. No enlarged lymph nodes. Urinary bladder: Unremarkable as visualized. Reproductive: Retroverted uterus. Bones/joints: Unremarkable. No acute fracture. Soft tissues: There is an uncomplicated fat-containing umbilical hernia. IMPRESSION: 1. No bowel obstruction. 2. Surgical clips now demonstrated in soft tissue within or immediately adjacent to pancreatic head which could represent pancreatic mass or adjacent enlarged lymph node. There is stranding of fat about the area which could be due to recent procedure, inflammatory process or infection. 3. Perinephric stranding of fat which could have several possible etiologies including scarring, third spacing of fluid, inflammatory process or infection. 4. Soft tissue attenuation occludes distal portion of biliary stent. 5. Colonic diverticula. Dictated and Authenticated by: Phi Ruelas MD. Ordering:JENNIFER Pringle MD
--- NOTE | 2020-10-16 23:07 | DI.VRAD_ITS ---
PROCEDURE INFORMATION: Exam: CT Lumbar Spine Without Contrast Exam date and time: 10/16/2020 9:49 PM Age: 80 years old Clinical indication: Other: Back pain, flank pain; Additional info: Panc cancer, vomitting, low back/l flank pain TECHNIQUE: Imaging protocol: Computed tomography images of the lumbar spine without contrast. Radiation optimization: All CT scans at this facility use at least one of these dose optimization techniques: automated exposure control; mA and/or kV adjustment per patient size (includes targeted exams where dose is matched to clinical indication); or iterative reconstruction. COMPARISON: No relevant prior studies available. FINDINGS: Vertebrae: No acute fracture. Normal alignment. L1-L2: L1/2, minimal diffuse disc bulge without significant spinal or foraminal stenosis. L2-L3: L2/3, disc vacuum phenomenon with loss of disc space height, prominent diffuse disc bulge resulting in mild spinal stenosis, with extension into the neural foramina bilaterally resulting in mild bilateral foraminal stenosis. L3-L4: L3/4, minimal diffuse disc bulge without spinal stenosis. Left-sided foraminal extension resulting in minimal foraminal stenosis. L4-L5: L4/5, diffuse disc bulge resulting in mild spinal stenosis. Bilateral foraminal extension resulting in minimal bilateral foraminal stenosis. L5-S1: L5/S1, diffuse disc bulge without significant spinal stenosis. No evidence for foraminal extension. Soft tissues: Unremarkable. IMPRESSION: Multilevel mild degenerative disc disease. No significant spinal stenosis. Minimal foraminal stenosis as above. Dictated and Authenticated by: Graham George MD. Ordering:JENNIFER Pringle MD
[2020-10-16 23:35] LABS: Lactate 3.2 mmol/L (0.6-1.4)
[2020-10-17] VITALS (53 sets, daily range): BP systolic 72–120; BP diastolic 35–99; PULSE 62–94; RESP 14–23; TEMP 36.4–37.1; O2SAT 92–98
[2020-10-17 00:15] LABS: COVID-19 PCR Negative (Negative)
--- NOTE | 2020-10-17 01:13 | W.PM.HP.N ---
Date of service: 10/17/20 Time of Service: 01:13 Assessment and Plan Assessment and plan (1) Back pain: Status: Acute Assessment and plan: To summarize, here with acute onset back (or flank) pain, nausea, fever and transaminitis. Unclear how to tie case together. Some infectious or inflammatroy complication of recent procedure would be a consideration, but lipase is normal (despite some stranding around pancreas); the transaminitis is notable but does not appear to be an obstructive phenomenon given normal bilirubin, more hepatocellular pattern, but this would then appear to be unrelated. Or perhaps this was in fact some sort of food poisoning or other reaction to meal, though certainly not a typical profile of such. Will monitor overnight, track TAs,check viral serologies, IVF and prn analgesics and antiemetics. Reviewed ADs, requests Full Code. 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 Note that shared in meal and feels fine. In ER w/u of note for normal white count, lipase 232, AST 390, ALT 224, Alk phos 589, Bili 0.7; CT spine unrevealing, CT abdomen showing soft tissue occlusion of previously placed biliary stent, known mass in head of pancreas, and some adjacent stranding, and mild perinephric stranding as well; urinalysis unremarkable. Initial lactate 2.6, repeat 3.2. EKG shows non-specific STTW changes, but similar to prior (albeit perhaps somewhat more pronounced) with negative troponin. Case reviewed with both oncology and GI at [facility], no clear answer forthcoming, but they advised monitoring overnight. Patient has received Dilaudid, MS and Zofran. States she feels fine at present other than lingering anorexia. Review of Systems All systems reviewed & are unremarkable except as noted in HPI and below PFSH Medical History Adenocarcinoma of head of pancreas Goals of care, counseling/discussion Hypothyroidism Palliative care patient Polymyalgia rheumatica Unintentional weight loss Surgical History H/O total cystectomy vaginal cystectomy History of benign breast biopsy Family History Sister , in 05/2020 from gastric cancer age 75 Gastric cancer Niece , age 45 Breast cancer Father , age 69 from small bowel cancer Small bowel cancer Social History Smoking/Tobacco Use Status: Former Tobacco Use Smoking risk assessment performed?: Yes Alcohol Intake: current Alcohol Intake frequency: 0-2 drinks per day Alcohol type: wine Drug use: Never Substance use type: does not use Details: CBD oil on ankle Caregiver/Support person: Yes Household members: spouse Housing: house Number of Children: 2 number of grandchildren: 3 Communication Needs: Corrective Lenses Education Level: high school Do you need help understanding health information?: Often 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; 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 Do you think of yourself as: straight/heterosexual Current gender identity: female What is your relationship status?: How often do you talk on the phone with friends or family?: three or more times per week How often do you get together with friends or relatives?: twice per week How often do you attend scientologist or orthodox services?: 4 or more times per year Panel score (0-1 are the most socially isolated patients): 3 What type of physical activity do you participate in: walking Duration: 15-30 minutes/day Frequency: 5-6 times per week Peyton/Zoroastrianism: Adventist Special peyton needs: No Seatbelt use: always Working smoke detector in home: Yes Do you feel safe at home: Yes Do you feel safe in your relationship?: Yes Additional Social history: to Quan. Has 2 daughters, Nena, who is an ICU nurse and Chelsey, who is a hospice nurse. Gale is doing much better than she was when first diagnosed. Sister in May 2020; she had heart burn and dyspepsia after her . When she had weight loss too, PCP worked her up. Found pancreatic cancer in head of pancreas. NO KNOWN METS at this time. Had negative w/u for endometrial ca; stage 1 lung cancer, very slow growing rare type, found. Watching only. Plan is to go ahead with chemo and radiation, then Whipple. Gale gearing herself up for the long escobedo. Wants to hear about Act 39/Medical Aid in Dying. Just gathering information. Meds Allergies and Home Medications Allergies Allergy/AdvReac Type Severity Reaction Status Date / Time duloxetine HCl AdvReac Unknown Unverified 10/16/20 19:54 [From [facility]] black flies AdvReac Severe hives Uncoded 10/16/20 19:54 wood smoke AdvReac Severe hives Uncoded 10/16/20 19:54 Home Medications Medication Instructions Recorded Confirmed Type aspirin [Aspir-81] 81 mg PO QAM 07/16/15 08/23/20 History estradiol [Estrace] 1 ea VG .2X A WEEK 07/16/15 08/23/20 History hydroxyzine HCl 10 mg PO PRN PRN 07/16/15 08/23/20 History triamcinolone acetonide 1 ea TOPICAL PRN PRN 07/16/15 08/23/20 History Emergen-C 1 ea PO DAILY 08/03/16 08/23/20 History calcium carbonate-vitamin D3 1 ea PO DAILY 08/03/16 08/23/20 History [Calcium 500 With D] coenzyme Q10 [Co Q-10] 50 mg PO DAILY 08/03/16 08/23/20 History diphenhydramine HCl [NightTime 25 mg PO PRN PRN 08/03/16 08/23/20 History Sleep Aid (diphen)] diphenhydramine-acetaminophen 1 ea PO HS PRN PRN 08/03/16 08/23/20 History [Tylenol PM Extra Strength] iron 18 mg PO DAILY 08/03/16 08/23/20 History levothyroxine [Levoxyl] 112 mcg PO DAILY 08/03/16 08/23/20 History magnesium 1 tab PO DAILY 08/03/16 08/23/20 History red yeast rice 600 mg PO BID 08/03/16 08/23/20 History sulfamethoxazole-trimethoprim 1 ea PO BID PRN 08/03/16 08/23/20 History vitamin B complex [B-Complex] 1 ea PO DAILY 08/03/16 08/23/20 History fluoxetine 20 mg capsule 20 mg PO DAILY 08/18/19 08/23/20 History prednisone 1 mg tablet 1 mg PO DAILY 08/18/19 08/23/20 History mirabegron 25 mg tablet,extended 25 mg PO DAILY #90 tab 09/25/19 08/23/20 Rx release 24 hr tolterodine 4 mg capsule,extended 4 mg PO DAILY #90 cap 04/20/20 08/23/20 Rx release 24 hr ondansetron HCl [Zofran] 4 mg PO Q6H PRN #30 tab 06/08/20 08/23/20 Rx Exam Narrative Exam Narrative: 118/99, 82, 37.0, 23, 96 % RA. HEENT atraumatic, anicteric; neck supple; lungs clear; heart RRR w/o MRG; abdomen soft and NT w/o HSM; back no CVAT, redness or bruising,no spinal tenderness; extremities w/o edema; neuro Ox3, nonfocal Results Labs Result diagrams: 10/16/20 20:15 10/16/20 20:15 Labs: Laboratory Results - last 24 hr 10/16/20 10/16/20 10/16/20 20:15 20:15 20:15 WBC RBC Hgb Hct MCV MCH MCHC RDW Plt Count MPV Immature Gran % Neutrophils % Lymphocytes % Monocytes % Eosinophils % Basophils % Nucleated RBC % Absolute Neutrophils Absolute Lymphocytes Absolute Monocytes Absolute Eosinophils Absolute Basophils VBG Lactate 2.6 H* Sodium 138 Potassium 3.8 Chloride 102 Carbon Dioxide 26.0 Anion Gap 10.0 BUN 19 H Creatinine 0.7 Estimated GFR/1.73 m2 >= 60.00 Glucose 106 Calcium 8.9 Total Bilirubin 0.7 AST 390 H ALT 224 H Alkaline Phosphatase 589 H Troponin I < 0.05 Total Protein 7.8 Albumin 3.4 Lipase Urine Color Urine Clarity Urine pH Ur Specific [place] Urine Protein Urine Ketones Urine Blood Urine Nitrite Urine Bilirubin Urine Urobilinogen Ur Leukocyte Esterase Urine Glucose COVID-19 Source SARS-CoV-2 (PCR) 10/16/20 10/16/20 10/16/20 20:15 20:15 21:00 WBC 8.46 RBC 4.04 Hgb 12.8 Hct 38.8 MCV 96.0 H MCH 31.7 MCHC 33.0 RDW 15.2 H Plt Count 237 MPV 9.2 Immature Gran % 0.6 Neutrophils % 81.4 Lymphocytes % 13.2 Monocytes % 3.1 Eosinophils % 1.3 Basophils % 0.4 Nucleated RBC % 0 Absolute Neutrophils 6.89 H Absolute Lymphocytes 1.12 L Absolute Monocytes 0.26 Absolute Eosinophils 0.11 Absolute Basophils 0.03 VBG Lactate Sodium Potassium Chloride Carbon Dioxide Anion Gap BUN Creatinine Estimated GFR/1.73 m2 Glucose Calcium Total Bilirubin AST ALT Alkaline Phosphatase Troponin I Total Protein Albumin Lipase 232 Urine Color Yellow Urine Clarity Clear Urine pH 7.5 Ur Specific [place] 1.020 Urine Protein Negative Urine Ketones Negative Urine Blood Negative Urine Nitrite Negative Urine Bilirubin Negative Urine Urobilinogen 0.2 Ur Leukocyte Esterase Negative Urine Glucose Negative COVID-19 Source SARS-CoV-2 (PCR) 10/16/20 10/16/20 23:00 23:28 WBC RBC Hgb Hct MCV MCH MCHC RDW Plt Count MPV Immature Gran % Neutrophils % Lymphocytes % Monocytes % Eosinophils % Basophils % Nucleated RBC % Absolute Neutrophils Absolute Lymphocytes Absolute Monocytes Absolute Eosinophils Absolute Basophils VBG Lactate 3.2 H* Sodium Potassium Chloride Carbon Dioxide Anion Gap BUN Creatinine Estimated GFR/1.73 m2 Glucose Calcium Total Bilirubin AST ALT Alkaline Phosphatase Troponin I Total Protein Albumin Lipase Urine Color Urine Clarity Urine pH Ur Specific [place] Urine Protein Urine Ketones Urine Blood Urine Nitrite Urine Bilirubin Urine Urobilinogen Ur Leukocyte Esterase Urine Glucose COVID-19 Source Nasopharyx SARS-CoV-2 (PCR) Negative Last Vital Signs Temp 37 C 10/16/20 22:20 Pulse 77 10/17/20 00:30 Resp 15 10/17/20 00:31 BP 98/42 L 10/17/20 00:30 Pulse Ox 94 10/17/20 00:31 COVID-19 Screening Have you, or household traveled for leisure in last 14 days?: No Had IN PERSON contact w/suspected or confirmed C-19 person: No
[2020-10-17] MEDS: Lactated Ringers 1,000 ML 125 ML IV ×2 (05:00→12:28)
[2020-10-17 06:39] LABS: HCT 36.8 % (36.0-46.0); MCH 31.6 pg (27.0-33.0); MCHC 32.6 % (32.0-36.0); MCV 96.8 fL (80-95); MPV 9.5 fL (8.0-11.0); Platelet Count 218 10^3/uL (130-400); RDW 15.8 % (11.7-14.6); RDW-SD 56.6 fL; WBC 11.57 10^3/uL (4.4-10.8)
[2020-10-17 06:57] LABS: ALT 203 U/L (14-59); AST 238 U/L (15-37); Alkaline Phosphatase 466 U/L (46-116); Bilirubin, Total 0.7 mg/dL (0.2-1.0)
--- NOTE | 2020-10-17 09:18 | INITIAL_ITS ---
- If Service Date Differs Date of service: 10/17/20 Time of Service: 09:18 Care Management Initial Assess REASON FOR HOSPITALIZATION:: Back Pain, Fever PAST MEDICAL HISTORY/PAST SURGICAL HISTORY:: Adenocarcinoma of head of pancreas, goals of care, hypothyroidism, palliative care patient, polymyalgia rheumatica, unintentional weight loss, total cystectomy, benign breast biopsy PREVIOUS FUNCTIONAL STATUS/SOCIAL/FAMILY SUPPORTS:: Gale resides in [place] with her , Quan. She is battling cancer but remains independent at baseline in the community at this time. CURRENT FUNCTIONAL STATUS:: Gale was facetiming on the phone when CM attempted to meet with her. CM continues to follow. ADVANCE DIRECTIVES:: On file; Quan as agent. Has patient been provided with info about the portal/API?: Yes Did the patient sign up for the portal?: No CODE STATUS:: Full Code INSURANCE COVERAGE / FINANCIAL ISSUES:: Medicare. [employer] CURRENT HOME/COMMUNITY SERVICES/EQUIPMENT:: Palliative care, [facility]. PRIMARY CARE PHYSICIAN:: Aissatou Grayson POTENTIAL DISCHARGE NEEDS:: Follow up appointments. PATIENT/FAMILY EDUCATION NEEDS:: Review discharge instructions, discuss Ask Me Three. ANTICIPATED BARRIERS TO DISCHARGE:: None identified. TRANSPORTATION:: Via private vehicle with her . PLAN:: Gale will return home when ready per MD. She will follow up with her PCP and plan of care as prescribed. She will transport via private vehicle with her , Quan.
[2020-10-17 10:04] LABS: C-Reactive Protein 10.89 mg/dL (0.0-0.3)
--- NOTE | 2020-10-17 10:27 | W.PM.PROGNOT ---
Date of Service Date of service: 10/17/20 Time of Service: 10:27 Assessment and Plan Assessment and plan (1) Back pain: Status: Acute Assessment and plan: Unclear etiology. CT scan of her abdomen pelvis showed no evidence for kidney stones or hydronephrosis or pelvic abscess. It is possible that she may have some metastatic disease from her pancreatic cancer. Difficult to tie all of her symptoms together including her low-grade fever, leukocytosis, transaminitis. May be coincidence her symptoms started couple hours after eating a hamburger at a restaurant yesterday. Her reportedly ate same food and had no symptoms in the patient herself has no diarrhea to suggest any kind of a gastroenteritis. Acute hepatitis studies are pending at this time. Blood cultures are pending at this time. Her Covid swab was negative last night. It is concerning that her procalcitonin level is mildly elevated at 4.6 and her CRP is elevated at 10.8. I will advance her diet for lunch and wait for her blood cultures come back. If her back pain is readily controlled with ibuprofen and she has no fevers and her blood cultures come back no growth she could be potentially discharged with afternoon. Any further work-up can be pursued as an outpatient including MRI of her lumbosacral spine if she continues having low back pain. Qualifiers: Back pain location: low back pain Chronicity: acute Back pain laterality: midline Sciatica presence: without sciatica Qualified Code(s): M54.5 - Low back pain (2) Transaminitis: Status: Acute Assessment and plan: Unclear etiology. No obvious metastatic disease seen on her CT scan. Hepatitis studies are pending at this time. (3) Fever of unknown origin: Status: Acute Assessment and plan: As above Subjective Subjective Interval history since last seen: 80-year-old female with a history of pancreatic cancer status post biliary stent who has been poorly responsive to chemotherapy and now is scheduled to have radiation treatment. 3 days prior to this admission she had endoscopic procedure for placement of gold bead markers for her radiation treatment. Yesterday she and her were in [place] and stopped at [facility] and she ate a whopper. Couple hours later she felt ill with nausea vomiting and low back pain and a fever of 100 degrees. She presented to the emergency department where she promptly had a work-up including a CT scan of her chest that showed no infiltrates and no acute cardiopulmonary process. CT of the abdomen pelvis showed surgical clips in and adjacent to the pancreatic head along with some. Pancreatic fat stranding and perinephric fat stranding and some soft tissue attenuation at the distal biliary stent. No abscesses were seen and no evidence for bowel obstruction. Laboratory work-up showed elevated transaminases with AST and ALT in the 200s and alkaline phosphatase in the 400s. Blood lactate was elevated at 2.6 and tereza to 3.2 last night but is now down to 2.0. She has remained afebrile since admission and has had no further chills. She is complaining of mild headache and low back pain although her low back pain is not as severe as last night. She is on a clear liquid diet which we will advance to a regular diet. I will give her some ibuprofen for her back pain. We are awaiting results of her blood cultures. Her WBCs did rise slightly today to 11,500 whereas it had been normal yesterday at 8400. No antibiotics have been started. Her back pain was treated last night with Dilaudid and morphine. States the back pain was pretty severe last night and similar to when she had previous epidural. Her back pain this morning is more mild not severe like it was last night and there is no radicular symptoms down her legs. She denies any dysuria, shortness of breath, chest pain. She says that after her EGD she had a little bit of a sore throat and a cough but that is better now. Exam Narrative Exam Narrative: Full nontenderElderly female lying in bed semifowler position watching TV alert and oriented person place time circumstance. There are no cervical tenderness no thoracic tenderness Lungs are clear to auscultation Heart regular rate and rhythm Abdomen soft nontender no guarding or rebound tenderness Lower spine some mild tenderness over the lumbosacral spine Extremities without peripheral cyanosis or edema Objective Last Vital Signs Temp 36.4 C L 10/17/20 04:00 Pulse 76 10/17/20 04:16 Resp 18 10/17/20 04:00 BP 117/55 L 10/17/20 04:16 Pulse Ox 95 10/17/20 09:26 Laboratory Results - last 24 hr 10/16/20 10/16/20 10/16/20 20:15 20:15 20:15 WBC RBC Hgb Hct MCV MCH MCHC RDW Plt Count MPV Immature Gran % Neutrophils % Lymphocytes % Monocytes % Eosinophils % Basophils % Nucleated RBC % Absolute Neutrophils Absolute Lymphocytes Absolute Monocytes Absolute Eosinophils Absolute Basophils VBG Lactate 2.6 H* Sodium 138 Potassium 3.8 Chloride 102 Carbon Dioxide 26.0 Anion Gap 10.0 BUN 19 H Creatinine 0.7 Estimated GFR/1.73 m2 >= 60.00 Glucose 106 Calcium 8.9 Total Bilirubin 0.7 AST 390 H ALT 224 H Alkaline Phosphatase 589 H Troponin I < 0.05 C-Reactive Protein Total Protein 7.8 Albumin 3.4 Lipase Urine Color Urine Clarity Urine pH Ur Specific [place] Urine Protein Urine Ketones Urine Blood Urine Nitrite Urine Bilirubin Urine Urobilinogen Ur Leukocyte Esterase Urine Glucose COVID-19 Source SARS-CoV-2 (PCR) 10/16/20 10/16/20 10/16/20 20:15 20:15 21:00 WBC 8.46 RBC 4.04 Hgb 12.8 Hct 38.8 MCV 96.0 H MCH 31.7 MCHC 33.0 RDW 15.2 H Plt Count 237 MPV 9.2 Immature Gran % 0.6 Neutrophils % 81.4 Lymphocytes % 13.2 Monocytes % 3.1 Eosinophils % 1.3 Basophils % 0.4 Nucleated RBC % 0 Absolute Neutrophils 6.89 H Absolute Lymphocytes 1.12 L Absolute Monocytes 0.26 Absolute Eosinophils 0.11 Absolute Basophils 0.03 VBG Lactate Sodium Potassium Chloride Carbon Dioxide Anion Gap BUN Creatinine Estimated GFR/1.73 m2 Glucose Calcium Total Bilirubin AST ALT Alkaline Phosphatase Troponin I C-Reactive Protein Total Protein Albumin Lipase 232 Urine Color Yellow Urine Clarity Clear Urine pH 7.5 Ur Specific [place] 1.020 Urine Protein Negative Urine Ketones Negative Urine Blood Negative Urine Nitrite Negative Urine Bilirubin Negative Urine Urobilinogen 0.2 Ur Leukocyte Esterase Negative Urine Glucose Negative COVID-19 Source SARS-CoV-2 (PCR) 10/16/20 10/16/20 10/17/20 23:00 23:28 06:11 WBC RBC Hgb Hct MCV MCH MCHC RDW Plt Count MPV Immature Gran % Neutrophils % Lymphocytes % Monocytes % Eosinophils % Basophils % Nucleated RBC % Absolute Neutrophils Absolute Lymphocytes Absolute Monocytes Absolute Eosinophils Absolute Basophils VBG Lactate 3.2 H* Sodium Potassium Chloride Carbon Dioxide Anion Gap BUN Creatinine Estimated GFR/1.73 m2 Glucose Calcium Total Bilirubin 0.7 AST 238 H ALT 203 H Alkaline Phosphatase 466 H Troponin I C-Reactive Protein Total Protein Albumin Lipase Urine Color Urine Clarity Urine pH Ur Specific [place] Urine Protein Urine Ketones Urine Blood Urine Nitrite Urine Bilirubin Urine Urobilinogen Ur Leukocyte Esterase Urine Glucose COVID-19 Source Nasopharyx SARS-CoV-2 (PCR) Negative 10/17/20 10/17/20 10/17/20 06:11 09:30 09:30 WBC 11.57 H D RBC 3.80 L Hgb 12.0 Hct 36.8 MCV 96.8 H MCH 31.6 MCHC 32.6 RDW 15.8 H Plt Count 218 MPV 9.5 Immature Gran % Neutrophils % Lymphocytes % Monocytes % Eosinophils % Basophils % Nucleated RBC % Absolute Neutrophils Absolute Lymphocytes Absolute Monocytes Absolute Eosinophils Absolute Basophils VBG Lactate 2.0 H Sodium Potassium Chloride Carbon Dioxide Anion Gap BUN Creatinine Estimated GFR/1.73 m2 Glucose Calcium Total Bilirubin AST ALT Alkaline Phosphatase Troponin I C-Reactive Protein 10.89 H Total Protein Albumin Lipase Urine Color Urine Clarity Urine pH Ur Specific [place] Urine Protein Urine Ketones Urine Blood Urine Nitrite Urine Bilirubin Urine Urobilinogen Ur Leukocyte Esterase Urine Glucose COVID-19 Source SARS-CoV-2 (PCR)
[2020-10-17 10:32] LABS: Procalcitonin 4.6 ng/mL
[2020-10-17 11:13] LABS: Anion Gap 12.7 mmol/L (3-11); BUN 20 mg/dL (7-18); CO2 23.3 mmol/L (21.0-32.0); CREATININE 0.9 mg/dL (0.55-1.02); Calcium 8.7 mg/dL (8.5-10.1); Chloride 101 mmol/L (98-107); Glucose 133 mg/dL (74-106); Potassium 3.8 mmol/L (3.5-5.1); Sodium 137 mmol/L (136-145)
[2020-10-17] MEDS: Ibuprofen 400 MG TAB PO ×2 (11:57→18:38)
[2020-10-17] MEDS: PIPERACILLIN/TAZO 4.5 GM in Normal Saline 100 ML IVPB ×2 (16:22→20:00)
[2020-10-17 18:19] LABS: Bilirubin Negative (Negative); Blood Negative (Negative); Clarity Clear (Clear); Glucose Negative (Negative); Ketones Negative (Negative); Leukocyte Esterase Negative (Negative); Nitrite Negative (Negative)
[2020-10-17 18:26] LABS: Bacteria Moderate HPF (Negative); C & S Indicated? No/Sq. Contamination; Casts Negative LPF (Negative); Crystals Negative HPF (Negative); Epithelial Cells Many HPF (Negative); Mucus Negative (Negative); RBC 0-2 HPF (0-2)
[2020-10-18] VITALS (13 sets, daily range): BP systolic 143–161; BP diastolic 58–107; PULSE 59–68; RESP 16–18; TEMP 36.2–37.2; O2SAT 93–98
--- NOTE | 2020-10-18 | DI.US_ITS ---
EXAM: US ABDOMEN INDICATION: postive blood cultures; s/p biliary stent; panc CA COMPARISON: US US ECHOCARDIOGRAM from 07/13/2020 TECHNIQUE: Ultrasound abdomen performed using standard protocol FINDINGS: Abdominal ultrasound was performed according to the usual protocol. The liver is normal in size and shape. No focal hepatic lesion seen. There are small mobile nonshadowing gallstones. Gallbladder wall thickness is within normal limits. There is a stent in the common bile duct. There is pneumobilia. Patient reportedly has a known pancreatic mass but this is nonvisualized by ultrasound. Spleen is unremarkable in appearance with no focal lesion. Kidneys are normal in size and shape. No renal mass, hydronephrosis, or nephrolithiasis. Abdominal aorta and IVC are of normal diameter. IMPRESSION: No evidence of acute intra-abdominal process. Cholelithiasis noted.
[2020-10-18] MEDS: Lactated Ringers 1,000 ML 125 ML IV (01:00)
[2020-10-18] MEDS: PIPERACILLIN/TAZO 4.5 GM in Normal Saline 100 ML IVPB ×3 (03:47→20:18)
[2020-10-18] MEDS: Levothyroxine 100 MCG TAB PO (06:05)
[2020-10-18 06:55] LABS: Lactate 0.7 mmol/L (0.6-1.4)
[2020-10-18 06:59] LABS: Abs Immature Grans 0.03 10^3/uL (0.0-0.06); Absolute Basophil Count 0.02 10^3/uL (0.0-0.2); Absolute Eosinophil Count 0.45 10^3/uL (0.0-0.7); Absolute Monocyte Count 0.34 10^3/uL (0.1-0.8); Absolute Neutrophil Count 3.29 10^3/uL (1.2-6.7); Basophils % 0.4; Eosinophils % 9.1; HCT 34.9 % (36.0-46.0); HGB 11.6 g/dL (11.2-15.7); Immature Grans % 0.6; Lymphocytes % 16.2; MCHC 33.2 % (32.0-36.0); MCV 96.4 fL (80-95); MPV 9.5 fL (8.0-11.0); Monocytes % 6.9; Neutrophils % 66.8; Nucleated RBC 0 %; Platelet Count 166 10^3/uL (130-400); RBC 3.62 10^6/uL (3.93-5.22); RDW 15.3 % (11.7-14.6); RDW-SD 54.8 fL; WBC 4.93 10^3/uL (4.4-10.8)
[2020-10-18 07:14] LABS: ALT 141 U/L (14-59); AST 120 U/L (15-37); Albumin 2.6 g/dL (3.4-5.0); Alkaline Phosphatase 382 U/L (46-116); Anion Gap 7.5 mmol/L (3-11); BUN 10 mg/dL (7-18); Bilirubin, Total 0.8 mg/dL (0.2-1.0); CO2 28.5 mmol/L (21.0-32.0); CREATININE 0.6 mg/dL (0.55-1.02); Calcium 8.6 mg/dL (8.5-10.1); Chloride 106 mmol/L (98-107); Glucose 108 mg/dL (74-106); Lipase 102 U/L (73-393); Potassium 3.7 mmol/L (3.5-5.1); Sodium 142 mmol/L (136-145); Total Protein 6.7 g/dL (6.4-8.2)
[2020-10-18] MEDS: Mirabegron 25 MG TABCR PO (10:12)
[2020-10-18] MEDS: FLUoxetine 20 MG CAP PO (10:13)
[2020-10-18] MEDS: Normal Saline Flush 10 ML SYR (10:33)
--- NOTE | 2020-10-18 11:09 | PDOC.CMPRO ---
Care Management Progress Note S/O: Gale was sitting up in her chair when CM met with her. She reported her , Quan has been visiting her daily. She shared that the couple celebrated their fifty-seventh anniversary on the of this month. Her daughter is a nurse at [employer] , so is unable to visit between the hours of 1:00-4:00. Gale states they are keeping in close contact through facetime. She shares no additional concerns at this time and reports being content with her care and treatment plan. CM continues to follow. A: 80 year old female admitted to [facility] 10/17/20 with back pain, fever P: Gale will return home when ready per MD. She will follow up with her PCP and plan of care as prescribed. She will transport via private vehicle with her , Quan.
[2020-10-18 11:13] LABS: Hepatitis A Antibody IgM Negative (Negative); Hepatitis B Core Antibody Negative (Negative); Hepatitis B surface Ag Negative (Negative); Hepatitis C Ab w Rflx HCV PCR Negative (Negative)
--- NOTE | 2020-10-18 11:47 | PGE_ITS ---
Date of Service Date of service: 10/18/20 Time of Service: 11:47 Assessment and Plan Assessment and plan (1) Gram negative sepsis: Status: Acute Assessment and plan: Most likely source is transmigration across her biliary tract during the ERCP and implantation of the gold bead markers for her radiation treatments. She has no other symptos such as UTI, pneumonia, etc. U.S. of her abdomen showed no evidence for cholecystitis or pancreatic abscess. Her inflammatory markers such as her lactate and wbc and transaminases are improved or back to normal. She is now on Zosyn 4.5 gm IV Q8hr. (2) Back pain: Status: Acute Assessment and plan: will get plain film xr of her LS spine but may need CT or MRI to rule out metastatic disease. Treat w/ Tramadol and ibuprofen Qualifiers: Back pain location: low back pain Chronicity: acute Back pain laterality: midline Sciatica presence: without sciatica Qualified Code(s): M54.5 - Low back pain (3) Transaminitis: Status: Acute Assessment and plan: improving (4) Adenocarcinoma of head of pancreas: Status: Acute Assessment and plan: patient was scheduled to go to radiation therapy for a simulation run this week. I told her that we could not discharge her until her blood cultures are clearing. We will get repeat blood cultures and if they come back negative we could potentially discharge her on on oral antibiotics. (5) DVT prophylaxis: Status: Acute Assessment and plan: patient had not been put on prophylaxis. I will start her on enoxaparin while hospitalized. Subjective Subjective Interval history since last seen: Patient is feeling markedly better. She denies any fever, chills, rigors, dyspnea, CP, abdominal pains. Her only complaint is some mild low back pain over the LS area. No radiculopathy. Exam Narrative Exam Narrative: Elderly female who is alert and oriented person place time circumstance. Lungs are clear to auscultation Heart regular rate and rhythm Abdomen soft and nontender LS-spine minimal tenderness over the lower lumbar upper sacral area. No visible swelling or bruising Objective Last Vital Signs Temp 36.2 C L 10/18/20 09:37 Pulse 62 10/18/20 08:20 Resp 16 10/18/20 05:53 BP 143/66 H 10/18/20 08:20 Pulse Ox 98 10/18/20 08:19 Laboratory Results - last 24 hr 10/17/20 10/18/20 10/18/20 18:00 06:47 06:47 WBC 4.93 D RBC 3.62 L Hgb 11.6 Hct 34.9 L MCV 96.4 H MCH 32.0 MCHC 33.2 RDW 15.3 H Plt Count 166 MPV 9.5 Immature Gran % 0.6 Neutrophils % 66.8 Lymphocytes % 16.2 Monocytes % 6.9 Eosinophils % 9.1 Basophils % 0.4 Nucleated RBC % 0 Absolute Neutrophils 3.29 Absolute Lymphocytes 0.80 L Absolute Monocytes 0.34 Absolute Eosinophils 0.45 Absolute Basophils 0.02 VBG Lactate Sodium 142 Potassium 3.7 Chloride 106 Carbon Dioxide 28.5 Anion Gap 7.5 BUN 10 D Creatinine 0.6 D Estimated GFR/1.73 m2 >= 60.00 Glucose 108 H Calcium 8.6 Total Bilirubin 0.8 AST 120 H ALT 141 H Alkaline Phosphatase 382 H Total Protein 6.7 Albumin 2.6 L Lipase 102 Urine Color Yellow Urine Clarity Clear Urine pH 7.0 Ur Specific [place] 1.020 Urine Protein Trace H Urine Ketones Negative Urine Blood Negative Urine Nitrite Negative Urine Bilirubin Negative Urine Urobilinogen 1.0 H Ur Leukocyte Esterase Negative Urine RBC 0-2 Urine WBC 3-5 Ur Epithelial Cells Many Urine Crystals Negative Urine Bacteria Moderate Urine Casts Negative Urine Mucus Negative Ur Culture Indicated? No/sq. contamination Urine Glucose Negative 10/18/20 06:47 WBC RBC Hgb Hct MCV MCH MCHC RDW Plt Count MPV Immature Gran % Neutrophils % Lymphocytes % Monocytes % Eosinophils % Basophils % Nucleated RBC % Absolute Neutrophils Absolute Lymphocytes Absolute Monocytes Absolute Eosinophils Absolute Basophils VBG Lactate 0.7 Sodium Potassium Chloride Carbon Dioxide Anion Gap BUN Creatinine Estimated GFR/1.73 m2 Glucose Calcium Total Bilirubin AST ALT Alkaline Phosphatase Total Protein Albumin Lipase Urine Color Urine Clarity Urine pH Ur Specific [place] Urine Protein Urine Ketones Urine Blood Urine Nitrite Urine Bilirubin Urine Urobilinogen Ur Leukocyte Esterase Urine RBC Urine WBC Ur Epithelial Cells Urine Crystals Urine Bacteria Urine Casts Urine Mucus Ur Culture Indicated? Urine Glucose
--- NOTE | 2020-10-18 12:32 | TELEFU_ITS ---
Date of service: 10/18/20 Time of Service: 12:32 Nutritional Follow up NOTE: 80 year old female admitted with back pain s/p row markers for radiation placed on head of pancreas due to pancreatic cancer. [employer] consulted with patient 3 months ago to optimize nutrition during chemo/radiation. Weight has remained stable, BMI wnl for age. Reports chemo completion, to start 5 weeks of radiation. Reviewed macro and micro nutrient intake recommendations. Following regular diet with adequate intake to meet nutrient needs. Pt has contact info and will follow prn. Time Spent in Nutritional Counseling and Treatment: 10
[2020-10-18] MEDS: Enoxaparin 40 MG/0.4 ML SYR SC (12:49)
--- NOTE | 2020-10-18 15:42 | DI.RAD_ITS ---
EXAM: XR LUMBAR SPINE COMPLETE CLINICAL HISTORY: low back pain TECHNIQUE: COMPARISON: CR XR DEXA BONE DENSITY W/WO NADIA from 03/10/2020 FINDINGS: Five views were obtained. Note is made of a biliary stent. The intervertebral disc spaces appear fa irly well maintained except for mild loss of height at the L2-3 level. There are moderate hypertroph ic degenerative changes of the facet joints and vertebral endplates throughout the lumbar region. Th ere is no evidence of spondylolysis or spondylolisthesis. The SI joints appear fairly well maintaine d. IMPRESSION: Moderate degenerative changes of lumbar spine RADIATION DOSE DELIVERED: Total DLP
[2020-10-18] MEDS: Ondansetron 4 MG/2 ML VIAL IVP (15:53)
[2020-10-18] MEDS: Lactobacillus Acidophilus CAP 1 CAP PO (20:17)
[2020-10-19] VITALS (7 sets, daily range): BP systolic 124–162; BP diastolic 60–119; PULSE 58–77; RESP 16–18; TEMP 36.1–36.8; O2SAT 94–97
[2020-10-19] MEDS: PIPERACILLIN/TAZO 4.5 GM in Normal Saline 100 ML IVPB ×3 (03:19→19:56)
--- NOTE | 2020-10-19 04:30 | NUR.NOTE ---
Patient transferred from the ICU this morning. She is alert and oriented x3. Denies having any pain or discomfort at this time. Patient is independent at baseline. Assessment done and charted.
[2020-10-19] MEDS: Levothyroxine 100 MCG TAB PO (07:04)
[2020-10-19 07:28] LABS: Abs Immature Grans 0.03 10^3/uL (0.0-0.06); Absolute Basophil Count 0.01 10^3/uL (0.0-0.2); Absolute Eosinophil Count 0.39 10^3/uL (0.0-0.7); Absolute Lymphocyte Count 1.43 10^3/uL (1.2-3.4); Absolute Monocyte Count 0.35 10^3/uL (0.1-0.8); Absolute Neutrophil Count 2.83 10^3/uL (1.2-6.7); Basophils % 0.2; Eosinophils % 7.7; HCT 37.2 % (36.0-46.0); HGB 12.4 g/dL (11.2-15.7); Immature Grans % 0.6; Lymphocytes % 28.4; MCH 31.6 pg (27.0-33.0); MCHC 33.3 % (32.0-36.0); MCV 94.7 fL (80-95); MPV 9.7 fL (8.0-11.0); Monocytes % 6.9; Neutrophils % 56.2; Nucleated RBC 0 %; Platelet Count 219 10^3/uL (130-400); RBC 3.93 10^6/uL (3.93-5.22); RDW 15.2 % (11.7-14.6); RDW-SD 53.2 fL; WBC 5.04 10^3/uL (4.4-10.8)
[2020-10-19 07:47] LABS: ALT 136 U/L (14-59); AST 111 U/L (15-37); Alkaline Phosphatase 493 U/L (46-116); Anion Gap 9.8 mmol/L (3-11); BUN 7 mg/dL (7-18); Bilirubin, Total 1.1 mg/dL (0.2-1.0); C-Reactive Protein 10.27 mg/dL (0.0-0.3); CO2 27.2 mmol/L (21.0-32.0); CREATININE 0.7 mg/dL (0.55-1.02); Calcium 9.3 mg/dL (8.5-10.1); Chloride 102 mmol/L (98-107); Glucose 102 mg/dL (74-106); Potassium 3.7 mmol/L (3.5-5.1); Sodium 139 mmol/L (136-145); Total Protein 7.8 g/dL (6.4-8.2)
[2020-10-19] MEDS: FLUoxetine 20 MG CAP PO (07:47)
[2020-10-19] MEDS: Mirabegron 25 MG TABCR PO (07:47)
[2020-10-19] MEDS: Lactobacillus Acidophilus CAP 1 CAP PO ×3 (07:48→19:55)
[2020-10-19] MEDS: Ondansetron 4 MG/2 ML VIAL IVP (10:39)
[2020-10-19] MEDS: Normal Saline Flush 10 ML SYR IVP ×3 (10:40→19:56)
[2020-10-19] MEDS: Enoxaparin 40 MG/0.4 ML SYR SC (12:04)
--- NOTE | 2020-10-19 16:09 | CHAPLAIN ---
Gale and I know each other from when her mother was a patient here several years ago. Gale explained that she has pancreatic cancer that was discovered in May, shortly after her sister . Gale had been caring for her sister. She's had chemo therapy and is scheduled to start radiation soon Gale's tommy is very important to her and she believes that we are given strength when we are dealing with difficult situations. Her body will heal, or she will receive a new, glorified body in [facility], she told me. She has two daughters and both are nurses. They keep in touch often and call in to her oncology appointments with Dr. Mallory.
--- NOTE | 2020-10-19 17:25 | CMPROGNOTE_ITS ---
Care Management Progress Note S/O: Gale was sitting up in her chair when CM met with her, her , Quan was sitting with her as well. The couple was talkative and fully engaged. Gale requested this specification writer make copies of her COVID card to provide to Gretta Caceres. She also inquired about her daughter being able to visit after hours; CM provided patient education central to current visitor policy. She shares no additional concerns at this time and reports being content with her care and treatment plan. CM continues to follow. A: 80 year old female admitted to [facility] 10/17/20 with back pain, fever P: Gale will return home when ready per MD. She will follow up with her PCP and plan of care as prescribed. She will transport via private vehicle with her , Quan.
--- NOTE | 2020-10-19 18:03 | W.PM.PROGNOT ---
Date of Service Date of service: 10/19/20 Time of Service: 18:03 Assessment and Plan Assessment and plan (1) Gram negative sepsis: Status: Acute Assessment and plan: Sepsis has resolved and she is responding to Zosyn treatment for Klebsiella oxytoca bacteremia most likely caused by her ERCP and placement of her gold markers for radiation of her pancreas. She will continue the Zosyn until her blood cultures show no growth at which point we will transition over to oral antibiotics for another week. (2) Back pain: Status: Acute Assessment and plan: She has DJD per her x-ray. Back pain is much better today and seems to be controlled with tramadol and ibuprofen Qualifiers: Back pain location: low back pain Chronicity: acute Back pain laterality: midline Sciatica presence: without sciatica Qualified Code(s): M54.5 - Low back pain (3) Transaminitis: Status: Acute Assessment and plan: improving but not resolved. (4) Adenocarcinoma of head of pancreas: Status: Acute Assessment and plan: Radiation therapy has to be delayed for a week while she completes antibiotic treatment (5) DVT prophylaxis: Status: Acute Assessment and plan: Continue enoxaparin Subjective Subjective Interval history since last seen: Mrs. Andino is doing well. She had a little bit of nausea earlier today but that has settled. She has no abdominal pain or back pain. She remains afebrile. Blood cultures were positive for Klebsiella oxytocin for which she is currently receiving IV Zosyn. Repeat blood cultures were obtained this morning and once we can ascertain that they are negative she can be discharged home on oral antibiotic for another week. Unfortunately she had to miss her radiation oncology appointment in which they were going to do a trial run with the radiation equipment. She has a follow-up with her medical oncologist Dr. Mallory this Saturday. I expect to be able to discharge her tomorrow once we can be sure that her blood cultures are negative. Exam Narrative Exam Narrative: Pleasant elderly female sitting up in her bed. Abdominal exam is soft nontender nondistended Objective Last Vital Signs Temp 36.5 C 10/19/20 15:36 Pulse 60 10/19/20 15:36 Resp 17 10/19/20 15:36 BP 130/60 10/19/20 15:36 Pulse Ox 97 10/19/20 15:36 Laboratory Results - last 24 hr 10/19/20 10/19/20 07:05 07:05 WBC 5.04 RBC 3.93 Hgb 12.4 Hct 37.2 MCV 94.7 MCH 31.6 MCHC 33.3 RDW 15.2 H Plt Count 219 MPV 9.7 Immature Gran % 0.6 Neutrophils % 56.2 Lymphocytes % 28.4 Monocytes % 6.9 Eosinophils % 7.7 Basophils % 0.2 Nucleated RBC % 0 Absolute Neutrophils 2.83 Absolute Lymphocytes 1.43 Absolute Monocytes 0.35 Absolute Eosinophils 0.39 Absolute Basophils 0.01 Sodium 139 Potassium 3.7 Chloride 102 Carbon Dioxide 27.2 Anion Gap 9.8 BUN 7 Creatinine 0.7 Estimated GFR/1.73 m2 >= 60.00 Glucose 102 Calcium 9.3 Total Bilirubin 1.1 H AST 111 H ALT 136 H Alkaline Phosphatase 493 H C-Reactive Protein 10.27 H Total Protein 7.8 Albumin 3.0 L Reviewed Pertinent PMH: Yes Objective Narrative Objective Narrative: Repeat CBC shows resolution of her leukocytosis. White count is 5000. CMP shows normal electrolytes and normal renal function but persistently elevated LFTs. X-ray of her lumbar spine showed moderate degenerative changes. Abdominal ultrasound showed cholelithiasis but no acute cholecystitis changes. Repeat blood cultures were obtained this morning and results are pending.
[2020-10-19] MEDS: Ibuprofen 400 MG TAB PO (23:39)
[2020-10-20] MEDS: PIPERACILLIN/TAZO 4.5 GM in Normal Saline 100 ML IVPB ×2 (04:27→12:09)
[2020-10-20] MEDS: Levothyroxine 100 MCG TAB PO (06:45)
[2020-10-20 07:31] VITALS: BP 124/66; PULSE 68; RESP 17; TEMP 36.5; O2SAT 97
[2020-10-20 07:32] LABS: ALT 138 U/L (14-59); AST 113 U/L (15-37); Albumin 2.8 g/dL (3.4-5.0); Alkaline Phosphatase 521 U/L (46-116); Anion Gap 8.9 mmol/L (3-11); BUN 10 mg/dL (7-18); C-Reactive Protein 6.78 mg/dL (0.0-0.3); CO2 27.1 mmol/L (21.0-32.0); CREATININE 0.7 mg/dL (0.55-1.02); Calcium 9.1 mg/dL (8.5-10.1); Chloride 103 mmol/L (98-107); Glucose 107 mg/dL (74-106); Potassium 3.4 mmol/L (3.5-5.1); Sodium 139 mmol/L (136-145); Total Protein 7.3 g/dL (6.4-8.2)
[2020-10-20 07:52] LABS: Procalcitonin 1.1 ng/mL
[2020-10-20] MEDS: FLUoxetine 20 MG CAP PO (07:59)
[2020-10-20] MEDS: Lactobacillus Acidophilus CAP 1 CAP PO ×2 (07:59→14:35)
[2020-10-20] MEDS: Mirabegron 25 MG TABCR PO (07:59)
--- NOTE | 2020-10-20 11:21 | PDOC.CMDIS ---
LACE Index Scoring Tool - Questions: Length of Stay (in days): 3 Acuity (Admit via E.D.?): Yes Comorbidities: Any Tumor E.D. Visits: 3 - Answers: Total Score: 11 Risk of Readmission: High Risk Care Management Discharge Reason for Hospitalization: Back Pain, Fever Discharge Plan: Gale will return home when ready per MD. She will follow up with her PCP and plan of care as prescribed. She will transport via private vehicle with her , Quan. Patient/Family Education Needs: Review discharge instructions, discuss Ask Me Three.
[2020-10-20] MEDS: Enoxaparin 40 MG/0.4 ML SYR SC (12:09)
--- NOTE | 2020-10-20 14:38 | W.PM.DS.N ---
Date of service: 10/20/20 Time of Service: 14:38 DS: Diagnosis Discharge Diagnosis (1) Klebsiella sepsis: Status: Resolved Asessment and Plan: patient completed 4 days of Zosyn 4.5 gm slow infusion Q8h. she will be sent home on 10 day course of Levaquin 750 mg daily. Her repeat blood cultures from 10/18 showed no growth. (2) Gram negative sepsis: Status: Resolved (3) Back pain: Status: Chronic Asessment and Plan: patient's back pain improved w/ NSAID's. Her xray of her lumbar spine shows DJD but no mets. (4) Transaminitis: Status: Acute Asessment and Plan: Her transaminitis never completely resolved although her AST and ALT had improved. Her bilirubin remained normal and her imgaing of her abdomen (CT scan and US) showed no abscess nor acute biliary obstruction and no cholelithiasis or choledocholithiasis. A repeat CMP is ordered for next week. If this persists then she should follow up w/ her heme/onc and GI physicians. (5) Adenocarcinoma of head of pancreas: Status: Chronic Asessment and Plan: follow up w/ Dr. Mallory tomorrow. Discharge Plan Disposition Patient Disposition: HOME Condition: Improving Discharge Details Reason For Visit: BACK PAIN, FEVER Admit Date/Time: 10/17/20 18:37 Admit Provider: Ramos Middleton Attending Provider: Ramos Middleton [facility] Course: 80-year-old female with history of pancreatic cancer status post biliary stent who is completed chemotherapy and now underwent endoscopic implantation of gold beads for markers for radiation treatment. This was performed 3 days prior to admission. Patient reports several hours of left lower back pain but developed an acute fever of 101 along with nausea beginning a couple hours after having a whopper from [employer]. However of note shared in the same meal and had no GI symptoms. In the ER she was evaluated found to have elevated transaminases with an AST of 390, ALT 224, alkaline phosphatase 589 with a normal bilirubin 0.7 and a normal white cell count of 8400. CT scan of the abdomen and pelvis without contrast showed what appeared to be surgical clips in abnormal soft tissue mass adjacent to the pancreatic head and uncinate process. Common bile duct stent was unchanged. Gallbladder was not edematous nor was the gallbladder distended. She had unchanged appearing left lower lung nodules. Patient was admitted on observation after the obtain blood cultures. Because the patient was afebrile in the emergency department no antibiotics were started. The next morning her white cell count went up to 11,500 and her blood lactate that was elevated on admission at 2.6 tereza to 3.2. Blood cultures came back positive for gram negative rods the patient was started on IV Zosyn. Patient was hydrated with IV fluids and over the next 2 days her lactate came down to normal at 0.7 and by the following morning her white count had normalized to 4900. Nausea went away and her back pain improved. Imaging of her lumbosacral spine was obtained and no metastatic disease was seen. She has moderate DJD of her lumbosacral spine. Abdominal ultrasound was performed and showed no evidence of acute intra-abdominal process. She does have cholelithiasis but no evidence for acute cholecystitis. Patient continued to improve and repeat blood cultures were obtained on October 19, 2020 and they have since returned as showing no growth. Patient has remained afebrile throughout her hospital course and is eating a regular diet. Still has a poor appetite but no nausea or vomiting and her back pain has improved. Her initial urine culture showed no growth but her blood cultures on admission grew out Klebsiella oxytoca which was sensitive to the Zosyn that she was treated with. However it was resistant to ampicillin and ampicillin sulbactam but sensitive to ciprofloxacin and levofloxacin. Patient will be discharged home on a 10-day course of Levaquin 750 mg p.o. daily. She is to follow-up with Dr. Mallory tomorrow for her regular oncology appointment. She will follow up for her radiation treatments beginning next week. Home Meds and New Rx's Prescriptions: New levofloxacin 750 mg tablet 750 mg PO DAILY 10 Days Qty: 10 RF: 0 Lactobacillus acidophilus 1 billion cell tablet 1,000 mmu cells PO BID Qty: 60 RF: 0 Continued fluoxetine 20 mg capsule 20 mg PO DAILY RF: 0 prednisone 1 mg tablet 1 mg PO DAILY RF: 0 Myrbetriq 25 mg tablet extended release 24 hr 25 mg PO DAILY Qty: 90 RF: 4 Hold Instructions: Home Medication placed on hold at Doctor's office aspirin [Aspir-81] 81 MG tablet,delayed release (DR/EC) 81 mg PO QAM RF: 0 triamcinolone acetonide 5 GM paste 1 ea Topical PRN PRNRF: 0 estradiol [Estrace] 42.5 GM cream 1 ea VG .2X A WEEK RF: 0 hydroxyzine HCl 10 MG tablet 10 mg PO PRN PRNRF: 0 diphenhydramine HCl [NightTime Sleep Aid (diphen)] 25 MG tablet 25 mg PO PRN PRNRF: 0 diphenhydramine-acetaminophen [Tylenol PM Extra Strength] 1 EACH tablet 1 ea PO HS PRN PRNRF: 0 levothyroxine [Levoxyl] 112 MCG tablet 112 mcg PO DAILY RF: 0 sulfamethoxazole-trimethoprim 1 TAB tablet 1 ea PO BID PRNRF: 0 vitamin B complex [B-Complex] 1 EACH tablet 1 ea PO DAILY RF: 0 magnesium 250 MG tablet 1 tab PO DAILY RF: 0 coenzyme Q10 [Co Q-10] 30 MG capsule 50 mg PO DAILY RF: 0 iron 18 MG tablet 18 mg PO DAILY RF: 0 red yeast rice 600 MG capsule 600 mg PO BID RF: 0 calcium carbonate-vitamin D3 [Calcium 500 With D] 1 EACH tablet 1 ea PO DAILY RF: 0 Emergen-C 1,000 MG powder effervescent in packet 1 ea PO DAILY RF: 0 ondansetron HCl [Zofran] 4 mg tablet 4 mg PO Q6H PRNQty: 30 RF: 0 Creon 24,000-76,000 -120,000 unit capsule,delayed release(DR/EC) 2 cap PO QMEALS RF: 0 Creon 24,000-76,000 -120,000 unit capsule,delayed release(DR/EC) 1 cap PO DAILY PRN PRNRF: 0 Discharge Instructions Instructions: Sepsis (DC), Bacteremia (DC) Additional Instructions: Finish all of your levofloxacin. Avoid dairy products or antacids within a 4-hour window of taking your levofloxacin. It is recommended that you start on a probiotic while you are taking your antibiotic. Return to the emergency department if he have fever or shaking chills or intractable nausea or abdominal pain. Activity:: Activity as Tolerated Equipment/Supplies:: No Equipment Needed Diet:: Normal Diet Discharge Orders Discharge Orders: Discharge Order (Routine); Ordered 10/20/20 Ordered By: Doug Paz DS: Summary Time Spent with Patient providing and/or coordinating discharge services: Less than 30 minutes Status at Discharge Functional status at discharge: independent ambulation Overall status at discharge: patient is progressing back to baseline Mental Status: mental status grossly normal Speech and Movement: speech and movement normal Mood: congruent mood Affect: normal affect Exam Narrative Exam Narrative: Elderly female who is alert/oriented x 3, sitting up in her chair talking w/ her . She is dressed and ready to leave the hospital as soon as her last dose of Zosyn has infused. Her abdomen is soft, nontender, nondistended. Psych Mental Status: mental status grossly normal Speech and Movement: speech and movement normal Mood: congruent mood Affect: normal affect DS: Data Vitals/I&O Vitals and I&O: Vital Signs Temperature 36.5 C 10/20/20 07:31 Temperature Source Temporal Artery Scan 10/20/20 07:31 Pulse 68 10/20/20 07:31 Pulse Rhythm Regular 10/20/20 04:30 Pulse 81 10/17/20 03:40 Respiratory Rate 17 10/20/20 07:31 Respiratory Effort Non-Labored 10/20/20 04:30 Respiratory Depth Normal 10/20/20 04:30 Respiratory Pattern Normal 10/20/20 04:30 Blood Pressure 124/66 10/20/20 07:31 Blood Pressure Mean 82 10/19/20 00:28 Blood Pressure Position Supine 10/16/20 19:41 Pulse Oximetry 97 10/20/20 07:31 Oxygen Delivery Method Room Air 10/20/20 07:31 Oxygen Flow Rate 0 10/20/20 07:31 Pain Level 0 10/20/20 07:31 Intake & Output 10/19/20 10/20/20 10/20/20 23:59 11:59 23:59 Intake Total 680 / 1120 450 / 690 240 / 690 Balance 680 / 1120 450 / 690 240 / 690 Intake: IV 200 / 400 110 / 110 Oral 480 / 720 340 / 580 240 / 580 Other: Urine Color Yellow Urine Appearance Clear Clear Urine Odor None Comment pt voids independently in the bathroom Voiding Methods Toilet Data Completed and Pending Labs on day of discharge: Labs from last 24 hours 10/20/20 10/20/20 06:40 06:40 Sodium 139 Potassium 3.4 L Chloride 103 Carbon Dioxide 27.1 Anion Gap 8.9 BUN 10 Creatinine 0.7 Estimated GFR/1.73 m2 >= 60.00 Glucose 107 H Calcium 9.1 Total Bilirubin 1.0 AST 113 H ALT 138 H Alkaline Phosphatase 521 H C-Reactive Protein 6.78 H Total Protein 7.3 Albumin 2.8 L Procalcitonin 1.1 Preliminary micro results at discharge 10/19/20 07:12 Blood Culture - Preliminary Blood NO GROWTH 24 HOURS 10/19/20 07:05 Blood Culture - Preliminary Blood NO GROWTH 24 HOURS 10/16/20 20:50 Blood Culture - Preliminary Blood NO GROWTH 72 HOURS 10/16/20 21:05 Blood Culture - Preliminary Blood Klebsiella oxytoca [facility] Medical History Adenocarcinoma of head of pancreas Goals of care, counseling/discussion Hypothyroidism Palliative care patient Polymyalgia rheumatica Unintentional weight loss Surgical History H/O total cystectomy vaginal cystectomy History of benign breast biopsy Family History Sister , in 05/2020 from gastric cancer age 75 Gastric cancer Niece , age 45 Breast cancer Father , age 69 from small bowel cancer Small bowel cancer Social History Smoking/Tobacco Use Status: Former Tobacco Use Smoking risk assessment performed?: Yes Alcohol Intake: current Alcohol Intake frequency: 0-2 drinks per day Alcohol type: wine Drug use: Never Substance use type: does not use Details: CBD oil on ankle Caregiver/Support person: Yes Household members: spouse Housing: house Number of Children: 2 number of grandchildren: 3 Communication Needs: Corrective Lenses Education Level: high school Do you need help understanding health information?: Often 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; 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 Do you think of yourself as: straight/heterosexual Current gender identity: female What is your relationship status?: How often do you talk on the phone with friends or family?: three or more times per week How often do you get together with friends or relatives?: twice per week How often do you attend moravian or adventist services?: 4 or more times per year Panel score (0-1 are the most socially isolated patients): 3 What type of physical activity do you participate in: walking Duration: 15-30 minutes/day Frequency: 5-6 times per week Peyton/Restorationist: Scientology Special peyton needs: No Seatbelt use: always Working smoke detector in home: Yes Do you feel safe at home: Yes Do you feel safe in your relationship?: Yes Additional Social history: to Quan. Has 2 daughters, Nena, who is an ICU nurse and Chelsey, who is a hospice nurse. Gale is doing much better than she was when first diagnosed. Sister in May 2020; she had heart burn and dyspepsia after her . When she had weight loss too, PCP worked her up. Found pancreatic cancer in head of pancreas. NO KNOWN METS at this time. Had negative w/u for endometrial ca; stage 1 lung cancer, very slow growing rare type, found. Watching only. Plan is to go ahead with chemo and radiation, then Whipple. Gale gearing herself up for the long escobedo. Wants to hear about Act 39/Medical Aid in Dying. Just gathering information.
[2020-10-21 12:30] LABS: CA 19-9 1588 U/mL (<35)
== END 2020-10-20 16:38 | disposition home or self-care (01) | DRG 862 ==
LOC: ER 10-17 03:54 → ICU 10-17 04:24 → MS 10-19 02:57
PROVIDERS: Internal Medicine; Internal Medicine Hematology & Oncology; Admitting Provider General Practice; Emergency Provider Student in an Organized Health Care Education/Training Program; PCP Family Medicine; Visit Provider General Practice
DX: T81.44XA Sepsis following a procedure, initial encounter (principal); A41.59 Other Gram-negative sepsis; C25.0 Malignant neoplasm of head of pancreas; C34.90 Malignant neoplasm of unspecified part of unspecified bronchus or lung; T81.40XA Infection following a procedure, unspecified, initial encounter; M54.5 Low back pain; R74.01 Elevation of levels of liver transaminase levels; E03.9 Hypothyroidism, unspecified; M35.3 Polymyalgia rheumatica; Z20.822 Contact with and (suspected) exposure to COVID-19; K80.20 Calculus of gallbladder without cholecystitis without obstruction; M47.817 Spondylosis without myelopathy or radiculopathy, lumbosacral region
CPT/HCPCS: 36415; 80048; 80053; 83690; 84145; 85027; 86704; 86709; 86803; 87040; 87077; 87340; 87635; 93005; 96361; 96374; 96375; 99222; 99225; 99231; 99232; 99238; 99285; J1650; 71045; 72110; 74176; 76700; 81003; 81015; 82247; 83605; 84075; 84450; 84460; 84484; 85025; 86140; 86301; 87086; 87186; 93010; G0378; J2405; J2543

== ENCOUNTER → 2020-10-24 08:56 | Outpatient (BNVA) | payer MEDICARE, SELFPAY | PROVIDERS: PCP Family Medicine; Referring Provider Family Medicine; Visit Provider Nurse Practitioner Gerontology | DX: N39.46 Mixed incontinence (principal); C25.0 Malignant neoplasm of head of pancreas | CPT/HCPCS: 99443 ==

== ENCOUNTER 2020-10-28 10:00 | Outpatient (RCR) | payer MEDICARE, SELFPAY ==
[2020-10-07 09:06] LABS: Abs Immature Grans 0.16 10^3/uL (0.0-0.06); Absolute Basophil Count 0.09 10^3/uL (0.0-0.2); Absolute Eosinophil Count 0.32 10^3/uL (0.0-0.7); Absolute Lymphocyte Count 2.04 10^3/uL (1.2-3.4); Absolute Monocyte Count 0.68 10^3/uL (0.1-0.8); Absolute Neutrophil Count 2.03 10^3/uL (1.2-6.7); Basophils % 1.7; HCT 39.7 % (36.0-46.0); HGB 13.1 g/dL (11.2-15.7); Lymphocytes % 38.3; MCV 97.1 fL (80-95); MPV 9.1 fL (8.0-11.0); Monocytes % 12.8; Neutrophils % 38.2; Nucleated RBC 0 %; Platelet Count 258 10^3/uL (130-400); RBC 4.09 10^6/uL (3.93-5.22); RDW 15.5 % (11.7-14.6); WBC 5.32 10^3/uL (4.4-10.8)
[2020-10-07 09:20] LABS: ALT 51 U/L (14-59); AST 48 U/L (15-37); Albumin 3.3 g/dL (3.4-5.0); Alkaline Phosphatase 279 U/L (46-116); Anion Gap 8.1 mmol/L (3-11); BUN 18 mg/dL (7-18); Bilirubin, Total 0.3 mg/dL (0.2-1.0); CO2 26.9 mmol/L (21.0-32.0); CREATININE 0.7 mg/dL (0.55-1.02); Calcium 9.2 mg/dL (8.5-10.1); Chloride 101 mmol/L (98-107); Glucose 121 mg/dL (74-106); Potassium 3.9 mmol/L (3.5-5.1); Sodium 136 mmol/L (136-145); Total Protein 7.6 g/dL (6.4-8.2)
[2020-10-10 11:04] LABS: CA 19-9 1789 U/mL (<35)
[2020-10-25] MEDS: Heparin 500 UNITS/5 ML SYRINGE IV (14:43)
[2020-10-25] MEDS: Normal Saline Flush 10 ML SYR IVP (14:43)
[2020-10-25 14:56] LABS: Abs Immature Grans 0.11 10^3/uL (0.0-0.06); Absolute Basophil Count 0.06 10^3/uL (0.0-0.2); Absolute Eosinophil Count 0.38 10^3/uL (0.0-0.7); Absolute Lymphocyte Count 2.22 10^3/uL (1.2-3.4); Absolute Monocyte Count 0.53 10^3/uL (0.1-0.8); Absolute Neutrophil Count 2.75 10^3/uL (1.2-6.7); Eosinophils % 6.3; HCT 37.1 % (36.0-46.0); HGB 12.1 g/dL (11.2-15.7); Immature Grans % 1.8; Lymphocytes % 36.7; MCH 31.8 pg (27.0-33.0); MCHC 32.6 % (32.0-36.0); MCV 97.6 fL (80-95); MPV 9.4 fL (8.0-11.0); Monocytes % 8.8; Neutrophils % 45.4; Nucleated RBC 0 %; Platelet Count 392 10^3/uL (130-400); RDW 15.9 % (11.7-14.6); RDW-SD 56.7 fL; WBC 6.05 10^3/uL (4.4-10.8)
[2020-10-25 15:10] LABS: ALT 61 U/L (14-59); AST 43 U/L (15-37); Albumin 3.3 g/dL (3.4-5.0); Alkaline Phosphatase 482 U/L (46-116); Anion Gap 6.4 mmol/L (3-11); BUN 12 mg/dL (7-18); Bilirubin, Total 0.4 mg/dL (0.2-1.0); CO2 29.6 mmol/L (21.0-32.0); CREATININE 0.7 mg/dL (0.55-1.02); Chloride 101 mmol/L (98-107); Glucose 101 mg/dL (74-106); Potassium 3.8 mmol/L (3.5-5.1); Sodium 137 mmol/L (136-145); Total Protein 7.6 g/dL (6.4-8.2)
[2020-10-26 11:42] LABS: CA 19-9 1690 U/mL (<35)
== END 2020-10-28 23:59 | disposition home or self-care (01) ==
LOC: INF 10:00
PROVIDERS: PCP Family Medicine; Visit Provider Internal Medicine Hematology & Oncology
DX: C25.0 Malignant neoplasm of head of pancreas (principal); Z45.2 Encounter for adjustment and management of vascular access device
CPT/HCPCS: 36415; 36591; 80053; 85025; 86301

== ENCOUNTER 2020-10-31 02:31 | Outpatient (CLI) | payer MEDICARE, SELFPAY ==
[2020-10-31 12:45] LABS: Abs Immature Grans 0.05 10^3/uL (0.0-0.06); Absolute Basophil Count 0.06 10^3/uL (0.0-0.2); Absolute Eosinophil Count 0.25 10^3/uL (0.0-0.7); Absolute Monocyte Count 0.53 10^3/uL (0.1-0.8); Absolute Neutrophil Count 2.98 10^3/uL (1.2-6.7); Eosinophils % 4.1; HCT 39.1 % (36.0-46.0); HGB 12.9 g/dL (11.2-15.7); Immature Grans % 0.8; Lymphocytes % 36.2; MCH 32.1 pg (27.0-33.0); MCV 97.3 fL (80-95); MPV 8.9 fL (8.0-11.0); Monocytes % 8.7; Neutrophils % 49.2; Nucleated RBC 0 %; Platelet Count 368 10^3/uL (130-400); RBC 4.02 10^6/uL (3.93-5.22); RDW 15.2 % (11.7-14.6); RDW-SD 54.9 fL; WBC 6.07 10^3/uL (4.4-10.8)
[2020-10-31 13:21] LABS: Hemoglobin A1C 5.6 % (<5.7)
[2020-10-31 13:36] LABS: ALT 36 U/L (14-59); AST 31 U/L (15-37); Albumin 3.5 g/dL (3.4-5.0); Alkaline Phosphatase 287 U/L (46-116); Anion Gap 8.4 mmol/L (3-11); BUN 17 mg/dL (7-18); Bilirubin, Total 0.4 mg/dL (0.2-1.0); CO2 28.6 mmol/L (21.0-32.0); CREATININE 0.8 mg/dL (0.55-1.02); Calculated LDL 164 mg/dL (<100); Chloride 104 mmol/L (98-107); Cholesterol 249 mg/dL (<200); Glucose 126 mg/dL (74-106); HDL Cholesterol 48 mg/dL (40-60); Sodium 141 mmol/L (136-145); Total Protein 7.5 g/dL (6.4-8.2); Triglyceride 186 mg/dL (<150)
== END 2020-10-31 02:32 | disposition home or self-care (01) ==
PROVIDERS: PCP Family Medicine; Visit Provider Internal Medicine Gastroenterology
DX: K76.0 Fatty (change of) liver, not elsewhere classified (principal); E78.5 Hyperlipidemia, unspecified; R73.09 Other abnormal glucose
CPT/HCPCS: 36415; 80053; 80061; 85027; 83036; 85025

== ENCOUNTER 2020-11-25 03:50 | Outpatient (RCR) | payer MEDICARE, SELFPAY ==
[2020-11-04 12:49] LABS: Abs Immature Grans 0.02 10^3/uL (0.0-0.06); Absolute Basophil Count 0.04 10^3/uL (0.0-0.2); Absolute Eosinophil Count 0.24 10^3/uL (0.0-0.7); Absolute Lymphocyte Count 1.81 10^3/uL (1.2-3.4); Absolute Monocyte Count 0.52 10^3/uL (0.1-0.8); Absolute Neutrophil Count 3.06 10^3/uL (1.2-6.7); Basophils % 0.7; Eosinophils % 4.2; HCT 38.5 % (36.0-46.0); HGB 12.9 g/dL (11.2-15.7); Immature Grans % 0.4; Lymphocytes % 31.8; MCH 31.9 pg (27.0-33.0); MCHC 33.5 % (32.0-36.0); MCV 95.3 fL (80-95); MPV 8.9 fL (8.0-11.0); Monocytes % 9.1; Neutrophils % 53.8; Nucleated RBC 0 %; Platelet Count 273 10^3/uL (130-400); RBC 4.04 10^6/uL (3.93-5.22); RDW 14.6 % (11.7-14.6); RDW-SD 51.5 fL; WBC 5.69 10^3/uL (4.4-10.8)
[2020-11-04 13:17] LABS: ALT 44 U/L (14-59); AST 47 U/L (15-37); Albumin 3.5 g/dL (3.4-5.0); Alkaline Phosphatase 268 U/L (46-116); Anion Gap 10.4 mmol/L (3-11); BUN 19 mg/dL (7-18); Bilirubin, Total 0.5 mg/dL (0.2-1.0); CO2 24.6 mmol/L (21.0-32.0); CREATININE 0.7 mg/dL (0.55-1.02); Calcium 9.1 mg/dL (8.5-10.1); Chloride 102 mmol/L (98-107); Glucose 114 mg/dL (74-106); Potassium 3.9 mmol/L (3.5-5.1); Sodium 137 mmol/L (136-145); Total Protein 7.9 g/dL (6.4-8.2)
[2020-11-11] MEDS: Normal Saline Flush 10 ML SYR IVP (12:43)
[2020-11-11] MEDS: Heparin 500 UNITS/5 ML SYRINGE IV (12:43)
[2020-11-11 12:49] LABS: Abs Immature Grans 0.03 10^3/uL (0.0-0.06); Absolute Basophil Count 0.02 10^3/uL (0.0-0.2); Absolute Eosinophil Count 0.23 10^3/uL (0.0-0.7); Absolute Lymphocyte Count 1.11 10^3/uL (1.2-3.4); Absolute Monocyte Count 0.48 10^3/uL (0.1-0.8); Absolute Neutrophil Count 2.79 10^3/uL (1.2-6.7); Basophils % 0.4; Eosinophils % 4.9; HCT 36.4 % (36.0-46.0); HGB 12.2 g/dL (11.2-15.7); Immature Grans % 0.6; Lymphocytes % 23.8; MCH 32.2 pg (27.0-33.0); MCHC 33.5 % (32.0-36.0); MPV 8.9 fL (8.0-11.0); Monocytes % 10.3; Nucleated RBC 0 %; Platelet Count 237 10^3/uL (130-400); RBC 3.79 10^6/uL (3.93-5.22); RDW 14.3 % (11.7-14.6); RDW-SD 50.5 fL; WBC 4.66 10^3/uL (4.4-10.8)
[2020-11-11 13:11] LABS: ALT 33 U/L (14-59); AST 35 U/L (15-37); Albumin 3.5 g/dL (3.4-5.0); Alkaline Phosphatase 221 U/L (46-116); Anion Gap 7.8 mmol/L (3-11); BUN 17 mg/dL (7-18); Bilirubin, Total 0.6 mg/dL (0.2-1.0); CO2 28.2 mmol/L (21.0-32.0); CREATININE 0.6 mg/dL (0.55-1.02); Calcium 8.9 mg/dL (8.5-10.1); Chloride 101 mmol/L (98-107); Glucose 125 mg/dL (74-106); Sodium 137 mmol/L (136-145); Total Protein 7.8 g/dL (6.4-8.2)
[2020-11-18] MEDS: Heparin 500 UNITS/5 ML SYRINGE IV (12:46)
[2020-11-18] MEDS: Normal Saline Flush 10 ML SYR IVP (12:46)
[2020-11-18 12:59] LABS: Abs Immature Grans 0.03 10^3/uL (0.0-0.06); Absolute Basophil Count 0.02 10^3/uL (0.0-0.2); Absolute Eosinophil Count 0.27 10^3/uL (0.0-0.7); Absolute Lymphocyte Count 0.82 10^3/uL (1.2-3.4); Absolute Monocyte Count 0.52 10^3/uL (0.1-0.8); Absolute Neutrophil Count 2.79 10^3/uL (1.2-6.7); Basophils % 0.4; Eosinophils % 6.1; HCT 35.6 % (36.0-46.0); Immature Grans % 0.7; Lymphocytes % 18.4; MCH 32.3 pg (27.0-33.0); MCHC 33.7 % (32.0-36.0); MPV 9.3 fL (8.0-11.0); Monocytes % 11.7; Neutrophils % 62.7; Nucleated RBC 0 %; Platelet Count 211 10^3/uL (130-400); RBC 3.71 10^6/uL (3.93-5.22); RDW 14.9 % (11.7-14.6); RDW-SD 51.6 fL; WBC 4.45 10^3/uL (4.4-10.8)
[2020-11-18 13:05] LABS: ALT 28 U/L (14-59); AST 32 U/L (15-37); Albumin 3.6 g/dL (3.4-5.0); Alkaline Phosphatase 168 U/L (46-116); Anion Gap 7.4 mmol/L (3-11); BUN 16 mg/dL (7-18); Bilirubin, Total 0.7 mg/dL (0.2-1.0); CO2 28.6 mmol/L (21.0-32.0); CREATININE 0.6 mg/dL (0.55-1.02); Calcium 8.8 mg/dL (8.5-10.1); Chloride 102 mmol/L (98-107); Glucose 121 mg/dL (74-106); Potassium 4.1 mmol/L (3.5-5.1); Sodium 138 mmol/L (136-145); Total Protein 7.7 g/dL (6.4-8.2)
[2020-11-21 12:13] LABS: CA 19-9 1701 U/mL (<35)
[2020-11-25] MEDS: Heparin 500 UNITS/5 ML SYRINGE IV (12:43)
[2020-11-25] MEDS: Normal Saline Flush 10 ML SYR IVP (12:43)
[2020-11-25 13:09] LABS: Abs Immature Grans 0.02 10^3/uL (0.0-0.06); Absolute Basophil Count 0.02 10^3/uL (0.0-0.2); Absolute Lymphocyte Count 0.48 10^3/uL (1.2-3.4); Absolute Monocyte Count 0.45 10^3/uL (0.1-0.8); Basophils % 0.6; Eosinophils % 6.1; HCT 34.7 % (36.0-46.0); HGB 11.6 g/dL (11.2-15.7); Immature Grans % 0.6; Lymphocytes % 14.7; MCH 32.8 pg (27.0-33.0); MCHC 33.4 % (32.0-36.0); MPV 9.2 fL (8.0-11.0); Monocytes % 13.8; Neutrophils % 64.2; Nucleated RBC 0 %; Platelet Count 174 10^3/uL (130-400); RBC 3.54 10^6/uL (3.93-5.22); RDW 15.6 % (11.7-14.6); RDW-SD 55.1 fL; WBC 3.27 10^3/uL (4.4-10.8)
[2020-11-25 13:24] LABS: ALT 29 U/L (14-59); AST 32 U/L (15-37); Albumin 3.1 g/dL (3.4-5.0); Alkaline Phosphatase 160 U/L (46-116); Anion Gap 4.4 mmol/L (3-11); BUN 12 mg/dL (7-18); Bilirubin, Total 0.5 mg/dL (0.2-1.0); CO2 29.6 mmol/L (21.0-32.0); CREATININE 0.6 mg/dL (0.55-1.02); Calcium 8.6 mg/dL (8.5-10.1); Chloride 104 mmol/L (98-107); Glucose 122 mg/dL (74-106); Potassium 3.8 mmol/L (3.5-5.1); Sodium 138 mmol/L (136-145); Total Protein 7.1 g/dL (6.4-8.2)
[2020-11-28 13:35] LABS: CA 19-9 1462 U/mL (<35)
== END 2020-11-28 23:59 | disposition home or self-care (01) ==
LOC: INF 03:50
PROVIDERS: PCP Family Medicine; Visit Provider Internal Medicine Hematology & Oncology
DX: C25.0 Malignant neoplasm of head of pancreas (principal); Z45.2 Encounter for adjustment and management of vascular access device
CPT/HCPCS: 36415; 36591; 80053; 85025; 86301

== ENCOUNTER 2020-12-12 02:17 | Outpatient (RCR) | payer MEDICARE, SELFPAY ==
[2020-12-02] MEDS: Normal Saline Flush 10 ML SYR IVP (13:04)
[2020-12-02] MEDS: Heparin 500 UNITS/5 ML SYRINGE IV (13:05)
[2020-12-02 13:09] LABS: Abs Immature Grans 0.02 10^3/uL (0.0-0.06); Absolute Basophil Count 0.02 10^3/uL (0.0-0.2); Absolute Lymphocyte Count 0.47 10^3/uL (1.2-3.4); Absolute Monocyte Count 0.54 10^3/uL (0.1-0.8); Basophils % 0.6; HCT 33.6 % (36.0-46.0); HGB 11.4 g/dL (11.2-15.7); Immature Grans % 0.6; MCH 33.1 pg (27.0-33.0); MCHC 33.9 % (32.0-36.0); MCV 97.7 fL (80-95); MPV 9.1 fL (8.0-11.0); Monocytes % 16.1; Neutrophils % 59.7; Nucleated RBC 0 %; Platelet Count 182 10^3/uL (130-400); RBC 3.44 10^6/uL (3.93-5.22); RDW 16.6 % (11.7-14.6); RDW-SD 58.9 fL; WBC 3.35 10^3/uL (4.4-10.8)
[2020-12-02 13:30] LABS: ALT 43 U/L (14-59); AST 54 U/L (15-37); Alkaline Phosphatase 235 U/L (46-116); Anion Gap 5.3 mmol/L (3-11); BUN 8 mg/dL (7-18); Bilirubin, Total 0.6 mg/dL (0.2-1.0); CO2 28.7 mmol/L (21.0-32.0); CREATININE 0.6 mg/dL (0.55-1.02); Calcium 8.5 mg/dL (8.5-10.1); Chloride 102 mmol/L (98-107); Glucose 94 mg/dL (74-106); Potassium 3.9 mmol/L (3.5-5.1); Sodium 136 mmol/L (136-145)
[2020-12-05 13:24] LABS: CA 19-9 1276 U/mL (<35)
[2020-12-12] MEDS: Normal Saline Flush 10 ML SYR IVP (08:24)
[2020-12-12 08:48] LABS: Abs Immature Grans 0.03 10^3/uL (0.0-0.06); Absolute Basophil Count 0.02 10^3/uL (0.0-0.2); Absolute Eosinophil Count 0.29 10^3/uL (0.0-0.7); Absolute Lymphocyte Count 0.33 10^3/uL (1.2-3.4); Absolute Monocyte Count 0.42 10^3/uL (0.1-0.8); Absolute Neutrophil Count 1.81 10^3/uL (1.2-6.7); Basophils % 0.7; HCT 36.7 % (36.0-46.0); HGB 12.2 g/dL (11.2-15.7); Lymphocytes % 11.4; MCH 33.6 pg (27.0-33.0); MCHC 33.2 % (32.0-36.0); MCV 101.1 fL (80-95); MPV 9.1 fL (8.0-11.0); Monocytes % 14.5; Neutrophils % 62.4; Nucleated RBC 0 %; Platelet Count 196 10^3/uL (130-400); RBC 3.63 10^6/uL (3.93-5.22); RDW 17.4 % (11.7-14.6); RDW-SD 63.7 fL
[2020-12-12 09:03] LABS: ALT 27 U/L (14-59); AST 42 U/L (15-37); Alkaline Phosphatase 218 U/L (46-116); Anion Gap 7.7 mmol/L (3-11); BUN 12 mg/dL (7-18); Bilirubin, Total 0.7 mg/dL (0.2-1.0); CO2 27.3 mmol/L (21.0-32.0); CREATININE 0.6 mg/dL (0.55-1.02); Calcium 8.7 mg/dL (8.5-10.1); Chloride 103 mmol/L (98-107); Glucose 136 mg/dL (74-106); Potassium 3.7 mmol/L (3.5-5.1); Sodium 138 mmol/L (136-145); Total Protein 6.9 g/dL (6.4-8.2)
[2020-12-14 10:35] LABS: CA 19-9 866 U/mL (<35)
== END 2020-12-28 23:59 | disposition home or self-care (01) ==
LOC: INF 02:17
PROVIDERS: PCP Family Medicine; Visit Provider Internal Medicine Hematology & Oncology
DX: C25.0 Malignant neoplasm of head of pancreas (principal); Z45.2 Encounter for adjustment and management of vascular access device
CPT/HCPCS: 36591; 80053; 85025; 86301

== ENCOUNTER → 2021-01-24 09:55 | Outpatient (BNVA) | payer MEDICARE, SELFPAY | PROVIDERS: PCP Family Medicine; Referring Provider Family Medicine; Visit Provider Nurse Practitioner Gerontology | DX: N39.46 Mixed incontinence (principal) | CPT/HCPCS: 99213 ==

== ENCOUNTER 2021-03-24 05:30 | Outpatient (RCR) | payer MEDICARE, SELFPAY ==
[2021-03-24] MEDS: Heparin 500 UNITS/5 ML SYRINGE IV (13:12)
[2021-03-24] MEDS: Normal Saline Flush 10 ML SYR IVP (13:13)
== END 2021-03-30 23:59 | disposition home or self-care (01) ==
LOC: INF 05:30
PROVIDERS: PCP Family Medicine; Visit Provider Internal Medicine Hematology & Oncology
DX: Z45.2 Encounter for adjustment and management of vascular access device (principal)
CPT/HCPCS: 96523

== ENCOUNTER 2021-04-27 01:14 | Outpatient (CLI) | payer MEDICARE, SELFPAY ==
[2021-04-27] MEDS: Breeza Beverage 473 ML BTL 946 ML PO (11:19)
[2021-04-27] MEDS: Omnipaque 350 MG/ML 100 ML BTL IJ (11:20)
--- NOTE | 2021-04-27 11:20 | DI.CT_ITS ---
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 TECHNIQUE: Imaging Protocol: Axial computed tomography images with coronal and sagittal reformatted images were created and reviewed CONTRAST MATERIAL: Intravenous: Omnipaque 350 Contrast volume:100 ml Oral: Yes COMPARISON: CT CT CHEST/ABD/PEL W from 06/07/2020 FINDINGS: CHEST: LUNGS: No new left lung the previously described 1.4 cm mass has not increased in size. However, jus t above this level is a 1.8 by 0.4 cm density in the left lower lobe which does not have the typical appearance of a metastatic nodule but which was not previously present. Perhaps representing channel from prior biopsy of the 1.4 cm nodule. There are no other significant focal left lung findings nor pleural effusion. There are no new significant focal findings in the opposite-right lung. There is an unchanged 3 millimeter pleural base nodule in the lateral aspect the right upper lobe which is un changed from 06/07/2020 CT scan.. There are no pleural effusions on either side. No significant foc al findings in the trachea and mainstem bronchi Distal tip of the right supra clavi in Port-A-Cath is in the lower SVC. MEDIASTINUM: There is no hil ar nor mediastinal adenopathy. CARDIAC: Heart size is upper normal. There is no pericardial effusion.Caliber of the thoracic aorta is within normal limits. OSSEOUS: No significant osseous lesions.. ABDOMEN: There is no ascites. There has been interval surgery. Removal of pancreatic head. Previously present CBD stent is no collin taj evident. There appears to have been biliary enterostomy. There is a percutaneous jejunostomy tu be. LIVER: There are no focal hepatic lesions nor dilatation of intrahepatic ducts. GALLBLADDER/BILIARY: Structure in the gallbladder fossa difficult to determine gallbladder fossa with hyperdense bile versus other structure at this location. PANCREAS: There is a mass subjacent to the celiac and superior mesenteric arteries in the region of multiple cl ips, this being the area of the original neoplasm as seen on CT scan of 06/07/2020. Mass density at this location at this time measures 2.5 cm AP, elevating the portal vein confluence anteriorly and co mpressing the pre aortic left renal vein posteriorly. The patent superior mesenteric artery is skirt ing the lateral left aspect of this mass. This mass has the appearance of probable current neoplasti c tissue at the location of the original neoplasm, as seen on the CT scan of 06/07/2020. The pancreatic body and tail are still present. There is density in the region the pancreatic neck w hich may also be pancreatic tissue. SPLEEN: Spleen is not enlarged. There are no intrasplenic lesions. Splenic and portal veins are chi nt, although the portal vein confluence is elevated by this mass. The superior mesenteric vein is de monstrated to be patent, also contiguous to this mass ADRENALS: There are no significant adrenal masses. KIDNEYS: No calculi nor hydronephrosis. No solid renal masses. No cysts evident. ABDOMINAL AORTA: Calcified but not enlarged. LYMPH NODES: There is no prominent para-aortic adenopathy. ABDOMINAL WALL: Midline hernias at site of midline incision surgery. Does not contain entrapped juan l loops. Oral contrast has progressed to the level: GI: There is no evidence of bowel obstruction. PELVIS: LYMPH NODES: There is no intrapelvic nor inguinal adenopathy. GI: No evidence of appendicitis.Sigmoid diverticuli. No obvious acute diverticulitis. URINARY BLADDER: No calculi nor masses evident REPRODUCTIVE: Age-appropriate OSSEOUS: No significant osseous lesions. IMPRESSION: 1. There is now evidence of interval surgery since the CT scan September 2020. However, in the region of the original uncinate process mass (where there presently multiple surgical clips) there is a concer misha mass now evident which measures approximately 2.5 cm AP x 1.8 cm wide x 3 cm craniocaudal, this suspicious for recurrence neoplastic tissue at this site of the original neoplasm. This too appears to partially encase the superior mesenteric artery (which is patent), but not the celiac artery. The portal venous confluence is just anterior to the mass, slightly deviated anteriorly, and the left re nal vein is immediately posterior to this mass, slightly compressed. Both these vessels remain paten t. 2. There is a left of center percutaneous jejunostomy tube. 3. Stable appearance of the previously described 1.4 cm nodule in the left lower lobe. In the same a reas a linear nodular density which was not previously evident but does not have typical appearance o f a metastatic nodule. I suspect that it may be possible sequela of a biopsy of the 1.4 cm nodule in the left lower lobe. There are no new pulmonary nodules and there are no pleural effusions. 4. RADIATION DOSE DELIVERED: 1,624.89mGy.cm Total DLP DATA REPOSITORY: All CT scans at this facility are submitted to the National Radiology Data Registry (NRDR) Dose Index Registry (DIR) with the [employer] (ACR). RADIATION OPTIMIZATION: All CT scans at this facility use at least one of these dose optimization te chniques: automated exposure control; mA and/or kV adjustment per patient size (includes targeted exa ms where dose is matched to clinical indication); or iterative reconstruction.
[2021-04-27] MEDS: Omnipaque 350 MG/ML 50 ML BTL IJ (11:21)
== END 2021-04-27 01:34 ==
PROVIDERS: PCP Family Medicine; Visit Provider Internal Medicine Hematology & Oncology
DX: C25.0 Malignant neoplasm of head of pancreas (principal); R97.8 Other abnormal tumor markers; R93.5 Abnormal findings on diagnostic imaging of other abdominal regions, including retroperitoneum
CPT/HCPCS: 36591; 74177; 80053; 71260; 82607; 82728; 82746; 83540; 83550; 85025; 86301; J3490; Q9967

== ENCOUNTER 2021-04-27 01:41 | Outpatient (RCR) | payer MEDICARE, SELFPAY ==
[2021-04-14] MEDS: Normal Saline Flush 10 ML SYR IVP (12:58)
[2021-04-14] MEDS: Heparin 500 UNITS/5 ML SYRINGE IV (12:58)
[2021-04-14 12:59] LABS: Abs Immature Grans 0.03 10^3/uL (0.0-0.06); Absolute Basophil Count 0.03 10^3/uL (0.0-0.2); Absolute Eosinophil Count 0.22 10^3/uL (0.0-0.7); Absolute Lymphocyte Count 1.14 10^3/uL (1.2-3.4); Absolute Monocyte Count 0.45 10^3/uL (0.1-0.8); Absolute Neutrophil Count 2.53 10^3/uL (1.2-6.7); Basophils % 0.7; HCT 29.2 % (36.0-46.0); HGB 9.5 g/dL (11.2-15.7); Immature Grans % 0.7; Lymphocytes % 25.9; MCHC 32.5 % (32.0-36.0); MCV 92.1 fL (80-95); MPV 8.8 fL (8.0-11.0); Monocytes % 10.2; Neutrophils % 57.5; Nucleated RBC 0 %; Platelet Count 316 10^3/uL (130-400); RBC 3.17 10^6/uL (3.93-5.22); RDW 14.9 % (11.7-14.6); RDW-SD 50.6 fL
[2021-04-14 13:10] LABS: ALT 56 U/L (14-59); AST 41 U/L (15-37); Albumin 3.2 g/dL (3.4-5.0); Alkaline Phosphatase 370 U/L (46-116); BUN 19 mg/dL (7-18); Bilirubin, Total 0.3 mg/dL (0.2-1.0); CREATININE 0.6 mg/dL (0.55-1.02); Calcium 8.4 mg/dL (8.5-10.1); Chloride 100 mmol/L (98-107); Glucose 129 mg/dL (74-106); Sodium 135 mmol/L (136-145); Total Protein 7.9 g/dL (6.4-8.2)
[2021-04-17 12:14] LABS: CA 19-9 1468 U/mL (<35)
[2021-04-27] MEDS: Normal Saline Flush 10 ML SYR IVP (09:21)
[2021-04-27] MEDS: Heparin 500 UNITS/5 ML SYRINGE IV (09:21)
[2021-04-27 09:40] LABS: Abs Immature Grans 0.01 10^3/uL (0.0-0.06); Absolute Basophil Count 0.04 10^3/uL (0.0-0.2); Absolute Eosinophil Count 0.16 10^3/uL (0.0-0.7); Absolute Lymphocyte Count 1.25 10^3/uL (1.2-3.4); Absolute Monocyte Count 0.35 10^3/uL (0.1-0.8); Absolute Neutrophil Count 2.82 10^3/uL (1.2-6.7); Basophils % 0.9; Eosinophils % 3.5; HCT 31.6 % (36.0-46.0); HGB 10.3 g/dL (11.2-15.7); Immature Grans % 0.2; MCH 29.9 pg (27.0-33.0); MCHC 32.6 % (32.0-36.0); MCV 91.9 fL (80-95); MPV 8.8 fL (8.0-11.0); Monocytes % 7.6; Neutrophils % 60.8; Nucleated RBC 0 %; Platelet Count 343 10^3/uL (130-400); RBC 3.44 10^6/uL (3.93-5.22); RDW 14.4 % (11.7-14.6); RDW-SD 48.8 fL; WBC 4.63 10^3/uL (4.4-10.8)
[2021-04-27 09:56] LABS: ALT 38 U/L (14-59); AST 33 U/L (15-37); Albumin 3.6 g/dL (3.4-5.0); Alkaline Phosphatase 342 U/L (46-116); Anion Gap 10.3 mmol/L (3-11); BUN 20 mg/dL (7-18); Bilirubin, Total 0.4 mg/dL (0.2-1.0); CO2 25.7 mmol/L (21.0-32.0); CREATININE 0.6 mg/dL (0.55-1.02); Calcium 8.7 mg/dL (8.5-10.1); Chloride 102 mmol/L (98-107); Glucose 111 mg/dL (74-106); Potassium 3.8 mmol/L (3.5-5.1); Sodium 138 mmol/L (136-145); Total Protein 8.2 g/dL (6.4-8.2)
[2021-04-27 10:01] LABS: Iron 63 ug/dL (50-170); Total Iron Binding Capacity 314 ug/dL (250-450); Transferrin Sat 20 % (15-50)
[2021-04-27 10:34] LABS: Ferritin 105 ng/mL (8-252); Vitamin B12 981 pg/mL (193-986)
[2021-04-27 10:35] LABS: Folate > 20.0 ng/mL (8.6-20.0)
[2021-04-28 11:02] LABS: CA 19-9 1635 U/mL (<35)
== END 2021-04-30 23:59 | disposition home or self-care (01) ==
LOC: INF 01:41
PROVIDERS: PCP Family Medicine; Visit Provider Internal Medicine Hematology & Oncology
DX: C25.0 Malignant neoplasm of head of pancreas (principal); Z45.2 Encounter for adjustment and management of vascular access device
CPT/HCPCS: 36591; 80053; 82607; 82728; 82746; 83540; 83550; 85025; 86301

== ENCOUNTER 2021-07-04 00:55 | Outpatient (CLI) | payer MEDICARE, SELFPAY ==
[2021-07-04] MEDS: Omnipaque 350 MG/ML 50 ML BTL PO (07:32)
[2021-07-04] MEDS: Breeza Beverage 473 ML BTL PO ×2 (07:33)
[2021-07-04] MEDS: Omnipaque 350 MG/ML 100 ML BTL IJ (09:18)
--- NOTE | 2021-07-04 09:20 | DI.CT_ITS ---
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 Pulmonary parenchyma: There is a 0.4 cm ground-glass nodule in the posterior aspect of the right uppe r lobe. There has been interval increase in size of the nodule in the left upper lung. It measures 1.2 x 1.1 cm. This compares to 0.9 x 0.7 cm. There is again seen a 1.5 cm nodule in the left lower lobe. No focal consolidating infiltrates. Scarring is seen in the lung apices bilaterally. Visualized thyroid gland: Not well visualized. Mediastinum and Ela: No dominant adenopathy or fluid collection. Small hiatal hernia. Esophagus is otherwise unremarkable. Pleura: No effusion or pneumothorax. Heart: Mild cardiomegaly. No coronary artery calcifications are seen. No pericardial effusion. Pulmonary arteries: Unremarkable. Aorta: Thoracic aorta non-dilated. Atherosclerosis Lymph nodes: Within normal limits. Tubes, Catheters, and Lines: Right-sided [id number] catheter. The tip is at the cavoatrial juncti on. Soft tissues: Unremarkable. Bones:No suspicious lytic or sclerotic lesions. ABDOMEN: Liver: There is diffuse decreased attenuation of the liver consistent with fatty infiltration. The l iver measures 17.4 cm long. No measurable mass. The patient is status post Whipple procedure. Portal, Superior Mesenteric, and Splenic Veins: Unremarkable. Gallbladder and Biliary Tract: No biliary ductal dilatation. Pancreas: There has been interval increase in size of the soft tissue mass in the region of the pancr eatic surgical bed. It measures 3.1 x 3.6 cm compared to 2.5 cm on the prior examination. There is compression of the superior mesenteric and splenic veins at the confluence anterior to the mass. The re is also narrowing of the left renal vein. There is a question of hypodense material associated wi th the left renal vein and thrombus cannot be excluded. There is moderate narrowing of the superior mesenteric artery at its origin. It may be partially in capsulated by this soft tissue mass. There is atrophy of the tail of the pancreas. There is a small amount of fluid seen in the peripancreatic region. No focal fluid collection is identified. Spleen: Normal. Adrenals: No masses seen. Kidneys: Normal size, contour and axis. No radiodense stones or obstructive uropathy. No masses seen. Abdominal Aorta: Abdominal portion non-dilated. Atherosclerosis. Bowel: No obstruction or bowel wall thickening. Appendix is unremarkable. Diverticulosis in the colon , but no evidence of acute diverticulitis. Peritoneal Cavity: No ascites, collection or mesenteric inflammatory response. No free air. Lymph Nodes: There are mildly enlarged lymph nodes seen in the upper abdomen. The largest is anterio r to the IVC and aorta and measures 1.1 x 0.5 cm. Bones: Degenerative changes are seen in the spine. There is no change in the cystic lesion in the in ferior endplate of L2 on the right. No suspicious lytic or sclerotic lesions are seen. Soft Tissues: Postsurgical changes are seen in the midline of the anterior abdominal wall. PELVIS: Bladder: Symmetric distention, no gross wall thickening. Reproductive Organs: Unremarkable as visualized. Lymph Nodes: Please see above. Bones: Please see above. IMPRESSION: 1. Increase in size and number of pulmonary nodules suspicious for metastatic disease. 2. Increase in size of the soft tissue mass in the pancreatic bed suspicious for recurrent or residua l tumor. 3. The pancreatic bed mass causes narrowing of the superior mesenteric and splenic veins at their con fluence and the superior mesenteric artery. Infiltration by tumor into these vessels cannot be exclu ded. 4. There is compression of the left renal vein. Possibly of a thrombus should be considered. Please see the above discussion for complete details. RADIATION DOSE DELIVERED: 1,398.23mGy.cm Total DLP DATA REPOSITORY: All CT scans at this facility are submitted to the National Radiology Data Registry (NRDR) Dose Index Registry (DIR) with the [employer] (ACR). RADIATION OPTIMIZATION: All CT scans at this facility use at least one of these dose optimization te chniques: automated exposure control; mA and/or kV adjustment per patient size (includes targeted exa ms where dose is matched to clinical indication); or iterative reconstruction.
== END 2021-07-04 01:15 ==
PROVIDERS: PCP Family Medicine; Visit Provider Internal Medicine Hematology & Oncology
DX: C25.0 Malignant neoplasm of head of pancreas (principal); Z12.89 Encounter for screening for malignant neoplasm of other sites; K76.0 Fatty (change of) liver, not elsewhere classified; R91.8 Other nonspecific abnormal finding of lung field; R59.0 Localized enlarged lymph nodes; R93.5 Abnormal findings on diagnostic imaging of other abdominal regions, including retroperitoneum
CPT/HCPCS: 36591; 74177; 80053; 71260; 85025; 86301; J3490; Q9967

== ENCOUNTER 2021-07-04 01:29 | Outpatient (RCR) | payer MEDICARE, SELFPAY ==
[2021-07-04] MEDS: Heparin 500 UNITS/5 ML SYRINGE (07:19)
[2021-07-04] MEDS: Normal Saline Flush 10 ML SYR IVP (07:20)
[2021-07-04 07:47] LABS: Abs Immature Grans 0.02 10^3/uL (0.0-0.06); Absolute Basophil Count 0.03 10^3/uL (0.0-0.2); Absolute Eosinophil Count 0.26 10^3/uL (0.0-0.7); Absolute Lymphocyte Count 0.97 10^3/uL (1.2-3.4); Absolute Monocyte Count 0.33 10^3/uL (0.1-0.8); Basophils % 0.7; Eosinophils % 5.6; HCT 35.2 % (36.0-46.0); HGB 11.3 g/dL (11.2-15.7); Immature Grans % 0.4; MCH 29.7 pg (27.0-33.0); MCHC 32.1 % (32.0-36.0); MCV 92.4 fL (80-95); MPV 9.3 fL (8.0-11.0); Monocytes % 7.2; Neutrophils % 65.1; Nucleated RBC 0 %; Platelet Count 299 10^3/uL (130-400); RBC 3.81 10^6/uL (3.93-5.22); RDW 14.3 % (11.7-14.6); RDW-SD 49.1 fL; WBC 4.61 10^3/uL (4.4-10.8)
[2021-07-04 08:39] LABS: ALT 65 U/L (14-59); AST 56 U/L (15-37); Albumin 3.7 g/dL (3.4-5.0); Alkaline Phosphatase 295 U/L (46-116); Anion Gap 9.6 mmol/L (3-11); BUN 19 mg/dL (7-18); Bilirubin, Total 0.4 mg/dL (0.2-1.0); CO2 27.4 mmol/L (21.0-32.0); CREATININE 0.7 mg/dL (0.55-1.02); Calcium 8.9 mg/dL (8.5-10.1); Chloride 101 mmol/L (98-107); Glucose 118 mg/dL (74-106); Potassium 3.8 mmol/L (3.5-5.1); Sodium 138 mmol/L (136-145); Total Protein 7.9 g/dL (6.4-8.2)
[2021-07-05 12:15] LABS: CA 19-9 8414 U/mL (<35)
== END 2021-07-31 23:59 | disposition home or self-care (01) ==
LOC: INF 01:29
PROVIDERS: PCP Family Medicine; Visit Provider Internal Medicine Hematology & Oncology
DX: C25.0 Malignant neoplasm of head of pancreas (principal); Z45.2 Encounter for adjustment and management of vascular access device
CPT/HCPCS: 36591; 80053; 85025; 86301

== ENCOUNTER 2021-07-17 11:42 | Emergency (ER) | payer MEDICARE, SELFPAY ==
[2021-07-17 12:30] VITALS: BP 149/66; PULSE 67; RESP 20; TEMP 36.4; O2SAT 98
--- NOTE | 2021-07-17 12:45 | DI.CT_ITS ---
Exam(s) CT ABDOMEN PELVIS W EXAM: CT ABDOMEN PELVIS W CLINICAL HISTORY: abdominal wall abscess, h/o panc ca s/p whipple. TECHNIQUE: Imaging Protocol: Axial computed tomography images with coronal and sagittal reformatted images were created and reviewed CONTRAST MATERIAL: Intravenous: Omnipaque 350 Contrast volume:100 ml Oral: no COMPARISON: CT CT CHEST/ABD/PEL W from 07/04/2021 FINDINGS: There is now a collection measuring 3.1 x 2.8 cm by 2.8 cm in in the anterior subcutaneous fat of the upper abdominal wall in the previous location of a feeding tube. This area was unremarkable on the p rior exam. Findings are consistent with an abscess. There is scarring around the upper around the umb ilicus and in the midline. The heart is mildly enlarged. The lung bases are clear. The liver is enlarged and shows fatty infil tration. The fatty infiltration may have improved slightly when compared with the previous exam. No focal lesion lesions are identified. There is biliary air related to previous Whipple procedure. A rounded soft tissue density mass is again noted in the midline in the region of the pancreatic head. Surgical clips are again noted in this area. This appears stable. There is severe attenuation of t he left renal vein. There is now apparent invasion into the superior mesenteric vein and narrowing of the adjacent superior mesenteric artery. There is again noted to be severe attenuation of the spleni c vein.. There is no splenic infarct. There is no bowel wall thickening or dilatation. No pneumatosis . No ascites. The kidneys, adrenals, bladder, uterus and ovaries are unremarkable. The appendix is normal. No fract ures or lytic bony lesions are seen. Impression: 3.1 centimeter abscess in the left anterior subcutaneous fat in the region of the a prior feeding tub e. Stable size of mass in the pancreatic bed which shows attenuation of adjacent vessels and some invas ion into the superior mesenteric vein. RADIATION DOSE DELIVERED: 1,143.13mGy.cm Total DLP DATA REPOSITORY: All CT scans at this facility are submitted to the National Radiology Data Registry (NRDR) Dose Index Registry (DIR) with the [employer] (ACR). RADIATION OPTIMIZATION: All CT scans at this facility use at least one of these dose optimization te chniques: automated exposure control; mA and/or kV adjustment per patient size (includes targeted exa ms where dose is matched to clinical indication); or iterative reconstruction.
--- NOTE | 2021-07-17 13:00 | W.ED.GENAD ---
Discharge Plan Disposition Patient Disposition: HOME Condition: Improving Discharge Details Clinical Impression: Cutaneous abscess of abdominal wall Primary Care Provider: Aissatou Grayson ED Provider: Angela Granados Home Meds and New Rx's Prescriptions: Continued Myrbetriq 25 mg tablet extended release 24 hr 25 mg PO DAILY Qty: 90 RF: 4 Hold Instructions: Home Medication placed on hold at Doctor's office omeprazole 20 mg capsule,delayed release(DR/EC) 20 mg PO DAILY RF: 0 fluoxetine 20 mg capsule 20 mg PO DAILY RF: 0 diclofenac sodium 1 % gel 2 g topical QID RF: 0 ferrous sulfate 325 mg (65 mg iron) tablet 325 mg PO .COMPLEX RF: 0 naproxen sodium 220 mg tablet 220 mg PO BID PRNRF: 0 multivitamin Tablet 1 tab PO DAILY RF: 0 meloxicam 7.5 mg tablet 7.5 mg PO DAILY RF: 0 Creon 24,000-76,000 -120,000 unit capsule,delayed release(DR/EC) See Rx Instructions PO DAILY RF: 0 aspirin [Aspir-81] 81 MG tablet,delayed release (DR/EC) 81 mg PO QAM RF: 0 triamcinolone acetonide 5 GM paste 1 ea Topical PRN PRNRF: 0 estradiol [Estrace] 42.5 GM cream 1 ea VG .2X A WEEK RF: 0 hydroxyzine HCl 10 MG tablet 10 mg PO PRN PRNRF: 0 diphenhydramine HCl [NightTime Sleep Aid (diphen)] 25 MG tablet 25 mg PO PRN PRNRF: 0 diphenhydramine-acetaminophen [Tylenol PM Extra Strength] 1 EACH tablet 1 ea PO HS PRN PRNRF: 0 levothyroxine [Levoxyl] 112 MCG tablet 112 mcg PO DAILY RF: 0 calcium carbonate-vitamin D3 [Calcium 500 With D] 1 EACH tablet 1 ea PO DAILY RF: 0 Emergen-C 1,000 MG powder effervescent in packet 1 ea PO DAILY RF: 0 Discharge Instructions Instructions: Abscess (ED) Additional Instructions: Please return immediately to the emergency department if you develop any new or worsening symptoms, if your condition does not improve as expected, or if you become otherwise concerned. It is extremely important that you call soon as possible to make an appointment to be seen in follow-up for this visit by your primary care doctor. You will also need to be seen tomorrow in follow-up for a wound check by surgery. Referrals: Elena Evans MD [ [facility] STAFF PHYSICIAN] - Aissatou Grayson MD [Primary Care Provider] - Discharge Data Discharge Date/Time-TO BE ENTERED AT DEPARTURE: 07/17/21 17:16 Medical Decision Making Gale Andino is a 81-year-old woman with a history of pancreatic cancer status post Whipple 02/18 who presented to the emergency department with redness, pain, and swelling at site of prior feeding tube insertion (feeding tube removed 2 months ago without complication until now). On exam patient is well nontoxic-appearing. There is what appears to be an abscess located in feeding tube site without crepitus. There is no other tenderness of the abdomen. Concern for superficial abscess of the abdominal wall versus abscess extending potentially into peritoneal cavity, other. Plan for port access, screening labs, CT abdomen/pelvis for further evaluation. Exam/history at this time sent with sepsis, necrotizing fasciitis. Labs reviewed, lactate normal, potassium 3.1, WBC 6.47. Plan for potassium repletion. CT per radiology shows superficial abdominal abscess that does not extend into the muscular wall. There is tracking of the abscess along prior feeding tube insertion track. Discussed CT findings with Dr. Evans of surgery, who reviewed CT images. She recommended I&D of abscess along feeding tube past, will see in follow-up tomorrow. Abscess visualized with ultrasound, I&D performed with ultrasound guidance without complication, culture obtained. At this time there is no significant surrounding cellulitis, as patient has follow-up tomorrow we will hold off on antibiotics. I had a discussion with Patient regarding return to emergency department precautions, home care, and importance of outpatient follow-up. Pt verbalizes understanding of the plan and is amenable. Patient discharged to home with clear plan for outpatient follow-up. All questions were answered. Disposition decision was made weighing the risks and benefits of hospitalization versus outpatient treatment, the risk for further decompensation, and the patient's wishes. Medical Records Medical records reviewed: Yes I reviewed the patient's medical records. Imaging Data Radiologic Study: Attestation: I personally reviewed and interpreted this imaging study as follows: Radiologist's impression: CT ABDOMEN PELVIS W EXAM: CT ABDOMEN PELVIS W CLINICAL HISTORY: abdominal wall abscess, h/o panc ca s/p whipple. TECHNIQUE: Imaging Protocol: Axial computed tomography images with coronal and sagittal reformatted images were created and reviewed CONTRAST MATERIAL: Intravenous: Omnipaque 350 Contrast volume:100 ml Oral: no COMPARISON: CT CT CHEST/ABD/PEL W from 07/04/2021 FINDINGS: There is now a collection measuring 3.1 x 2.8 cm by 2.8 cm in in the anterior subcutaneous fat of the upper abdominal wall in the previous location of a feeding tube. This area was unremarkable on the prior exam. Findings are consistent with an abscess. There is scarring around the upper around the umbilicus and in the midline. The heart is mildly enlarged. The lung bases are clear. The liver is enlarged and shows fatty infiltration. The fatty infiltration may have improved slightly when compared with the previous exam. No focal lesion lesions are identified. There is biliary air related to previous Whipple procedure. A rounded soft tissue density mass is again noted in the midline in the region of the pancreatic head. Surgical clips are again noted in this area. This appears stable. There is severe attenuation of the left renal vein. There is now apparent invasion into the superior mesenteric vein and narrowing of the adjacent superior mesenteric artery. There is again noted to be severe attenuation of the splenic vein.. There is no splenic infarct. There is no bowel wall thickening or dilatation. No pneumatosis. No ascites. The kidneys, adrenals, bladder, uterus and ovaries are unremarkable. The appendix is normal. No fractures or lytic bony lesions are seen. Impression: 3.1 centimeter abscess in the left anterior subcutaneous fat in the region of the a prior feeding tube. Stable size of mass in the pancreatic bed which shows attenuation of adjacent vessels and some invasion into the superior mesenteric vein. Lab Data Lab results reviewed: Yes I reviewed the patient's lab results. Labs: 07/17/21 16:45 Abdomen Wound Culture - Final Strep Intermedius(Milleri Grp) 07/17/21 16:45 Abdomen Gram Stain - Final Laboratory Tests Range/Units 07/17/21 07/17/21 07/17/21 13:09 13:09 13:09 WBC (4.4-10.8) 10^3/uL 6.47 RBC (3.93-5.22) 10^6/uL 3.35 L Hgb (11.2-15.7) g/dL 10.0 L Hct (36.0-46.0) % 30.4 L MCV (80-95) fL 90.7 MCH (27.0-33.0) pg 29.9 MCHC (32.0-36.0) % 32.9 RDW (11.7-14.6) % 14.4 Plt Count (130-400) 10^3/uL 275 MPV (8.0-11.0) fL 8.9 Immature Gran % 0.5 Neutrophils % 77.1 Lymphocytes % 11.7 Monocytes % 9.0 Eosinophils % 1.5 Basophils % 0.2 Nucleated RBC % % 0 Absolute Neutrophils (1.2-6.7) 10^3/uL 4.99 Absolute Lymphocytes (1.2-3.4) 10^3/uL 0.76 L Absolute Monocytes (0.1-0.8) 10^3/uL 0.58 Absolute Eosinophils (0.0-0.7) 10^3/uL 0.10 Absolute Basophils (0.0-0.2) 10^3/uL 0.01 VBG Lactate (0.6-1.4) mmol/L 0.5 L Sodium (136-145) mmol/L 135 L Potassium (3.5-5.1) mmol/L 3.1 L Chloride (98-107) mmol/L 101 Carbon Dioxide (21.0-32.0) mmol/L 25.3 Anion Gap (3-11) mmol/L 8.7 BUN (7-18) mg/dL 11 Creatinine (0.55-1.02) mg/dL 0.5 L Estimated GFR/1.73 m2 (mL/min/1.73m2) >= 60.00 Glucose (74-106) mg/dL 98 Calcium (8.5-10.1) mg/dL 8.3 L Total Bilirubin (0.2-1.0) mg/dL 0.4 AST (15-37) U/L 30 ALT (14-59) U/L 36 Alkaline Phosphatase (46-116) U/L 271 H Total Protein (6.4-8.2) g/dL 7.4 Albumin (3.4-5.0) g/dL 3.3 L HPI General Mode of arrival: ambulatory. Date/Time Provider Initiated Documentation: 07/17/21 11:55. Limitations to Documentation: no limitations. Information obtained by: patient, RN notes reviewed and old records reviewed. HPI Narrative: Gale Andino is a 81-year-old woman with a history of pancreatic cancer status post Whipple 02/18 presenting to emergency department with skin infection. Patient reports that she had a feeding tube in place in the past that was removed 2 months ago. She reports that in the last 2 to 3 days she has noticed redness, pain, and swelling of her abdomen at the site of her previous feeding tube insertion. Patient reports that she has had no issues with the site since feeding tube was removed 2 months ago. She denies any trauma or other known inciting event. Patient reports that swelling and pain has increased significantly since yesterday. Patient reports that she has no other abdominal pain other than localized at the site, and has had no other new symptoms. She denies fever, cough, shortness of breath, vomiting, diarrhea, numbness, weakness, other rash. She denies any drainage from the site. Feels otherwise in her usual state of health. Has not been on chemotherapy for several months. Related Data Home Medications Medication Instructions Recorded Confirmed aspirin [Aspir-81] 81 mg PO QAM 07/16/15 07/21/21 estradiol [Estrace] 1 ea VG .2X A WEEK 07/16/15 07/21/21 hydroxyzine HCl 10 mg PO PRN PRN 07/16/15 07/21/21 triamcinolone acetonide 1 ea TOPICAL PRN PRN 07/16/15 07/21/21 Emergen-C 1 ea PO DAILY 08/03/16 07/21/21 calcium carbonate-vitamin D3 1 ea PO DAILY 08/03/16 07/21/21 [Calcium 500 With D] diphenhydramine HCl [NightTime 25 mg PO PRN PRN 08/03/16 07/21/21 Sleep Aid (diphen)] diphenhydramine-acetaminophen 1 ea PO HS PRN PRN 08/03/16 07/21/21 [Tylenol PM Extra Strength] levothyroxine [Levoxyl] 112 mcg PO DAILY 08/03/16 07/21/21 fluoxetine 20 mg capsule 20 mg PO DAILY 08/18/19 07/21/21 mirabegron 25 mg tablet,extended 25 mg PO DAILY #90 tab 10/24/20 07/21/21 release 24 hr diclofenac sodium 1 % topical gel 2 g TOPICAL QID 11/15/20 07/21/21 ferrous sulfate 325 mg (65 mg 325 mg PO .COMPLEX 11/15/20 07/21/21 iron) tablet [id number] See Rx Instructions PO DAILY cap 11/15/20 07/21/21 24,000-76,000-120,000 unit capsule,delayed rel meloxicam 7.5 mg tablet 7.5 mg PO DAILY 11/15/20 07/21/21 multivitamin 1 tab PO DAILY 11/15/20 07/21/21 naproxen sodium 220 mg tablet 220 mg PO BID PRN 11/15/20 07/21/21 omeprazole 20 mg capsule,delayed 20 mg PO DAILY 01/24/21 07/21/21 release Previous Rx's Medication Instructions Recorded mirabegron 25 mg tablet,extended 25 mg PO DAILY #90 tab 10/24/20 release 24 hr Allergies Allergy/AdvReac Type Severity Reaction Status Date / Time duloxetine HCl AdvReac Unknown Unverified 07/21/21 09:55 [[facility] black flies AdvReac Severe hives Uncoded 07/21/21 09:55 wood smoke AdvReac Severe hives Uncoded 07/21/21 09:55 General Stated Complaint: Cellulitis JREOD: 3 Review of Systems Narrative: Constitutional: denies fevers Eyes: denies eye pain ENT: denies ear pain, dental pain, sore throat Cardiovascular: denies chest pain, edema Respiratory: denies SOB, cough GI: Reports skin redness, swelling, and pain at site of prior feeding tube insertion left upper quadrant, denies other abdominal pain, vomiting, diarrhea : denies flank pain MSK: denies back pain, neck pain, arthralgias, myalgias Skin: denies rash Neuro: denies headaches, numbness, weakness PFSH All Active Problems Cutaneous abscess of abdominal wall (Acute) Nausea (Acute) History of radiation therapy (Acute) ongoing having #03/25 tx today Elevated LDH (Acute) Unintentional weight loss (Acute) Adenocarcinoma of head of pancreas (Chronic) Palliative care patient (Acute) Abnormal ECG (Acute) Pancreatic mass (Acute) Mass of left lung (Acute) Sialolithiasis (Acute) Sialoadenitis (Acute) Abscess of internal cheek (Acute) 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 Daughter No problems noted. 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 Do you think of yourself as: straight/heterosexual Current gender identity: female What is your relationship status?: How often do you talk on the phone with friends or family?: three or more times per week How often do you get together with friends or relatives?: twice per week How often do you attend hinduism or scientologist services?: 4 or more times per year Panel score (0-1 are the most socially isolated patients): 3 What type of physical activity do you participate in: walking Duration: 15-30 minutes/day Frequency: 5-6 times per week Peyton/Restorationism: Rastafari Special peyton needs: No Seatbelt use: always Working smoke detector in home: Yes Do you feel safe at home: Yes Do you feel safe in your relationship?: Yes Additional Social history: to Quan. Has 2 daughters, Nena, who is an ICU nurse and Chelsey, who is a hospice nurse. Gale is doing much better than she was when first diagnosed. Sister in May 2020; she had heart burn and dyspepsia after her . When she had weight loss too, PCP worked her up. Found pancreatic cancer in head of pancreas. NO KNOWN METS at this time. Had negative w/u for endometrial ca; stage 1 lung cancer, very slow growing rare type, found. Watching only. Plan is to go ahead with chemo and radiation, then Whipple. Exam Narrative Exam Narrative: Constitutional: well and [id number], pleasant, conversing normally HENT: head atraumatic/normocephalic/normal inspection, mucous membranes moist Eyes: conjunctiva normal, sclera normal, pupils 3mm b/l Neck: no stridor, normal ROM, trachea midline Chest: normal inspection, port present and accessed Resp: normal work of breathing, speaking in full sentences Cardio: normal rate, normal rhythm GI: Left upper quadrant with 4 x 4 centimeter area of induration, erythema, tenderness to palpation with central fluctuance at site of prior feeding tube scar, abdomen soft, otherwise non-tender, non-distended, no rebound, no guarding Back: normal inspection, no rash Skin: warm, dry, normal color, no rash Neuro: alert, not altered, grossly non-focal, normal tone Ext: no edema, no posterior calf tenderness to palpation Psych: normal mood, normal affect, normal behavior Course Vital Signs Vital signs: Vital Signs Temperature 36.4 C L 07/17/21 12:30 Pulse 67 07/17/21 12:30 Respiratory Rate 20 07/17/21 12:30 Blood Pressure 149/66 H 07/17/21 12:30 Pulse Oximetry 98 07/17/21 12:30 Temperature 36.4 C L 07/17/21 12:30 Temperature Source Tympanic 07/17/21 12:30 Pulse 67 07/17/21 12:30 Respiratory Rate 20 07/17/21 12:30 Blood Pressure 149/66 H 07/17/21 12:30 Blood Pressure Position Sitting 07/17/21 12:30 Pulse Oximetry 98 07/17/21 12:30 Oxygen Delivery Method Room Air 07/17/21 12:30 Oxygen Flow Rate 0 07/17/21 12:30 Pain Level 63 07/17/21 12:30 Procedures Abscess I/D Site: Abdomen Side (if applicable): Left Sedation/analgesia: None Local Anesthetic: Lidocaine 1% Amount of anesthesia used (mL): 4 Technique: Incised with #11 Blade Amount of fluid expressed (mL): 4 Irrigation: Yes Packing used?: None
[2021-07-17 13:12] LABS: Abs Immature Grans 0.03 10^3/uL (0.0-0.06); Absolute Basophil Count 0.01 10^3/uL (0.0-0.2); Absolute Lymphocyte Count 0.76 10^3/uL (1.2-3.4); Absolute Monocyte Count 0.58 10^3/uL (0.1-0.8); Absolute Neutrophil Count 4.99 10^3/uL (1.2-6.7); Basophils % 0.2; Eosinophils % 1.5; HCT 30.4 % (36.0-46.0); Immature Grans % 0.5; Lactate 0.5 mmol/L (0.6-1.4); Lymphocytes % 11.7; MCH 29.9 pg (27.0-33.0); MCHC 32.9 % (32.0-36.0); MCV 90.7 fL (80-95); MPV 8.9 fL (8.0-11.0); Neutrophils % 77.1; Nucleated RBC 0 %; Platelet Count 275 10^3/uL (130-400); RBC 3.35 10^6/uL (3.93-5.22); RDW 14.4 % (11.7-14.6); RDW-SD 47.9 fL; WBC 6.47 10^3/uL (4.4-10.8)
[2021-07-17 13:28] LABS: ALT 36 U/L (14-59); AST 30 U/L (15-37); Albumin 3.3 g/dL (3.4-5.0); Alkaline Phosphatase 271 U/L (46-116); Anion Gap 8.7 mmol/L (3-11); BUN 11 mg/dL (7-18); Bilirubin, Total 0.4 mg/dL (0.2-1.0); CO2 25.3 mmol/L (21.0-32.0); CREATININE 0.5 mg/dL (0.55-1.02); Calcium 8.3 mg/dL (8.5-10.1); Chloride 101 mmol/L (98-107); Glucose 98 mg/dL (74-106); Potassium 3.1 mmol/L (3.5-5.1); Sodium 135 mmol/L (136-145); Total Protein 7.4 g/dL (6.4-8.2)
[2021-07-17] MEDS: Omnipaque 350 MG/ML 100 ML BTL IV (14:40)
[2021-07-17] MEDS: POTASSIUM CHLORIDE 20 MEQ/100 ML BAG 50 MEQ IVPB (14:45)
--- NOTE | 2021-07-17 16:39 | NUR.NOTE ---
[facility], for SaturdayJul 18. Dr. Evans was consulted. Callie Wilcox Nursing Note:
[2021-07-17 17:16] VITALS: BP 149/66; PULSE 67; RESP 20; TEMP 36.4; O2SAT 98
--- NOTE | 2021-07-21 08:12 | W.ED.FU ---
Patient was contacted on 07/21/2021 and reports that her wound is symptomatically improved, she actually has follow-up with surgeon scheduled today which she is planning to attend. I did let her know that she had scant gram-positive vianney on her wound culture, however no indication for antibiotic given improvement with I&D and close outpatient surgical
== END 2021-07-17 17:16 | disposition home or self-care (01) ==
PROVIDERS: Emergency Provider Student in an Organized Health Care Education/Training Program; PCP Family Medicine
DX: L02.211 Cutaneous abscess of abdominal wall (principal)
CPT/HCPCS: 10060; 36415; 80053; 87077; 96365; 96366; 99285; 74177; 83605; 85025; 87070; 87186; 87205; 99283; J3480; J3490

== ENCOUNTER → 2021-07-18 10:31 | Outpatient (BNVA) | payer MEDICARE, SELFPAY | PROVIDERS: PCP Family Medicine; Referring Provider Family Medicine; Visit Provider Surgery | DX: L02.211 Cutaneous abscess of abdominal wall (principal) | CPT/HCPCS: 99213 ==

== ENCOUNTER → 2021-07-21 09:53 | Outpatient (BNVA) | payer MEDICARE, SELFPAY | PROVIDERS: PCP Family Medicine; Referring Provider Family Medicine; Visit Provider Surgery | DX: Z48.817 Encounter for surgical aftercare following surgery on the skin and subcutaneous tissue (principal); L02.91 Cutaneous abscess, unspecified | CPT/HCPCS: 99212 ==

== ENCOUNTER → 2021-07-26 10:16 | Outpatient (BNVA) | payer MEDICARE, SELFPAY | PROVIDERS: PCP Family Medicine; Referring Provider Family Medicine; Visit Provider Nurse Practitioner Gerontology | DX: N39.46 Mixed incontinence (principal); C25.0 Malignant neoplasm of head of pancreas | CPT/HCPCS: 99442 ==